=== PATIENT | male | born 1945 | race Two or more races ===

== ENCOUNTER 2022-10-02 14:54 | Emergency (ER) | payer OTHER ==
[~2022-10-02] VITALS: Ht 172.7 cm; Wt 64.5 kg
[2022-10-02 16:44] LABS: Urine Bacteria FEW /hpf (None Seen); Urine Blood 1+ /uL (Negative); Urine Clarity Clear (Clear); Urine Color Yellow (Yellow); Urine Hyaline Cast FEW /lpf (0 - 2); Urine Mucus FEW (None Seen); Urine Protein, UAD TRACE (Negative); Urine Specific Gravity 1.012 (1.001-1.035); Urine Urobilinogen Normal (Negative); Urine WBC <1 /hpf (0 - 3); Urine pH 5.5 (5.0-8.0)
[2022-10-02 17:12] LABS: Basophils # (auto) 0.1 10 ^3/uL (0-0.2); Basophils % (auto) 0.6 % (0.0-2.0); Eosinophils # (auto) 0.1 10 ^3/uL (0-0.8); Eosinophils % (auto) 0.7 % (0.0-7.0); Hematocrit 37.8 % (41.0-53.0); Hemoglobin 12.8 g/dL (13.5-17.5); Lymphocytes % (auto) 10.1 % (10.0-50.0); Mean Corpuscular Hemoglobin 30.3 pg (28.0-32.0); Mean Corpuscular Hgb Conc. 33.8 g/dL (32.0-36.0); Mean Corpuscular Volume 89.7 fL (80.0-100.0); Monocytes # (auto) 0.8 10 ^3/uL (0-1.3); Monocytes % (auto) 8.2 % (0.0-12.0); Neutrophils # (auto) 8.4 10 ^3/uL (1.6-8.6); Neutrophils % (auto) 80.4 % (37.0-80.0); Red Blood Cells 4.21 10^6/uL (4.5-5.90); Red Cell Distribution Width 12.7 % (11.8-14.3); White Blood Cell 10.4 10^3/uL (4.4-10.8)
[2022-10-02 17:31] LABS: Albumin 3.8 g/dL (3.4-5.0); Calcium 9.5 mg/dL (8.5-10.1)
[2022-10-02 17:34] LABS: BUN/Creatinine Ratio 10.5 (10.0-20.0); Bilirubin, Total 0.8 mg/dL (0.2-1.0); Total Protein 8.2 g/dL (6.4-8.2)
[2022-10-02] MEDS ORDERED: TAMS-35 PO ×3 (19:27→19:38)
[2022-10-02] MEDS ORDERED: HYDR-4902 PO (19:38)
[2022-10-02] MEDS ORDERED: HYDROcodone-ACET 5/325MG TAB PO ONE (19:45)
[2022-10-02 20:11] VITALS: BP 167/103; PULSE 97; RESP 20; TEMP 98; O2SAT 98
== END 2022-10-02 20:16 | disposition home or self-care (01) ==
LOC: ER 14:54
DX: N13.30 Unspecified hydronephrosis (principal); R33.9 Retention of urine, unspecified; Z79.899 Other long term (current) drug therapy
CPT/HCPCS: 36415; 51702; 74176; 80053; 81001; 85025

== ENCOUNTER → 2022-12-17 | Outpatient (CLI) | payer OTHER ==
[~2022-12-17] VITALS: Ht 152.4 cm; Wt 66.7 kg
[~2022-12-17] MED LIST: ADENOSINE 56 MG in GIVE UN-DILUTED 0 ML IV STA; HYDR-4902 PO; TAMS-35 PO
== END | disposition home or self-care (01) ==
LOC: XYW 09:13
PROVIDERS: ATTEND Student in an Organized Health Care Education/Training Program
DX: Z01.810 Encounter for preprocedural cardiovascular examination (principal); I70.0 Atherosclerosis of aorta; I10 Essential (primary) hypertension; N40.1 Benign prostatic hyperplasia with lower urinary tract symptoms
CPT/HCPCS: 78452; 93017; A9500; J0153

== ENCOUNTER 2023-01-03 06:09 | Inpatient (IN) | payer OTHER ==
[2022-12-31 14:49] LABS: Basophils # (auto) 0 10 ^3/uL (0-0.2); Basophils % (auto) 0.5 % (0.0-2.0); Eosinophils # (auto) 0.2 10 ^3/uL (0-0.8); Eosinophils % (auto) 2.2 % (0.0-7.0); Hematocrit 27.6 % (41.0-53.0); Hemoglobin 9.3 g/dL (13.5-17.5); Lymphocytes # (auto) 2.3 10 ^3/uL (0.4-5.4); Lymphocytes % (auto) 24.3 % (10.0-50.0); Mean Corpuscular Hemoglobin 30.3 pg (28.0-32.0); Mean Corpuscular Hgb Conc. 33.9 g/dL (32.0-36.0); Mean Corpuscular Volume 89.4 fL (80.0-100.0); Monocytes # (auto) 0.8 10 ^3/uL (0-1.3); Monocytes % (auto) 8.3 % (0.0-12.0); Neutrophils # (auto) 6.1 10 ^3/uL (1.6-8.6); Neutrophils % (auto) 64.7 % (37.0-80.0); Red Blood Cells 3.09 10^6/uL (4.5-5.90); Red Cell Distribution Width 13.2 % (11.8-14.3); White Blood Cell 9.5 10^3/uL (4.4-10.8)
[2022-12-31 15:14] LABS: INR 1.04 (0.9-1.15); Prothrombin Time 10.9 sec (9.3-11.8)
[2022-12-31 15:21] LABS: Urine Bacteria FEW /hpf (None Seen); Urine Blood 2+ /uL (Negative); Urine Budding Yeast MANY /hpf (None Seen); Urine Clarity CLOUDY (Clear); Urine Protein, UAD 1+ (Negative); Urine Specific Gravity 1.015 (1.001-1.035); Urine Urobilinogen Normal (Negative); Urine WBC 1320 /hpf (0 - 3); Urine WBC Clumps PRESENT /hpf (None Seen); Urine pH 6.5 (5.0-8.0)
[2022-12-31 15:26] LABS: Alanine Aminotransferase 43 U/L (7-40); Albumin 4.3 g/dL (3.2-4.8); Alkaline Phosphatase 88 U/L (46-116); Anion Gap 7 (5-15); Aspartate Aminotransferase 23 U/L (13-40); BUN/Creatinine Ratio 13.8 (10.0-20.0); Blood Urea Nitrogen 38 mg/dL (9-23); Calcium 10.1 mg/dL (8.5-10.1); Carbon Dioxide 23 mmol/L (20-30); Chloride 105 mmol/L (98-107); Glucose 76 mg/dL (74-106); Potassium 4.7 mmol/L (3.5-5.1); Sodium 135 mmol/L (136-145)
[2022-12-31 15:27] LABS: Bilirubin, Total 0.5 mg/dL (0.2-1.0); Total Protein 9.3 g/dL (5.7-8.2)
[2022-12-31 15:30] LABS: Urine Color STRAW (Yellow)
[~2023-01-03] VITALS: Ht 172.7 cm; Wt 59.6 kg
[~2023-01-03 06:09] MED LIST changes: -ADENOSINE 56 MG in GIVE UN-DILUTED 0 ML IV STA; +AMLO1TAB22 PO; -HYDR-4902 PO; +LOSA25TA15 PO
[2023-01-03] MEDS ORDERED: CIPROFLOXACIN 400MG/200ML 200 ML IV ONE (06:34)
[2023-01-03] MEDS ORDERED: PROPOFOL 10 MG/ML 20 ML IV ONE (07:04)
[2023-01-03] MEDS ORDERED: fentaNYL CITRATE 100 MCG/2 ML VL ONE ×2 (07:04→15:54)
[2023-01-03] MEDS ORDERED: ONDANSETRON HCL 4 MG/2 ML VIAL ONE (07:42)
[2023-01-03] MEDS ORDERED: ePHEDrine SULFATE 50 MG/ML AMP ONE (07:42)
[2023-01-03] MEDS ORDERED: DexAMETHasone SOD PHOS 10MG/1ML VIAL INJ ONE (07:42)
[2023-01-03] MEDS ORDERED: HYDROmorphone HCL 2 MG/ML VL/or syr ONE (07:58)
[2023-01-03] MEDS ORDERED: MORPHINE SULFATE INJ 2 MG/ml SYRG IV PRN ×2 (08:45→10:00)
[2023-01-03] MEDS ORDERED: NITROGLYCERIN 0.4 MG SL TAB SL PRN (08:45)
[2023-01-03] MEDS ORDERED: ONDANSETRON HCL 4 MG/2 ML VIAL IV PRN ×2 (09:00→10:00)
[2023-01-03] MEDS ORDERED: HYDROmorphone HCL 2 MG/ML VL/or syr IV PRN (09:00)
[2023-01-03] MEDS ORDERED: ACETAMINOPHEN 500 MG TAB PO PRN (10:00)
[2023-01-03] MEDS ORDERED: SODIUM CHLORIDE 0.9% 1,000 ML IV ONE (10:00)
[2023-01-03] MEDS: amLODIPine BESYLATE 5 MG TAB PO SCH (10:00)
[2023-01-03] MEDS ORDERED: LIDOCAINE 2%HCL (LOCAL ANESTH.) INJ 20ML MDV ONE (15:48)
[2023-01-03] MEDS ORDERED: IODIXANOL 320MG/ML 100ML BTL IV ONE (15:48)
[2023-01-03] MEDS ORDERED: MIDAZOLAM HCL 2MG/2ML 2ml VIAL (1mg/ml) ONE (15:54)
[2023-01-03] MEDS ORDERED: cefTRIAXone 1GM/50ML D5W 50 ML IV ONE (16:05)
[2023-01-03] MEDS ORDERED: hydrALAZINE HCL 20 MG/ML VL ONE (16:38)
[2023-01-03 17:31] VITALS: BP 121/73; PULSE 93; RESP 15; TEMP 98.9; O2SAT 100
[2023-01-03 17:44] VITALS: BP 114/72; PULSE 89; RESP 16; O2SAT 98
[2023-01-03 17:56] VITALS: BP 119/69; PULSE 85; RESP 18; O2SAT 99
[2023-01-03 18:11] VITALS: BP 111/75; PULSE 91; RESP 16; O2SAT 99
[2023-01-03 20:00] VITALS: O2SAT 99
[2023-01-03 22:00] VITALS: BP 125/68; PULSE 85; RESP 18; TEMP 97.8; O2SAT 99
[2023-01-04] VITALS (7 sets, daily range): BP systolic 103–128; BP diastolic 66–74; PULSE 70–82; RESP 16–21; TEMP 76–98.7; O2SAT 93–99
[2023-01-04] MEDS: HYDROcodone-ACET 5/325MG TAB PO PRN ×2 (03:08→22:30)
[2023-01-04 06:59] LABS: Basophils # (auto) 0 10 ^3/uL (0-0.2); Basophils % (auto) 0.2 % (0.0-2.0); Eosinophils # (auto) 0 10 ^3/uL (0-0.8); Lymphocytes # (auto) 1.3 10 ^3/uL (0.4-5.4); Monocytes # (auto) 0.7 10 ^3/uL (0-1.3); Neutrophils % (auto) 77.7 % (37.0-80.0)
[2023-01-04 07:01] LABS: Eosinophils % (auto) 0.2 % (0.0-7.0); Hematocrit 23.1 % (41.0-53.0); Lymphocytes % (auto) 14.3 % (10.0-50.0); Mean Corpuscular Hemoglobin 30.7 pg (28.0-32.0); Mean Corpuscular Hgb Conc. 34.5 g/dL (32.0-36.0); Monocytes % (auto) 7.6 % (0.0-12.0); Neutrophils # (auto) 6.9 10 ^3/uL (1.6-8.6); Red Cell Distribution Width 13.4 % (11.8-14.3); White Blood Cell 8.9 10^3/uL (4.4-10.8)
[2023-01-04 07:02] LABS: Chloride 107 mmol/L (98-107); Potassium 4.7 mmol/L (3.5-5.1); Sodium 135 mmol/L (136-145)
[2023-01-04 07:03] LABS: Anion Gap 7 (5-15); Calcium 9.2 mg/dL (8.5-10.1); Carbon Dioxide 21 mmol/L (20-30)
[2023-01-04 07:08] LABS: BUN/Creatinine Ratio 14.3 (10.0-20.0); Blood Urea Nitrogen 40 mg/dL (9-23); Glucose 91 mg/dL (74-106)
[2023-01-04] MEDS: cefTRIAXone 1GM/50ML D5W 50 ML IV SCH (09:39)
[2023-01-04] MEDS: amLODIPine BESYLATE 5 MG TAB PO SCH (10:00)
[2023-01-04] MEDS: DOCUSATE SOD 100 MG CAP PO PRN (17:31)
[2023-01-05] VITALS (7 sets, daily range): BP systolic 109–131; BP diastolic 65–75; PULSE 67–83; RESP 14–18; TEMP 97.8–98.5; O2SAT 96–100
[2023-01-05] MEDS: cefTRIAXone 1GM/50ML D5W 50 ML IV SCH (09:25)
[2023-01-05] MEDS: amLODIPine BESYLATE 5 MG TAB PO SCH (09:25)
[2023-01-05] MEDS: DOCUSATE SOD 100 MG CAP PO PRN (09:28)
[2023-01-05 14:04] LABS: Basophils # (auto) 0.1 10 ^3/uL (0-0.2); Eosinophils # (auto) 0.1 10 ^3/uL (0-0.8); Eosinophils % (auto) 1.6 % (0.0-7.0); Hematocrit 26.5 % (41.0-53.0); Hemoglobin 8.9 g/dL (13.5-17.5); Lymphocytes # (auto) 1.6 10 ^3/uL (0.4-5.4); Lymphocytes % (auto) 19.3 % (10.0-50.0); Mean Corpuscular Hgb Conc. 33.6 g/dL (32.0-36.0); Mean Corpuscular Volume 89.2 fL (80.0-100.0); Monocytes # (auto) 0.4 10 ^3/uL (0-1.3); Monocytes % (auto) 4.3 % (0.0-12.0); Neutrophils # (auto) 6.2 10 ^3/uL (1.6-8.6); Neutrophils % (auto) 73.8 % (37.0-80.0); Red Blood Cells 2.97 10^6/uL (4.5-5.90); Red Cell Distribution Width 13.8 % (11.8-14.3); White Blood Cell 8.5 10^3/uL (4.4-10.8)
[2023-01-05 14:05] LABS: Hemoglobin 8.8 g/dL (13.5-17.5); Mean Corpuscular Hemoglobin 30.4 pg (28.0-32.0); Mean Corpuscular Volume 89.4 fL (80.0-100.0); Red Blood Cells 2.91 10^6/uL (4.5-5.90); White Blood Cell 8.6 10^3/uL (4.4-10.8)
[2023-01-05 14:12] LABS: Chloride 105 mmol/L (98-107); Potassium 4.4 mmol/L (3.5-5.1); Sodium 135 mmol/L (136-145)
[2023-01-05 14:13] LABS: Anion Gap 9 (5-15); Calcium 8.8 mg/dL (8.7-10.4); Carbon Dioxide 21 mmol/L (20-30)
[2023-01-05 14:18] LABS: BUN/Creatinine Ratio 16.9 (10.0-20.0); Blood Urea Nitrogen 45 mg/dL (9-23); Glucose 146 mg/dL (74-106)
[2023-01-05] MEDS: HYDROcodone-ACET 5/325MG TAB PO PRN (15:26)
[2023-01-06 05:00] VITALS: BP 129/75; PULSE 81; RESP 18; TEMP 98.5; O2SAT 97
[2023-01-06 05:44] LABS: Basophils # (auto) 0 10 ^3/uL (0-0.2); Basophils % (auto) 0.6 % (0.0-2.0); Eosinophils # (auto) 0.2 10 ^3/uL (0-0.8); Eosinophils % (auto) 2.3 % (0.0-7.0); Hematocrit 24.9 % (41.0-53.0); Hemoglobin 8.6 g/dL (13.5-17.5); Lymphocytes # (auto) 1.6 10 ^3/uL (0.4-5.4); Lymphocytes % (auto) 20.2 % (10.0-50.0); Mean Corpuscular Hemoglobin 30.6 pg (28.0-32.0); Mean Corpuscular Hgb Conc. 34.4 g/dL (32.0-36.0); Mean Corpuscular Volume 89.1 fL (80.0-100.0); Monocytes # (auto) 0.7 10 ^3/uL (0-1.3); Monocytes % (auto) 9.2 % (0.0-12.0); Neutrophils # (auto) 5.3 10 ^3/uL (1.6-8.6); Neutrophils % (auto) 67.7 % (37.0-80.0); Red Blood Cells 2.79 10^6/uL (4.5-5.90); Red Cell Distribution Width 13.5 % (11.8-14.3); White Blood Cell 7.8 10^3/uL (4.4-10.8)
[2023-01-06 05:59] LABS: Alanine Aminotransferase 28 U/L (7-40); Albumin 3.6 g/dL (3.2-4.8); Alkaline Phosphatase 76 U/L (46-116); Anion Gap 7 (5-15); Aspartate Aminotransferase 21 U/L (13-40); BUN/Creatinine Ratio 15.1 (10.0-20.0); Blood Urea Nitrogen 40 mg/dL (9-23); Calcium 8.8 mg/dL (8.7-10.4); Carbon Dioxide 21 mmol/L (20-30); Chloride 106 mmol/L (98-107); Glucose 84 mg/dL (74-106); Potassium 4.5 mmol/L (3.5-5.1); Sodium 134 mmol/L (136-145)
[2023-01-06 06:00] LABS: Bilirubin, Total 0.3 mg/dL (0.2-1.0); Total Protein 7.7 g/dL (5.7-8.2)
[2023-01-06 08:00] VITALS: BP 144/76; PULSE 73; RESP 20; TEMP 98.8; O2SAT 97
[2023-01-06 08:47] VITALS: BP 144/76; PULSE 73; RESP 20; TEMP 98.8; O2SAT 97
[2023-01-06] MEDS: cefTRIAXone 1GM/50ML D5W 50 ML IV SCH (09:41)
[2023-01-06] MEDS: amLODIPine BESYLATE 5 MG TAB PO SCH (09:41)
[2023-01-06 13:00] VITALS: BP 127/77; PULSE 76; RESP 18; TEMP 99.3; O2SAT 99
[2023-01-06] MEDS ORDERED: DOCU-265 PO (13:11)
[2023-01-06] MEDS ORDERED: CEPH250C PO (13:11)
[2023-01-06 14:16] VITALS: BP 127/77; PULSE 76; RESP 18; TEMP 99.3; O2SAT 99
[2023-01-08 07:06] LABS: Immunoglobulin A 246 mg/dL (61-437); Immunoglobulin G, Serum 2954 mg/dL (603-1613); Immunoglobulin M 161 mg/dL (15-143)
[2023-01-08 08:07] LABS: PSA Free 3.67 ng/mL
[2023-01-08 13:06] LABS: Alpha-1-Globulin 0.2 g/dL (0.0-0.4); Alpha-2-Globulin 0.6 g/dL (0.4-1.0); Gamma Globulin 2.6 g/dL (0.4-1.8); Globulin Total 4.3 g/dL (2.2-3.9); Protein Total Serum 7.3 g/dL (6.0-8.5)
== END 2023-01-06 16:05 | disposition home or self-care (01) | DRG 717 ==
LOC: SUR 06:09 → OVERFLOW 08:44 → CENTRAL 13:38 → TELE-CENTR 01-05 11:43 → CENTRAL 01-05 11:44
PROVIDERS: ADMIT Urology; ATTEND Nurse Practitioner Acute Care
PROC: 0VB08ZX Excision of Prostate, Via Natural or Artificial Opening Endoscopic, Diagnostic (ICD-10-PCS; 2023-01-03)
PROC: 0TBC8ZZ Excision of Bladder Neck, Via Natural or Artificial Opening Endoscopic (ICD-10-PCS; 2023-01-03 07:26)
PROC: 0T763DZ Dilation of Right Ureter with Intraluminal Device, Percutaneous Approach (ICD-10-PCS; principal; 2023-01-04)
PROC: BT161ZZ Fluoroscopy of Right Ureter using Low Osmolar Contrast (ICD-10-PCS; 2023-01-04)
DX: N40.1 Benign prostatic hyperplasia with lower urinary tract symptoms (principal); N17.0 Acute kidney failure with tubular necrosis; N13.6 Pyonephrosis; N13.8 Other obstructive and reflux uropathy; C61 Malignant neoplasm of prostate; N18.9 Chronic kidney disease, unspecified; I12.9 Hypertensive chronic kidney disease with stage 1 through stage 4 chronic kidney disease, or unspecified chronic kidney disease; R79.89 Other specified abnormal findings of blood chemistry; R33.8 Other retention of urine; Z79.899 Other long term (current) drug therapy; Z80.0 Family history of malignant neoplasm of digestive organs; Z80.3 Family history of malignant neoplasm of breast; Z90.79 Acquired absence of other genital organ(s)
CPT/HCPCS: 36415; 74176; 76775; 76942; 78306; 80048; 80053; 81001; 82784; 83883; 84154; 84155; 84165; 85025; 85027; 85610; 85730; 86334; 87086; 99152; 99153; G0378; J0696; J1100; J2250; J2405; J2704; Q9967

== ENCOUNTER → 2023-03-27 | Outpatient (CLI) | payer OTHER ==
[~2023-03-27] MED LIST changes: +CEPH250C PO; +DOCU-265 PO
[2023-03-27 15:12] LABS: Basophils # (auto) 0 10 ^3/uL (0-0.2); Basophils % (auto) 0.8 % (0.0-2.0); Eosinophils # (auto) 0.1 10 ^3/uL (0-0.8); Eosinophils % (auto) 2.4 % (0.0-7.0); Hematocrit 36.6 % (41.0-53.0); Hemoglobin 12.3 g/dL (13.5-17.5); Lymphocytes # (auto) 1.4 10 ^3/uL (0.4-5.4); Lymphocytes % (auto) 22.7 % (10.0-50.0); Mean Corpuscular Hemoglobin 30.6 pg (28.0-32.0); Mean Corpuscular Hgb Conc. 33.5 g/dL (32.0-36.0); Mean Corpuscular Volume 91.4 fL (80.0-100.0); Monocytes # (auto) 0.4 10 ^3/uL (0-1.3); Monocytes % (auto) 6.1 % (0.0-12.0); Neutrophils # (auto) 4.3 10 ^3/uL (1.6-8.6); Nucleated Red Blood Cells % 0.1 %; Red Blood Cells 4.01 10^6/uL (4.5-5.90); Red Cell Distribution Width 12.7 % (11.8-14.3); White Blood Cell 6.3 10^3/uL (4.4-10.8)
[2023-03-27 15:30] LABS: Alanine Aminotransferase 33 U/L (7-40); Albumin 4.5 g/dL (3.2-4.8); Alkaline Phosphatase 79 U/L (46-116); Anion Gap 5 (5-15); Aspartate Aminotransferase 27 U/L (13-40); BUN/Creatinine Ratio 15.7 (10.0-20.0); Blood Urea Nitrogen 32 mg/dL (9-23); Calcium 10.5 mg/dL (8.5-10.1); Carbon Dioxide 24 mmol/L (20-30); Chloride 106 mmol/L (98-107); Glucose 75 mg/dL (74-106); Potassium 4.4 mmol/L (3.5-5.1); Sodium 135 mmol/L (136-145)
[2023-03-27 15:31] LABS: Bilirubin, Total 0.5 mg/dL (0.2-1.0); Total Protein 8.3 g/dL (5.7-8.2)
[2023-03-27 15:39] LABS: Prostate Specific Antigen 0.06 ng/mL (0.0-4.0)
[2023-03-27 15:42] LABS: Ferritin 419.5 ng/mL (22-322)
== END | disposition home or self-care (01) ==
LOC: LAB 14:18
DX: C61 Malignant neoplasm of prostate (principal)
CPT/HCPCS: 36415; 80053; 82728; 83540; 83615; 84153; 85025

== ENCOUNTER → 2023-08-13 | Outpatient (CLI) | payer OTHER ==
[~2023-08-13] MED LIST changes: -AMLO1TAB22 PO; -CEPH250C PO; -DOCU-265 PO; +LOSA-533 PO; -LOSA25TA15 PO; +RELU120T PO; -TAMS-35 PO
[2023-08-13 09:06] LABS: Urine Bacteria None Seen /hpf (None Seen)
[2023-08-13 09:27] LABS: Basophils # (auto) 0 10 ^3/uL (0-0.2); Basophils % (auto) 0.4 % (0.0-2.0); Eosinophils # (auto) 0.2 10 ^3/uL (0-0.8); Eosinophils % (auto) 2.9 % (0.0-7.0); Hematocrit 29.7 % (41.0-53.0); Hemoglobin 10.2 g/dL (13.5-17.5); Lymphocytes # (auto) 0.8 10 ^3/uL (0.4-5.4); Lymphocytes % (auto) 10.3 % (10.0-50.0); Mean Corpuscular Hemoglobin 31.2 pg (28.0-32.0); Mean Corpuscular Hgb Conc. 34.4 g/dL (32.0-36.0); Mean Corpuscular Volume 90.7 fL (80.0-100.0); Monocytes # (auto) 0.6 10 ^3/uL (0-1.3); Monocytes % (auto) 7.5 % (0.0-12.0); Neutrophils # (auto) 6.2 10 ^3/uL (1.6-8.6); Neutrophils % (auto) 78.9 % (37.0-80.0); Red Blood Cells 3.28 10^6/uL (4.5-5.90); Red Cell Distribution Width 11.8 % (11.8-14.3); White Blood Cell 7.8 10^3/uL (4.4-10.8)
[2023-08-13 09:42] LABS: Urine Blood TRACE /uL (Negative); Urine Budding Yeast OCCASIONAL /hpf (None Seen); Urine Clarity Turbid (Clear); Urine Color Colorless (Yellow); Urine Protein, UAD TRACE (Negative); Urine Specific Gravity 1.008 (1.001-1.035); Urine Urobilinogen Normal (Negative); Urine WBC 133 /hpf (0 - 3); Urine WBC Clumps PRESENT /hpf (None Seen); Urine pH 5.5 (5.0-9.0)
[2023-08-13 10:01] LABS: Alanine Aminotransferase 22 U/L (7-40); Albumin 4.3 g/dL (3.2-4.8); Alkaline Phosphatase 70 U/L (46-116); Anion Gap 8 (5-15); Aspartate Aminotransferase 12 U/L (13-40); BUN/Creatinine Ratio 15.8 (10.0-20.0); Bilirubin, Total 0.3 mg/dL (0.2-1.0); Blood Urea Nitrogen 44 mg/dL (9-23); Calcium 9.9 mg/dL (8.5-10.1); Carbon Dioxide 21 mmol/L (20-30); Chloride 109 mmol/L (98-107); Glucose 92 mg/dL (74-106); Potassium 4.4 mmol/L (3.5-5.1); Sodium 138 mmol/L (136-145); Total Protein 7.4 g/dL (5.7-8.2)
[2023-08-13 11:19] LABS: Creatinine, Urine 56.03 mg/dL (30.0-125.0)
== END | disposition home or self-care (01) ==
LOC: LAB 08:55
PROVIDERS: ATTEND Internal Medicine Nephrology
DX: N18.30 Chronic kidney disease, stage 3 unspecified (principal); D63.1 Anemia in chronic kidney disease; M10.9 Gout, unspecified; E56.9 Vitamin deficiency, unspecified; E21.3 Hyperparathyroidism, unspecified; R80.9 Proteinuria, unspecified
CPT/HCPCS: 36415; 80053; 81001; 82043; 82570; 84153; 84156; 85025

== ENCOUNTER → 2024-01-13 | Outpatient (CLI) | payer OTHER ==
[2024-01-13 10:01] LABS: Basophils # (auto) 0 10 ^3/uL (0-0.2); Basophils % (auto) 0.8 % (0.0-2.0); Eosinophils # (auto) 0.1 10 ^3/uL (0-0.8); Eosinophils % (auto) 2.1 % (0.0-7.0); Hematocrit 29.6 % (41.0-53.0); Hemoglobin 10.2 g/dL (13.5-17.5); Lymphocytes # (auto) 0.7 10 ^3/uL (0.4-5.4); Lymphocytes % (auto) 14.8 % (10.0-50.0); Mean Corpuscular Hemoglobin 31.5 pg (28.0-32.0); Mean Corpuscular Hgb Conc. 34.6 g/dL (32.0-36.0); Mean Corpuscular Volume 91.2 fL (80.0-100.0); Monocytes # (auto) 0.4 10 ^3/uL (0-1.3); Monocytes % (auto) 7.8 % (0.0-12.0); Neutrophils # (auto) 3.8 10 ^3/uL (1.6-8.6); Neutrophils % (auto) 74.5 % (37.0-80.0); Nucleated Red Blood Cells % 0.1 %; Platelet Count (auto) 201 10^3/uL (140-450); Red Blood Cells 3.25 10^6/uL (4.5-5.90); Red Cell Distribution Width 12.1 % (11.8-14.3)
[2024-01-13 10:13] LABS: Chloride 109 mmol/L (98-107); Potassium 4.1 mmol/L (3.5-5.1); Sodium 139 mmol/L (136-145)
[2024-01-13 10:14] LABS: Anion Gap 7 (5-15); Carbon Dioxide 23 mmol/L (20-31)
[2024-01-13 10:15] LABS: Calcium 10.7 mg/dL (8.7-10.4)
[2024-01-13 10:19] LABS: BUN/Creatinine Ratio 15.5 (10.0-20.0); Blood Urea Nitrogen 47 mg/dL (9-23); Glucose 84 mg/dL (74-106)
[2024-01-13 10:20] LABS: Magnesium 2.2 mg/dL (1.6-2.6)
[2024-01-13 10:21] LABS: Phosphorus 4.2 mg/dL (2.4-5.1)
== END | disposition home or self-care (01) ==
LOC: LAB 08:59
PROVIDERS: ATTEND Internal Medicine Nephrology
DX: C61 Malignant neoplasm of prostate (principal); R97.20 Elevated prostate specific antigen [PSA]; E11.22 Type 2 diabetes mellitus with diabetic chronic kidney disease; N18.30 Chronic kidney disease, stage 3 unspecified; E11.21 Type 2 diabetes mellitus with diabetic nephropathy; D63.1 Anemia in chronic kidney disease; N39.0 Urinary tract infection, site not specified; R80.9 Proteinuria, unspecified; E21.3 Hyperparathyroidism, unspecified; M10.9 Gout, unspecified; E55.9 Vitamin D deficiency, unspecified
CPT/HCPCS: 36415; 80048; 82306; 83735; 83970; 84100; 84153; 85025

== ENCOUNTER → 2024-02-13 | Day surgery (SDC) | payer OTHER ==
[2024-02-10 11:21] LABS: Urine Bacteria FEW /hpf (None Seen); Urine Blood TRACE /uL (Negative); Urine Clarity Clear (Clear); Urine Color Colorless (Yellow); Urine Protein, UAD Negative (Negative); Urine Specific Gravity 1.009 (1.001-1.035); Urine Squamous Epithelial Cell FEW /hpf (<5); Urine Urobilinogen Normal (Negative); Urine WBC 4 /hpf (0 - 3); Urine pH 5.5 (5.0-9.0)
[2024-02-10 11:29] LABS: Basophils # (auto) 0 10 ^3/uL (0-0.2); Basophils % (auto) 0.6 % (0.0-2.0); Eosinophils # (auto) 0.1 10 ^3/uL (0-0.8); Eosinophils % (auto) 1.7 % (0.0-7.0); Hematocrit 27.6 % (41.0-53.0); Hemoglobin 9.6 g/dL (13.5-17.5); Lymphocytes # (auto) 0.8 10 ^3/uL (0.4-5.4); Lymphocytes % (auto) 14.2 % (10.0-50.0); Mean Corpuscular Hemoglobin 31.3 pg (28.0-32.0); Mean Corpuscular Hgb Conc. 34.6 g/dL (32.0-36.0); Mean Corpuscular Volume 90.7 fL (80.0-100.0); Monocytes # (auto) 0.5 10 ^3/uL (0-1.3); Monocytes % (auto) 8.4 % (0.0-12.0); Neutrophils # (auto) 4.3 10 ^3/uL (1.6-8.6); Neutrophils % (auto) 75.1 % (37.0-80.0); Platelet Count (auto) 253 10^3/uL (140-450); Red Blood Cells 3.05 10^6/uL (4.5-5.90); Red Cell Distribution Width 11.8 % (11.8-14.3); White Blood Cell 5.8 10^3/uL (4.4-10.8)
[2024-02-10 11:45] LABS: INR 1.02 (0.9-1.15); Partial Thromboplastin Time 31.4 SEC (24.5-34.5); Prothrombin Time 10.8 sec (9.3-11.8)
[2024-02-10 12:09] LABS: Alanine Aminotransferase 15 U/L (7-40); Albumin 4.6 g/dL (3.2-4.8); Alkaline Phosphatase 87 U/L (46-116); Anion Gap 11 (5-15); Aspartate Aminotransferase 17 U/L (13-40); BUN/Creatinine Ratio 16.8 (10.0-20.0); Blood Urea Nitrogen 63 mg/dL (9-23); Calcium 10.7 mg/dL (8.7-10.4); Carbon Dioxide 24 mmol/L (20-31); Chloride 104 mmol/L (98-107); Glucose 93 mg/dL (74-106); Potassium 3.7 mmol/L (3.5-5.1); Sodium 139 mmol/L (136-145)
[2024-02-10 12:10] LABS: Bilirubin, Total 0.5 mg/dL (0.2-1.0); Total Protein 8.1 g/dL (5.7-8.2)
[~2024-02-13] VITALS: Ht 170.2 cm; Wt 70.3 kg
[~2024-02-13] MED LIST changes: +CIPROFLOXACIN 400MG/200ML 200 ML IV ONE; +DexAMETHasone SOD PHOS 10MG/1ML VIAL INJ ONE; +IOHEXOL 300 MG/ML 100ML BOTTLE IJ ONE; +ONDANSETRON HCL 4 MG/2 ML VIAL ONE; +PROPOFOL 10 MG/ML 20 ML IV ONE; +ePHEDrine SULFATE 50 MG/ML AMP ONE; +fentaNYL CITRATE 100 MCG/2 ML VL ONE
--- NOTE | 2024-02-13 11:36 | DVHNC2 ---
Procedure - OPERATIVE REPORT Pre-op. Diagnosis:1.Ureteral Stent (Foreign Body)2.Right hydronephrosis due to ureteral obstruction/stricture3.Stage 4 Prostate cancer4.Bladder neck obstruction Post-op. Diagnosis:1.Same as pre-op diagnosis Operation:1.Cystoscopy, Ureteral stent removal - Right2.Cystoscopy, Ureteral stent placement - Right Anesthesia:General Indications:Patient has chronic indwelling right ureteral stent due to obstructive right proximal ureteral stricture and metastatic prostate cancer.Risks of Infections and damage to the surrounding structures were discussed.Benefits of stent removal when it is no longer needed were explained.Informed consent obtained. Details of Procedure:Patient was place into a lithotomy position and prepped and draped in the usual manner. A 21 Fr. Cystoscope was assembled and introduced. Bladder neck obstruction was encountered and dilated. The existing right ureteral stent was removed with grasper.A sensor tip guide wire was advanced into the kidney and now a 6 Fr[address] x [address] stent was advanced into the kidney. Proper position was verified. The bladder was emptied and the cystoscope was removed. Cavazos catheter (20F) was placed temporarily for management of BNC. Patient tolerated the procedure well. Specimens:Right ureteral stent Complications:NoneFindings:Left UO difficult to identify. Notes:6 Fr[address] x [address] stent STACEY ARCOS MD Feb 13, 2024 11:36
[2024-02-13 12:16] VITALS: TEMP 97.5; O2SAT 97
[2024-02-13 12:46] VITALS: BP 118/76; PULSE 76; RESP 15; O2SAT 96
--- NOTE | 2024-02-13 12:51 | DVH ---
EXAM: XY C ARM FLUOROSCOPY UP TO 60MIN, XY KUB ABDOMEN SINGLE VIEW HISTORY: RIGHT URETERAL STENT EXCHANGE FINDINGS: Fluoroscopy was provided for an intraoperative procedure. A single image was obtained. 18.8 second s of fluoroscopic time was utilized. Cumulative radiation dose was reported at 3 mGy. IMPRESSION: 1. Fluoroscopy was provided for operative guidance. Please refer to the operative report for detaile d information.
== END | disposition home or self-care (01) ==
LOC: SUR 07:18
PROVIDERS: ATTEND Urology
DX: N13.1 Hydronephrosis with ureteral stricture, not elsewhere classified (principal); C61 Malignant neoplasm of prostate; N32.0 Bladder-neck obstruction; I12.9 Hypertensive chronic kidney disease with stage 1 through stage 4 chronic kidney disease, or unspecified chronic kidney disease; N18.9 Chronic kidney disease, unspecified; Z79.899 Other long term (current) drug therapy; Z98.890 Other specified postprocedural states
CPT/HCPCS: 36415; 52332; 74018; 80053; 81001; 85025; 85610; 85730; 87086; 88300; C1769; C2617; J0744; J1100; J2405; J2704; J3010; J7030; Q9967; 76000

== ENCOUNTER → 2024-03-03 | Outpatient (CLI) | payer OTHER ==
[~2024-03-03] MED LIST changes: -CIPROFLOXACIN 400MG/200ML 200 ML IV ONE; -DexAMETHasone SOD PHOS 10MG/1ML VIAL INJ ONE; -IOHEXOL 300 MG/ML 100ML BOTTLE IJ ONE; -ONDANSETRON HCL 4 MG/2 ML VIAL ONE; -PROPOFOL 10 MG/ML 20 ML IV ONE; -ePHEDrine SULFATE 50 MG/ML AMP ONE; -fentaNYL CITRATE 100 MCG/2 ML VL ONE
[2024-03-03 11:39] LABS: Chloride 106 mmol/L (98-107); Potassium 4.2 mmol/L (3.5-5.1); Sodium 139 mmol/L (136-145)
[2024-03-03 11:40] LABS: Anion Gap 8 (5-15); Carbon Dioxide 25 mmol/L (20-31)
[2024-03-03 11:45] LABS: BUN/Creatinine Ratio 17.8 (10.0-20.0); Glucose 92 mg/dL (74-106)
[2024-03-03 11:50] LABS: Blood Urea Nitrogen 59 mg/dL (9-23); Calcium 10.7 mg/dL (8.7-10.4)
== END | disposition home or self-care (01) ==
LOC: LAB 10:07
PROVIDERS: ATTEND Internal Medicine Nephrology
DX: E11.22 Type 2 diabetes mellitus with diabetic chronic kidney disease (principal); N18.30 Chronic kidney disease, stage 3 unspecified; D63.1 Anemia in chronic kidney disease; E11.21 Type 2 diabetes mellitus with diabetic nephropathy; N39.0 Urinary tract infection, site not specified; M10.9 Gout, unspecified; E21.3 Hyperparathyroidism, unspecified; E55.9 Vitamin D deficiency, unspecified; R80.9 Proteinuria, unspecified
CPT/HCPCS: 36415; 80048

== ENCOUNTER → 2024-05-05 | Outpatient (CLI) | payer OTHER ==
[2024-05-05 10:31] LABS: Basophils # (auto) 0 10 ^3/uL (0-0.2); Basophils % (auto) 0.7 % (0.0-2.0); Eosinophils # (auto) 0.1 10 ^3/uL (0-0.8); Eosinophils % (auto) 1.6 % (0.0-7.0); Hematocrit 25.1 % (41.0-53.0); Hemoglobin 8.8 g/dL (13.5-17.5); Lymphocytes # (auto) 0.9 10 ^3/uL (0.4-5.4); Lymphocytes % (auto) 13.6 % (10.0-50.0); Mean Corpuscular Hemoglobin 31.8 pg (28.0-32.0); Mean Corpuscular Hgb Conc. 35.2 g/dL (32.0-36.0); Mean Corpuscular Volume 90.4 fL (80.0-100.0); Monocytes # (auto) 0.6 10 ^3/uL (0-1.3); Monocytes % (auto) 8.4 % (0.0-12.0); Neutrophils % (auto) 75.7 % (37.0-80.0); Platelet Count (auto) 228 10^3/uL (140-450); Red Blood Cells 2.78 10^6/uL (4.5-5.90); Red Cell Distribution Width 12.5 % (11.8-14.3); White Blood Cell 6.6 10^3/uL (4.4-10.8)
[2024-05-05 10:57] LABS: Alanine Aminotransferase 17 U/L (7-40); Alkaline Phosphatase 80 U/L (46-116); Anion Gap 11 (5-15); Bilirubin, Total 0.5 mg/dL (0.2-1.0); Carbon Dioxide 22 mmol/L (20-31); Cholesterol 189 mg/dL (< 200); Glucose 95 mg/dL (74-106); HDL Cholesterol 56 mg/dL (40-59); Potassium 4.4 mmol/L (3.5-5.1); Sodium 141 mmol/L (136-145); Triglycerides 107 mg/dL (< 150)
[2024-05-05 11:04] LABS: Albumin 4.9 g/dL (3.2-4.8); Aspartate Aminotransferase 13 U/L (13-40); Blood Urea Nitrogen 75 mg/dL (9-23); Calcium 10.5 mg/dL (8.7-10.4); Chloride 108 mmol/L (98-107); LDL Cholesterol 114 mg/dL (< 100); Total Protein 8.3 g/dL (5.7-8.2)
== END | disposition home or self-care (01) ==
LOC: LAB 10:02
PROVIDERS: ATTEND Nurse Practitioner Family
DX: C61 Malignant neoplasm of prostate (principal); I12.9 Hypertensive chronic kidney disease with stage 1 through stage 4 chronic kidney disease, or unspecified chronic kidney disease; N18.4 Chronic kidney disease, stage 4 (severe); Z00.01 Encounter for general adult medical examination with abnormal findings
CPT/HCPCS: 36415; 80053; 80061; 84153; 84443; 85025

== ENCOUNTER → 2024-05-19 | Outpatient (CLI) | payer OTHER ==
[2024-05-19 14:46] LABS: Basophils # (auto) 0.1 10 ^3/uL (0-0.2); Eosinophils # (auto) 0.1 10 ^3/uL (0-0.8); Lymphocytes # (auto) 1.2 10 ^3/uL (0.4-5.4); Red Blood Cells 2.63 10^6/uL (4.5-5.90); Red Cell Distribution Width 12.3 % (11.8-14.3)
[2024-05-19 14:47] LABS: Basophils % (auto) 0.9 % (0.0-2.0); Eosinophils % (auto) 1.8 % (0.0-7.0); Hematocrit 23.9 % (41.0-53.0); Hemoglobin 8.3 g/dL (13.5-17.5); Lymphocytes % (auto) 16.6 % (10.0-50.0); Mean Corpuscular Hemoglobin 31.5 pg (28.0-32.0); Mean Corpuscular Hgb Conc. 34.7 g/dL (32.0-36.0); Mean Corpuscular Volume 90.7 fL (80.0-100.0); Monocytes # (auto) 0.7 10 ^3/uL (0-1.3); Monocytes % (auto) 9.2 % (0.0-12.0); Neutrophils # (auto) 5.2 10 ^3/uL (1.6-8.6); Neutrophils % (auto) 71.5 % (37.0-80.0); Platelet Count (auto) 233 10^3/uL (140-450); White Blood Cell 7.2 10^3/uL (4.4-10.8)
[2024-05-19 15:49] LABS: Alanine Aminotransferase 17 U/L (7-40); Alkaline Phosphatase 82 U/L (46-116); Anion Gap 11 (5-15); Aspartate Aminotransferase 16 U/L (13-40); BUN/Creatinine Ratio 14.2 (10.0-20.0); Calcium 10.2 mg/dL (8.7-10.4); Carbon Dioxide 22 mmol/L (20-31); Chloride 103 mmol/L (98-107); Glucose 99 mg/dL (74-106); Potassium 4.3 mmol/L (3.5-5.1); Sodium 136 mmol/L (136-145)
[2024-05-19 15:50] LABS: Bilirubin, Total 0.4 mg/dL (0.2-1.0)
[2024-05-19 15:51] LABS: % Iron Saturation 11.8 % (20-55)
[2024-05-19 15:54] LABS: Albumin 4.9 g/dL (3.2-4.8); Blood Urea Nitrogen 70 mg/dL (9-23); Total Protein 8.4 g/dL (5.7-8.2)
== END | disposition home or self-care (01) ==
LOC: LAB 14:35
PROVIDERS: ATTEND Nurse Practitioner Family
DX: C61 Malignant neoplasm of prostate (principal); N18.5 Chronic kidney disease, stage 5; D63.1 Anemia in chronic kidney disease
CPT/HCPCS: 36415; 80053; 82728; 83540; 83550; 85025

== ENCOUNTER 2024-05-27 09:36 | Emergency (ER) | payer OTHER ==
[~2024-05-27] VITALS: Ht 172.7 cm; Wt 68.9 kg
[2024-05-27 10:00] LABS: Urine Bacteria None Seen /hpf (None Seen)
[2024-05-27 10:15] LABS: Urine Blood TRACE /uL (Negative); Urine Clarity Clear (Clear); Urine Color Light-Yellow (Yellow); Urine Mucus FEW (None Seen); Urine Protein, UAD TRACE (Negative); Urine Specific Gravity 1.011 (1.001-1.035); Urine Squamous Epithelial Cell None Seen /hpf (<5); Urine Urobilinogen Normal (Negative); Urine WBC 6 /HPF (0-3); Urine pH 5.5 (5.0-9.0)
[2024-05-27 10:30] LABS: Basophils # (auto) 0.1 10 ^3/uL (0-0.2); Basophils % (auto) 0.9 % (0.0-2.0); Eosinophils # (auto) 0.1 10 ^3/uL (0-0.8); Eosinophils % (auto) 1.7 % (0.0-7.0); Hematocrit 26.5 % (41.0-53.0); Hemoglobin 9.1 g/dL (13.5-17.5); Lymphocytes # (auto) 0.9 10 ^3/uL (0.4-5.4); Lymphocytes % (auto) 13.7 % (10.0-50.0); Mean Corpuscular Hemoglobin 30.7 pg (28.0-32.0); Mean Corpuscular Hgb Conc. 34.3 g/dL (32.0-36.0); Mean Corpuscular Volume 89.4 fL (80.0-100.0); Monocytes # (auto) 0.5 10 ^3/uL (0-1.3); Monocytes % (auto) 6.6 % (0.0-12.0); Neutrophils # (auto) 5.2 10 ^3/uL (1.6-8.6); Neutrophils % (auto) 77.1 % (37.0-80.0); Nucleated Red Blood Cells % 0.1 %; Platelet Count (auto) 290 10^3/uL (140-450); Red Blood Cells 2.96 10^6/uL (4.5-5.90); Red Cell Distribution Width 12.1 % (11.8-14.3); White Blood Cell 6.8 10^3/uL (4.4-10.8)
[2024-05-27 10:39] LABS: Chloride 99 mmol/L (98-107); Potassium 3.6 mmol/L (3.5-5.1)
[2024-05-27 10:40] LABS: Anion Gap 14 (5-15); Carbon Dioxide 23 mmol/L (20-31)
[2024-05-27 10:44] LABS: Calcium 10.6 mg/dL (8.7-10.4); Sodium 136 mmol/L (136-145)
[2024-05-27 10:45] LABS: BUN/Creatinine Ratio 16.3 (10.0-20.0)
[2024-05-27 10:51] LABS: Glucose 109 mg/dL (74-106)
[2024-05-27 10:52] LABS: Blood Urea Nitrogen 101 mg/dL (9-23)
--- NOTE | 2024-05-27 11:05 | ED.PDOC ---
History of Present Illness HPI Comments 79M presents to the Er w/ daughter and w/ prior Hx of prostate cancer and has chemo but may be associated to the c/c of Flank pain. Daughter reports that they went to go see the pt's kidney doctor the other day and the kidney points went down and the doctor stated that the pt might have to get a nephrostomy soon. The pt states mild pain on the right flank. Denies chills, fever, N/V/D, SOB, CP or no other associated symptoms, modifiers, recent injuries or sick contacts at this time. Chief Complaint: Flank Pain Time Seen by MD: 10:20 Reviewed Notes: Nurses Notes, Medications, Allergies Allergies: Coded Allergies: NO KNOWN ALLERGIES (Unverified , 12/17/22) Home Meds Active Scripts Cephalexin (KEFLEX CAPSULE) 250 Mg Cp, 250 MG PO QID for 5 Days, #20 BOTTLE Prov:LOWELL GONZÁLES MD 05/27/24 Reported Medications Relugolix (Orgovyx) 120 Mg Tab, 50 MG PO DAILY, TAB 07/08/23 Losartan Potassium (Losartan Potassium) 25 Mg Tab, 25 MG PO BID, TAB 12/31/22 Information Source: Patient, Relative (Child) Mode of Arrival: Ambulatory Severity: Moderate Timing: Came on: Gradually Duration: Since onset Prehospital treatment: None Past Medical History PAST MEDICAL HISTORY: Cancer (Prostate cancer and had chemo), HTN, Denies Surgical History: Denies all surgeries Family History Family History: Reviewed,noncontributory to illness, Unknown Social History Smoker: Non-Smoker Alcohol: Denies ETOH Use Drugs: Denies Drug Use Lives In: Home Constitutional: denies: chills, diaphoresis, fatigue, fever, malaise, sweats, weakness, others EENTM: denies: blurred vision, double vision, ear bleeding, ear discharge, ear drainage, ear pain, ear ringing, eye pain, eye redness, hearing loss, mouth pain, mouth swelling, nasal discharge, nose bleeding, nose congestion, nose pain, photophobia, tearing, throat pain, throat swelling, voice changes, others Respiratory: denies: cough, hemoptysis, orthopnea, SOB at rest, shortness of breath, SOB with excertion, stridor, wheezing, others Cardiovascular: denies: chest pain, dizzy spells, diaphoresis, Dyspnea on exertion, edema, irregular heart beat, left arm pain, lightheadedness, palpitations, PND, syncope, others Gastrointestinal: denies: abdomen distended, abdominal pain, blood streaked bowels, constipated, diarrhea, dysphagia, difficulty swallowing, hematemesis, melena, nausea, poor appetite, poor fluid intake, rectal bleeding, rectal pain, vomiting, others Genitourinary: reports: flank pain; denies: burning, dysuria, frequency, hematuria, incontinence, penile discharge, penile sore, pain, testicle pain, testicle swelling, urgency, others Neurological: denies: dizziness, fainting, headache, left sided numbness, left sided weakness, numbness, paresthesia, pre-existing deficit, right sided numbness, right sided weakness, seizure, speech problems, tingling, tremors, weakness, others Musculoskeletal: denies: back pain, gout, joint pain, joint swelling, muscle pain, muscle stiffness, neck pain, others Integumetry: denies: bruises, change in color, change in hair/nails, dryness, laceration, lesions, lumps, rash, wounds, others Allergic/Immunocompromised: denies: Difficulty Healing, Frequent Infections, Hives, Itching, others Hematologic/Lymphatic: denies: anemia, blood clots, easy bleeding, easy bruising, swollen glands, others Endocrine: denies: excessive hunger, excessive sweating, excessive thirst, excessive urination, flushing, intolerance to cold, intolerance to heat, unexplained weight gain, unexplained weight loss, others Psychiatric: denies: anxiety, bipolar disorder, depression, hopeless, panic disorder, schizophrenia, sleepless, suicidal, others All Other Systems: Reviewed and Negative Physical Exam General Appearance: Moderate Distress, Normal HEENT: Normal ENT Inspection, Pharynx Normal, TMs Normal Neck: Full Range of Motion, Non-Tender, Normal, Normal Inspection Respiratory: Chest Non-Tender, Lungs Clear, No Accessory Muscle Use, No Respiratory Distress, Normal Breath Sounds Cardiovascular: No Edema, No JVD, No Murmur, No Gallop, Normal Peripheral Pulses, Regular Rate/Rhythm Breast Exam: Deferred Gastrointestinal: No Organomegaly, Non Tender, No Pulsatile Mass, Normal Bowel Sounds, Soft Genitalia: Deferred Pelvic: Deferred Rectal: Deferred Extremities: No calf tenderness, Normal capillary refill, Normal inspection, Normal range of motion, Non-tender, No pedal edema Musculoskeletal : Apperance: Normal Neurologic: Alert, hardware design engineer II-XII nml as Tested, No Motor Deficits, Normal Affect, Normal Mood, No Sensory Deficits Cerebellar Function: Normal Reflexes: Normal Skin: Dry, Normal Color, Warm Peripheral Pulses: 3+ Radial (R), 3+ Radial (L) Lymphatic: No Adenopathy Was a procedure done? Was a procedure done?: No Differential Dx Considerations may include: Anemia Electrolyte imbalance X-Ray, Labs, Meds, VS Vital Signs Date Time Temp Pulse Resp B/P (MAP) Pulse Ox O2 Delivery O2 Flow Rate FiO2 05/27/24 16:34 78 12 99 Room Air* 0 21 05/27/24 16:12 98.1 78 12 125/68 (87) 78 98.1 05/27/24 15:50 74 14 124/64 (84) 99 05/27/24 15:44 71 12 136/71 (92) 98 05/27/24 15:29 88 13 123/81 (95) 95 05/27/24 15:17 98.1 82 13 130/76 (94) 99 98.1 05/27/24 12:20 97.7 63 16 106/63 (77) 98 97.7 05/27/24 12:20 63 16 98 Room Air 05/27/24 09:49 97.9 73 20 131/71 (91) 100 97.9 Lab Test 05/27/24 12:10 05/27/24 10:07 05/27/24 09:50 Range/Units POC Glucose 123 H 70-106 mg/dl White Blood Count 6.8 4.4-10.8 10^3/uL Red Blood Count 2.96 L 4.5-5.90 10^6/uL Hemoglobin 9.1 L 13.5-17.5 g/dL Hematocrit 26.5 L 41.0-53.0 % Mean Corpuscular Volume 89.4 80.0-100.0 fL Mean Corpuscular Hemoglobin 30.7 28.0-32.0 pg Mean Corpuscular Hemoglobin Concent 34.3 32.0-36.0 g/dL Red Cell Distribution Width 12.1 11.8-14.3 % Platelet Count 290 140-450 10^3/uL Mean Platelet Volume 7.3 6.9-10.8 fL Neutrophils (%) (Auto) 77.1 37.0-80.0 % Lymphocytes (%) (Auto) 13.7 10.0-50.0 % Monocytes (%) (Auto) 6.6 0.0-12.0 % Eosinophils (%) (Auto) 1.7 0.0-7.0 % Basophils (%) (Auto) 0.9 0.0-2.0 % Neutrophils # (Auto) 5.2 1.6-8.6 10 ^3/uL Lymphocytes # (Auto) 0.9 0.4-5.4 10 ^3/uL Monocytes # (Auto) 0.5 0-1.3 10 ^3/uL Eosinophils # (Auto) 0.1 0-0.8 10 ^3/uL Basophils # (Auto) 0.1 0-0.2 10 ^3/uL Nucleated Red Blood Cells 0.1 % Prothrombin Time 10.3 9.3-11.8 sec Prothrombin Time INR 0.97 0.9-1.15 Sodium Level 136 136-145 mmol/L Potassium Level 3.6 3.5-5.1 mmol/L Chloride Level 99 98-107 mmol/L Carbon Dioxide Level 23 20-31 mmol/L Anion Gap 14 5-15 Blood Urea Nitrogen 101 *H 9-23 mg/dL Creatinine 6.18 H 0.700-1.30 mg/dL Glomerular Filtration Rate Calc 9 >90 mL/min BUN/Creatinine Ratio 16.3 10.0-20.0 Serum Glucose 109 H 74-106 mg/dL Calcium Level 10.6 H 8.7-10.4 mg/dL Urine Color Light-yellow Yellow Urine Clarity Clear Clear Urine pH 5.5 5.0-9.0 Urine Specific [place] 1.011 1.001-1.035 Urine Protein Trace H Negative Urine Ketones Negative Negative Urine Blood Trace H Negative /uL Urine Nitrite Negative Negative Urine Bilirubin Negative Negative Urine Urobilinogen Normal Negative mg/dL Urine Leukocyte Esterase 1+ Negative /uL Urine RBC <1 0 - 3 /hpf Urine Microscopic WBC 6 H 0-3 /HPF Urine Squamous Epithelial Cells None seen <5 /hpf Urine Bacteria None seen None Seen /hpf Urine Mucus Few None Seen Urine Glucose Normal Normal mg/dL Patient alert. History of kidney disease. Vitals stable. Answering questions. Kidney function elevated. Urinalysis shows UTI. Was given prescription of Keflex antibiotic. WBC within normal limits. Has a anemia. He was to follow up with nephrology. He was to follow up with the intervention radiologist for possible nephrostomy tube. Reviewed his history. Explained to the family. Is feeling much better. Had his nephrostomy tube. 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 Was told to follow up with his primary care physician. Was told to come back if there is any problem. Time of 1ST Reevaluation: 10:50 Reevaluation 1ST: Improved Patient Education/Counseling: Diagnosis, Treatment, Prognosis Family Education/Counseling: Diagnosis, Treatment, Prognosis Departure 1 Departure Time of Disposition: 11:22 Impression: Primary Impression: Chronic kidney disease Qualified Codes: N18.9 - Chronic kidney disease, unspecified Additional Impressions: Anemia Qualified Codes: D64.9 - Anemia, unspecified UTI (urinary tract infection) Qualified Codes: N30.00 - Acute cystitis without hematuria Disposition: 01 HOME / SELF CARE / HOMELESS Condition: Good e-Prescriptions Cephalexin (KEFLEX CAPSULE) 250 Mg Cp 250 MG PO QID for 5 Days, #20 BOTTLE Prov: LOWELL GONZÁLES MD 05/27/24 Discharged With: Self Critical Care Note Critical Care Time?: No Stability Stability form required: No Heart Score Heart Score: Heart Score Response (Comments) Value History N/A 0 EKG N/A 0 Age N/A 0 Risk Factors N/A 0 Troponin N/A 0 Total 0 I personally scribed for LOWELL GONZÁLES MD ([email or web address]) on 05/27/24 at 11:05. Electronically submitted by Wolfgang Doe ([email or web address]). LOWELL GONZÁLES MD May 27, 2024 11:05
[2024-05-27] MEDS ORDERED: CEPH250C PO (11:24)
[2024-05-27 12:09] LABS: INR 0.97 (0.9-1.15); Prothrombin Time 10.3 sec (9.3-11.8)
[2024-05-27] MEDS: MIDAZOLAM HCL 2MG/2ML 2ml VIAL (1mg/ml) ONE (14:07)
[2024-05-27] MEDS: fentaNYL CITRATE 100 MCG/2 ML VL ONE (14:07)
[2024-05-27] MEDS: ceFAZolin 1GM/50ML 50 ML IV ONE (14:08)
[2024-05-27] MEDS: LIDOCAINE 2%HCL (LOCAL ANESTH.) INJ 20ML MDV ONE (14:08)
[2024-05-27 15:17] VITALS: BP 130/76; PULSE 82; RESP 13; TEMP 98.1; O2SAT 99
[2024-05-27 15:29] VITALS: BP 123/81; PULSE 88; RESP 13; O2SAT 95
--- NOTE | 2024-05-27 15:31 | DVH ---
US US GUIDANCE FOR NEEDLE PLACEME, HISTORY: NEPHROSTOMY DRAIN PL PROCEDURE: Informed consent was obtained. The patient was placed on the fluoroscopic table in a prone position and IV sedation administered. 1 gram of Ancef was given. The right flank was prepped with c hlorhexidine which was allowed to dry and draped in the usual sterile fashion. Time out was performed . and the soft tissues infiltrated with 1% lidocaine local anesthetic. Utilizing ultrasound guidance, a 21 gauge Accu Stick needle was advanced from a posterolateral approach into an middle pole calyx, and a small amount of contrast was injected under fluoroscopy to confirm positioning. Over a mandril wire, exchange was made to a non-vascular access set, through which was advanced an 0.035 wire. Follo wing serial dilation, an 8.5 Ecuadorean multipurpose nephrostomy catheter was placed with tip pigtailed w ithin the renal pelvis. Position was confirmed with antegrade nephrostogram. The catheter was secured in place and connected to gravity drainage. A sterile dressing was applied. No immediate complicatio n was identified. DAP 117 FLUOROSCOPY TIME: 1.4 minutes. CONTRAST USED: 10 mL SEDATION: Dr. Rossy Cooley was personally responsible for the administration of moderate sedation during the procedure performed, including the use of an independent trained observer who had no other duties during the procedure. The drugs utilized were IV fentanyl and versed (see nursing log for details). The total time of supervision by the attending physician was approximately 45 minutes. FINDINGS: Severe dilated right renal collecting system involving the calyces/renal pelvis/ureter . Ne w 8.5 Ecuadorean nephrostomy tube via a posterior mid pole calyceal access, with loop coiled within the r enal pelvis. IMPRESSION: Severe right hydronephrosis, status post successful placement of 8.5 Ecuadorean right percutaneous nephro stomy catheter. PLAN: Routine catheter care with exchanges in 3 months. Bed rest for 3 hours.
[2024-05-27 15:44] VITALS: BP 136/71; PULSE 71; RESP 12; O2SAT 98
[2024-05-27 15:50] VITALS: BP 124/64; PULSE 74; RESP 14; O2SAT 99
[2024-05-27 16:12] VITALS: BP 125/68; TEMP 98.1
[2024-05-27 16:34] VITALS: PULSE 78; RESP 12; O2SAT 99
[2024-05-27] MEDS: HYDROcodone-ACET 10/325MG TAB PO ONE (17:37)
== END 2024-05-27 17:43 | disposition home or self-care (01) ==
LOC: ER 09:36
DX: I12.9 Hypertensive chronic kidney disease with stage 1 through stage 4 chronic kidney disease, or unspecified chronic kidney disease (principal); N18.9 Chronic kidney disease, unspecified; D64.9 Anemia, unspecified; N39.0 Urinary tract infection, site not specified; Z79.899 Other long term (current) drug therapy; Z85.46 Personal history of malignant neoplasm of prostate
CPT/HCPCS: 36415; 50432; 76942; 80048; 81001; 82947; 85025; 85610; 99285; C1729; C1769; C1894; 74425; 82962; 99152; J2250

== ENCOUNTER → 2024-06-01 | Outpatient (CLI) | payer OTHER ==
[~2024-06-01] MED LIST changes: +CEPH250C PO
[2024-06-01 13:14] LABS: Anion Gap 14 (5-15); Calcium 10.3 mg/dL (8.7-10.4); Carbon Dioxide 23 mmol/L (20-31)
[2024-06-01 13:19] LABS: BUN/Creatinine Ratio 20.1 (10.0-20.0); Chloride 95 mmol/L (98-107); Glucose 110 mg/dL (74-106); Potassium 2.9 mmol/L (3.5-5.1); Sodium 132 mmol/L (136-145)
[2024-06-01 13:21] LABS: Blood Urea Nitrogen 108 mg/dL (9-23)
== END | disposition home or self-care (01) ==
LOC: LAB 12:39
PROVIDERS: ATTEND Internal Medicine Nephrology
DX: E11.22 Type 2 diabetes mellitus with diabetic chronic kidney disease (principal); N18.30 Chronic kidney disease, stage 3 unspecified; E11.21 Type 2 diabetes mellitus with diabetic nephropathy; E21.3 Hyperparathyroidism, unspecified; E55.9 Vitamin D deficiency, unspecified; M10.9 Gout, unspecified; N39.0 Urinary tract infection, site not specified; R80.9 Proteinuria, unspecified; D63.1 Anemia in chronic kidney disease
CPT/HCPCS: 36415; 80048

== ENCOUNTER → 2024-06-01 | Outpatient (CLI) | payer OTHER ==
--- NOTE | 2024-06-01 20:27 | DVH ---
Procedure: NM BONE WHOLE BODY Exam Date: 06/01/2024 11:58 AM Reason for study/Clinical History: MALIGNANT NEOPLASM OF PROSTATE Comparison Study: Bone scan dated 01/05/2023 Nuclear Medicine Whole Body Bone Scan Technique: Following the intravenous administration of 27.2 millicuries of technetium 99m labeled MDP, whole bod y images in the anterior and posterior projections were obtained 3 hours following the administration of radiopharmaceutical. Additional delayed camera views of the pelvis were also obtained. Findings: There is slight heterogeneity of the bones with significant interval regression of the previously see n tracer activity in the ribs, vertebrae and pelvis. No suspicious activity is noted in the current e xam. Mild symmetric linear tracer activity in the bilateral lateral tibial cortices in the proximal mid tibia possibly related to renal osteodystrophy or stress reaction. Recommend clinical correlation . The expected mild activity is noted overlying both kidneys and the bladder without evidence of obstru ction. Impression: 1. 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 2. Mild symmetric linear tracer activity in the bilateral lateral tibial cortices in the proximal mid tibia possibly related to renal osteodystrophy or stress reaction. Recommend clinical correlation fu rther evaluation by radiograph.
== END | disposition home or self-care (01) ==
LOC: XYW 08:30
PROVIDERS: ATTEND Nurse Practitioner Family
DX: C61 Malignant neoplasm of prostate (principal)
CPT/HCPCS: 78306; A9503

== ENCOUNTER 2024-06-04 16:54 | Observation (INO) | payer OTHER ==
[~2024-06-04] VITALS: Ht 172.7 cm; Wt 66.7 kg
[2024-06-04] MEDS ORDERED: ACETAMINOPHEN 325 MG TAB PO PRN (17:45)
[2024-06-04] MEDS ORDERED: HYDROcodone-ACET 5/325MG TAB PO PRN (17:45)
[2024-06-04] MEDS ORDERED: ONDANSETRON HCL 4 MG/2 ML VIAL IV PRN (17:45)
--- NOTE | 2024-06-04 18:20 | DVHINCON2 ---
Date of service: Jun 04, 2024 Referring Physician Urology clinic Reason for Consultation Need for cystoscopy with stent removal History of Present Illness Patient has an indwelling right ureteral stent as well as a right percutaneous nephrostomy tube. He has history of metastatic prostate cancer and is undergoing hormonal therapy. He has an indwelling ureteral stent that was to be changed every six months, however he has a right nephrostomy tube placed instead this will be changed on a quarterly basis. He no longer needs the ureteral stent which is a foreign body that needs to be removed. I offered to remove the stent in the office under local anesthetic today, but he refused and wanted to have anesthesia Past Medical History Hypertension Prostate cancer metastatic Past Surgical History Prostate biopsy Cystoscopy with stent placement Family History: Patient reports no known family medical history. Allergies: Coded Allergies: NO KNOWN ALLERGIES (Unverified , 12/17/22) Home Meds Active Scripts Cephalexin (KEFLEX CAPSULE) 250 Mg Cp, 250 MG PO QID for 5 Days, #20 BOTTLE Prov:LOWELL GONZÁLES MD 05/27/24 Reported Medications Relugolix (Orgovyx) 120 Mg Tab, 50 MG PO DAILY, TAB 07/08/23 Losartan Potassium (Losartan Potassium) 25 Mg Tab, 25 MG PO BID, TAB 12/31/22 Current Medications Current Medications Medications (Trade) Dose Ordered Sig/Hema Route PRN Reason Start Time Stop Time Status Last Admin Sodium Chloride 1,000 ml @ 100 mls/hr Q10H IV 06/04/24 17:45 Acetaminophen (Tylenol Tablet) 650 mg Q6HP PRN PO PAIN SCALE 1-3 OR TEMP>100.4 06/04/24 17:45 Acetaminophen/ Hydrocodone Bitart ([place] 5/325MG Tab) 1 tab Q4HP PRN PO MODERATE PAIN (4-6 PAIN SCALE) 06/04/24 17:45 Hydromorphone HCl (Dilaudid Injection) 0.5 mg Q4HP PRN IV SEVERE PAIN (7-10 PAIN SCALE) 06/04/24 17:45 Ondansetron HCl (Zofran) 4 mg Q4HP PRN IV NAUSEA / VOMITING 06/04/24 17:45 Ceftriaxone Sodium 50 ml @ 100 mls/hr DAILY@09 IV 06/05/24 09:00 Pantoprazole Sodium (Protonix) 40 mg DAILY IV 06/05/24 10:00 UNV Review of Systems Denies any flank pain Physical Exam No acute distress Assessment Indwelling right ureteral stent, foreign body Metastatic prostate cancer Plan/Recommendation Cystoscopy with stent removal to be done under anesthesia. He may be discharged postoperatively if stable Plan discussed with: Patient, Other STACEY ARCOS MD Jun 04, 2024 18:20
[2024-06-04 18:30] VITALS: BP 138/82; PULSE 80; RESP 18; TEMP 98; O2SAT 98
--- NOTE | 2024-06-04 18:32 | DVHHPRES ---
History of Present Illness Resident Creating Document: SHE SOLOMON RESIDENT History of Present Illness Patient is 79-year-old male with past medical history of hypertension, stage IV prostate cancer, right hydronephrosis who came to the hospital after patient came to see Dr. Cornelius for urology evaluation. As per patient, patient underwent multiple ureteral stent exchange for hydronephrosis. Recently he underwent right nephrostomy tube as well. He was diagnosed with prostate cancer which is stage IV about a year ago and underwent radiation, but the complication of prostate cancer patient had hydronephrosis and requiring multiple ureter stent exchange. Patient complaining of mild discomfort over area of insertion of right nephrostomy tube, however denied any other symptoms including fever, chills, abdominal pain, chest pain, shortness of breath, any other symptom. Past medical history: Hypertension, prostate cancer stage IV status post radiation, right hydronephrosis Surgical history: Right-sided nephrostomy, multiple urethral exchange Allergy: None Social history: Lives with family, nonsmoker, no drug use. Medication: Review of Systems Constitutional: No: Fever, Chills, Sweats, Weakness, Malaise, Other Eyes: No: Pain, Vision change, Conjunctivae inflammation, Eyelid inflammation, Other, Redness ENT: No: Ear pain, Ear discharge, Nose pain, Nose discharge, Nose congestion, Mouth pain, Mouth swelling, Throat pain, Throat swelling, Other Respiratory: No: Cough, Dry, Shortness of breath, SOB with excertion, Wheezing, Hemoptysis, Pleuritic Pain, Sputum, Wheezing, Other Cardiovascular: No: Chest Pain, Palpitations, Orthopnea, Paroxysmal Noc. Dyspnea, Edema, Lt Headedness, Other Gastrointestinal: No: Nausea, Vomiting, Abdominal Pain, Diarrhea, Constipation, Melena, Hematochezia, Other Genitourinary: No Dysuria, No Frequency, No Incontinence, No Hematuria, No Retention, No Other Musculoskeletal: No: other, neck pain, shoulder pain, arm pain, back pain, hand pain, leg pain, foot pain Skin: No: Rash, Lesions, Jaundice, Bruising, Other Neurological: No: Weakness, Numbness, Incoordination, Change in speech, Confusion, Seizures, Other Allergies: Coded Allergies: NO KNOWN ALLERGIES (Unverified , 12/17/22) Medications Current Medications Medications Dose Ordered Sig/Hema Route Start Time Stop Time Status Last Admin Dose Admin Sodium Chloride 1,000 ml @ 100 mls/hr Q10H IV 06/04/24 17:45 Acetaminophen 650 mg Q6HP PRN PO 06/04/24 17:45 Acetaminophen/ Hydrocodone Bitart 1 tab Q4HP PRN PO 06/04/24 17:45 Hydromorphone HCl 0.5 mg Q4HP PRN IV 06/04/24 17:45 Ondansetron HCl 4 mg Q4HP PRN IV 06/04/24 17:45 Ceftriaxone Sodium 50 ml @ 100 mls/hr DAILY@09 IV 06/05/24 09:00 Exam General Appearance: Alert, Oriented X3 HEENT: PERRLA, EOMI Respiratory: Clear to auscultation, Normal air movement Cardiovascular: Normal S1, Normal S2 Abdominal: Normal bowel sounds, Soft, No tenderness, Other (Presence of right nephrostomy tube) Extremities: No clubbing, No cyanosis Skin: No rashes, No breakdown Neuro: Strength at 5/5 X4 ext, Normal tone, Sensation intact, Cranial nerves 3- 12 NL Assessment/Plan Assessment/Plan Right hydronephrosis Right ureteral obstruction status post right nephrostomy Stage 4 Prostate cancer Hypertension CKD stage 4 Acute on chronic anemia Plan/recommendation -urology consultation for stent exchange, continue with IV fluid -continue IV ceftriaxone -order urinalysis, CBC, CMP, PT INR, EKG, chest x-ray. -NPO -pain management with opioid as needed -PUD prophylaxis with Protonix -DVT prophylaxis with SCD Goals of care discussed for greater than 24 meds, full code status. Plan discussed with Dr. Sebastian Plan discussed with: Patient, Other (RN) My Orders Orders - SHE SOLOMON RESIDENT Procedure Category Date Status Time Pantoprazole PHA 06/04/24 Transmitted (Protonix) 18:15 Pantoprazole PHA 06/05/24 Transmitted (Protonix) 10:00 Date of Service: Jun 04, 2024 Billing Provider: SAMPSON SEBASTIAN MD Common Visit Codes: 41475-IEFPPGR INP/OBS CARE (HIGH) Secondary Visit Codes: 25120-SKNTBXMV CARE PLAN 30 MINUTES SHE SOLOMON Jun 04, 2024 18:32 SAMPSON SEBASTIAN MD Jun 04, 2024 19:31
--- NOTE | 2024-06-04 18:42 | ECG ---
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
[2024-06-04 18:48] LABS: Basophils # (auto) 0 10 ^3/uL (0-0.2); Basophils % (auto) 0.6 % (0.0-2.0); Eosinophils # (auto) 0.1 10 ^3/uL (0-0.8); Eosinophils % (auto) 1.6 % (0.0-7.0); Hematocrit 23.4 % (41.0-53.0); Hemoglobin 8.4 g/dL (13.5-17.5); Lymphocytes # (auto) 0.7 10 ^3/uL (0.4-5.4); Lymphocytes % (auto) 8.9 % (10.0-50.0); Mean Corpuscular Hemoglobin 31.3 pg (28.0-32.0); Mean Corpuscular Volume 87.1 fL (80.0-100.0); Monocytes # (auto) 0.5 10 ^3/uL (0-1.3); Monocytes % (auto) 6.8 % (0.0-12.0); Neutrophils # (auto) 6.2 10 ^3/uL (1.6-8.6); Neutrophils % (auto) 82.1 % (37.0-80.0); Platelet Count (auto) 319 10^3/uL (140-450); Red Blood Cells 2.69 10^6/uL (4.5-5.90); White Blood Cell 7.5 10^3/uL (4.4-10.8)
[2024-06-04 18:50] VITALS: RESP 18
[2024-06-04 18:58] LABS: Carbon Dioxide 21 mmol/L (20-31)
[2024-06-04] MEDS: PANTOPRAZOLE 40 MG/10 ML VIAL INJ IV ONE (19:00)
[2024-06-04] MEDS: cefTRIAXone 2GM/50ML D5W 50 ML IV ONE (19:00)
[2024-06-04] MEDS: SODIUM CHLORIDE 0.9% 1,000 ML IV SCH (19:00)
[2024-06-04 19:04] LABS: BUN/Creatinine Ratio 24.1 (10.0-20.0); Glucose 102 mg/dL (74-106)
[2024-06-04 19:10] LABS: INR 1.03 (0.9-1.15); Partial Thromboplastin Time 30.4 SEC (24.5-34.5); Prothrombin Time 10.9 sec (9.3-11.8)
[2024-06-04 19:39] LABS: Calcium 10.6 mg/dL (8.7-10.4); Chloride 97 mmol/L (98-107); Potassium 3.3 mmol/L (3.5-5.1)
[2024-06-04 19:48] LABS: Blood Urea Nitrogen 115 mg/dL (9-23)
[2024-06-04 19:55] LABS: Anion Gap 16 (5-15); Sodium 134 mmol/L (136-145)
[2024-06-04 20:00] VITALS: PULSE 77; RESP 18; O2SAT 99
[2024-06-04] MEDS ORDERED: HYDROmorphone HCL 2 MG/ML VL/or syr IV PRN (20:15)
--- NOTE | 2024-06-04 20:15 | DVHNC2 ---
Procedure - OPERATIVE REPORT Pre-op. Diagnosis: Ureteral Stent (Foreign Body) - RIGHT Right nephrostomy tube, in situ Post-op. Diagnosis: Same as pre-op diagnosis Operation: Cystoscopy, Ureteral stent removal - RIGHT Anesthesia: IV sedation Indications: The indications, risks, complications, alternatives and benefits of cystoscopy, with ureteral stent removal were described to patient. All questions were encouraged and answered. Patient was aware of risks/complications including but not limited to infection, bleeding, persistent pain, possible ureteral injury requiring additional surgical management.Benefits of stent removal when it is no longer needed were explained. Informed consent was obtained. Details of Procedure: After obtaining the consent, patient was taken to OR suite and underwent general anesthesia. With the patient positioned in the dorsal lithotomy, the area of the genitalia was prepped and draped in usual sterile fashion. Next, a 22 F Cystoscope was used to access the urethra and bladder. No tumors or stones were seen in the bladder. The right ureteral stent was identified and was grasped using alligator flexible graspers and removed in one piece without difficulty. The bladder was emptied and the cystoscope was removed. Patient tolerated the procedure well and general anesthesia was reversed. Patient was taken to recovery in stable condition. Specimens: Right Ureteral Stent Complications: None Findings: BUN/Cr elevated Notes: Patient has metastatic prostate cancer and chronic right ureteral stent exchange q 6 months. However, he now has right PNT instead. STACEY ARCOS MD Jun 04, 2024 20:15
[2024-06-04 20:23] LABS: Urine Bacteria None Seen /hpf (None Seen)
[2024-06-04 20:57] VITALS: PULSE 83; RESP 11; O2SAT 100
[2024-06-04 21:00] VITALS: BP 123/68; PULSE 77; RESP 18; TEMP 97.2; O2SAT 99
[2024-06-04 21:15] VITALS: PULSE 72; RESP 11; O2SAT 100
[2024-06-04 21:33] LABS: Urine Amorphous Crystal FEW /hpf (None Seen); Urine Blood TRACE /uL (Negative); Urine Clarity Clear (Clear); Urine Color Colorless (Yellow); Urine Protein, UAD TRACE (Negative); Urine Specific Gravity 1.009 (1.001-1.035); Urine Squamous Epithelial Cell None Seen /hpf (<5); Urine Urobilinogen Normal (Negative); Urine WBC 2 /HPF (0-3); Urine pH 5.5 (5.0-9.0)
[2024-06-04] MEDS: HYDROmorphone HCL 2 MG/ML VL/or syr IV PRN (23:53)
[2024-06-05 01:00] VITALS: BP 98/54; PULSE 67; RESP 17; TEMP 97.3; O2SAT 96
[2024-06-05 05:00] VITALS: BP 115/64; PULSE 70; RESP 18; TEMP 97.3; O2SAT 99
[2024-06-05 08:40] VITALS: BP 118/58; PULSE 67; RESP 16; TEMP 97.6; O2SAT 97
[2024-06-05] MEDS: POTASSIUM CHL 20 Meq TABLET PO ONE ×2 (09:02→11:23)
[2024-06-05] MEDS: cefTRIAXone 1GM/50ML D5W 50 ML IV SCH (09:02)
[2024-06-05] MEDS: PANTOPRAZOLE 40 MG/10 ML VIAL INJ IV SCH (09:02)
--- NOTE | 2024-06-05 09:33 | DVH ---
INDICATION: PRE OP, pain TECHNIQUE: Frontal view of the chest. COMPARISON: None FINDINGS: . The heart and mediastinal contours are grossly unremarkable. There is no evidence of pleural disea se. The lungs are clear. The bony structures of the chest are intact without fracture. IMPRESSION: 1. No evidence of acute disease.
[2024-06-05 10:08] LABS: Basophils # (auto) 0 10 ^3/uL (0-0.2); Basophils % (auto) 0.4 % (0.0-2.0); Eosinophils # (auto) 0.1 10 ^3/uL (0-0.8); Hematocrit 22.6 % (41.0-53.0); Hemoglobin 7.7 g/dL (13.5-17.5); Lymphocytes # (auto) 0.6 10 ^3/uL (0.4-5.4); Lymphocytes % (auto) 7.2 % (10.0-50.0); Mean Corpuscular Hemoglobin 30.3 pg (28.0-32.0); Mean Corpuscular Hgb Conc. 34.1 g/dL (32.0-36.0); Mean Corpuscular Volume 88.8 fL (80.0-100.0); Monocytes # (auto) 0.5 10 ^3/uL (0-1.3); Monocytes % (auto) 6.9 % (0.0-12.0); Neutrophils # (auto) 6.5 10 ^3/uL (1.6-8.6); Neutrophils % (auto) 84.5 % (37.0-80.0); Platelet Count (auto) 314 10^3/uL (140-450); Red Blood Cells 2.54 10^6/uL (4.5-5.90); Red Cell Distribution Width 11.9 % (11.8-14.3); White Blood Cell 7.7 10^3/uL (4.4-10.8)
[2024-06-05 10:16] LABS: Chloride 100 mmol/L (98-107)
[2024-06-05 10:17] LABS: Anion Gap 13 (5-15); Calcium 10.2 mg/dL (8.7-10.4); Carbon Dioxide 22 mmol/L (20-31); Potassium 3.2 mmol/L (3.5-5.1); Sodium 135 mmol/L (136-145)
[2024-06-05 10:22] LABS: BUN/Creatinine Ratio 23.5 (10.0-20.0)
[2024-06-05 10:25] LABS: Glucose 150 mg/dL (74-106)
[2024-06-05 10:26] LABS: Blood Urea Nitrogen 107 mg/dL (9-23)
[2024-06-05] MEDS ORDERED: CEPH250C PO (10:51)
[2024-06-05 11:52] VITALS: TEMP 36.4
--- NOTE | 2024-06-05 13:35 | DVHDSRES ---
Discharge Summary Date of Admission Resident Creating Document: SHE SOLOMON RESIDENT Jun 04, 2024 at 16:54 Date of Discharge: Jun 05, 2024 Admitting Diagnosis Abdominal pain Labs/Diagnostic Data: Laboratory Results Test 06/05/24 09:55 06/04/24 19:00 06/04/24 18:31 White Blood Count 7.7 10^3/uL (4.4-10.8) Red Blood Count 2.54 10^6/uL (4.5-5.90) Hemoglobin 7.7 g/dL (13.5-17.5) Hematocrit 22.6 % (41.0-53.0) Mean Corpuscular Volume 88.8 fL (80.0-100.0) Mean Corpuscular Hemoglobin 30.3 pg (28.0-32.0) Mean Corpuscular Hemoglobin Concent 34.1 g/dL (32.0-36.0) Red Cell Distribution Width 11.9 % (11.8-14.3) Platelet Count 314 10^3/uL (140-450) Mean Platelet Volume 7.0 fL (6.9-10.8) Neutrophils (%) (Auto) 84.5 % (37.0-80.0) Lymphocytes (%) (Auto) 7.2 % (10.0-50.0) Monocytes (%) (Auto) 6.9 % (0.0-12.0) Eosinophils (%) (Auto) 1.0 % (0.0-7.0) Basophils (%) (Auto) 0.4 % (0.0-2.0) Neutrophils # (Auto) 6.5 10 ^3/uL (1.6-8.6) Lymphocytes # (Auto) 0.6 10 ^3/uL (0.4-5.4) Monocytes # (Auto) 0.5 10 ^3/uL (0-1.3) Eosinophils # (Auto) 0.1 10 ^3/uL (0-0.8) Basophils # (Auto) 0 10 ^3/uL (0-0.2) Nucleated Red Blood Cells 0.0 % Sodium Level 135 mmol/L (136-145) Potassium Level 3.2 mmol/L (3.5-5.1) Chloride Level 100 mmol/L (98-107) Carbon Dioxide Level 22 mmol/L (20-31) Anion Gap 13 (5-15) Blood Urea Nitrogen 107 mg/dL (9-23) Creatinine 4.56 mg/dL (0.700-1.30) Glomerular Filtration Rate Calc 13 mL/min (>90) BUN/Creatinine Ratio 23.5 (10.0-20.0) Serum Glucose 150 mg/dL (74-106) Calcium Level 10.2 mg/dL (8.7-10.4) Magnesium Level 1.8 mg/dL (1.6-2.6) Urine Color Colorless (Yellow) Urine Clarity Clear (Clear) Urine pH 5.5 (5.0-9.0) Urine Specific [place] 1.009 (1.001-1.035) Urine Protein Trace (Negative) Urine Ketones Negative (Negative) Urine Blood Trace /uL (Negative) Urine Nitrite Negative (Negative) Urine Bilirubin Negative (Negative) Urine Urobilinogen Normal mg/dL (Negative) Urine Leukocyte Esterase Trace /uL (Negative) Urine RBC 1 /hpf (0 - 3) Urine Microscopic WBC 2 /HPF (0-3) Urine Squamous Epithelial Cells None seen /hpf (<5) Urine Amorphous Crystals Few /hpf (None Seen) Urine Bacteria None seen /hpf (None Seen) Urine Glucose Normal mg/dL (Normal) Prothrombin Time 10.9 sec (9.3-11.8) Prothrombin Time INR 1.03 (0.9-1.15) Activated Partial Thromboplast Time 30.4 SEC (24.5-34.5) Hemoglobin A1c 5.5 % A1C (<5.7) Other Laboratory Tests 06/05/24 09:55 Brief Hx & Hospital Course: History of Present Illness Patient is 79-year-old male with past medical history of hypertension, stage IV prostate cancer, right hydronephrosis who came to the hospital after patient came to see Dr. Cornelius for urology evaluation. As per patient, patient underwent multiple ureteral stent exchange for hydronephrosis. Recently he underwent right nephrostomy tube as well. He was diagnosed with prostate cancer which is stage IV about a year ago and underwent radiation, but the complication of prostate cancer patient had hydronephrosis and requiring multiple ureter stent exchange. Patient complaining of mild discomfort over area of insertion of right nephrostomy tube, however denied any other symptoms including fever, chills, abdominal pain, chest pain, shortness of breath, any other symptom. Hospital course: Patient underwent right ureteral stent removal by urologist Dr. Cornelius, patient was given IV antibiotic ceftriaxone, patient underwent procedure well without any complication. Patient also found to have CKD stage 4 with GFR 12 with elevated BUN/creatinine, patient is following with Nephrology for the same, followed with real estate office manager few days ago, family aware of kidney function, as appointment within three days as well with Nephrology. CKD stage 4 is likely related to prostate cancer likely obstructive, and they will follow up with Nephrology. Family and patient agreed with the discharge plan, patient discharged home. Condition at Discharge: Stable Final Diagnosis/Problems List Indwelling right ureteral stent foreign body removal CKD stage 4 Right hydronephrosis Right ureteral obstruction status post right nephrostomy Stage 4 Prostate cancer Hypertension Acute on chronic anemia Discharge Disposition: Home Discharge Instruct/Medications Diet: Renal Activity: No Restrictions, As Tolerated Follow Up/Referral: -follow up with PCP, nephrology and urology in 1 week Medications: see prescription Discharge Statement: "Patient was advised to return to the ER or call 911 if any headaches, dizziness, shortness of breath, chest pain, abdominal pain, bleeding, fevers, or worsening of medical condition. Patient was counseled about treatment plan, medications, possible side effects, patientverbalized understanding. All questions were answered to the best of my ability. This discharge took greater then 30 minutes in planning, reviewing documentation, counseling the patient, and discussing with other team members." ASSESSMENT ASSESSMENT Assessment Indwelling right ureteral stent foreign body removal CKD stage 4 Date of Service: Jun 05, 2024 Billing Provider: SAMPSON SWAIN MD Common Visit Codes: 49160-HGX/OBS DISCH DAY >30min SHE SOLOMON RESIDENT Jun 05, 2024 13:35 SAMPSON SWAIN MD Jun 05, 2024 14:20
== END 2024-06-05 12:40 | disposition home or self-care (01) ==
LOC: INTOOBSV 16:54 → CENTRAL 16:54
PROVIDERS: ADMIT Internal Medicine; ATTEND Internal Medicine
DX: N13.30 Unspecified hydronephrosis (principal); N36.8 Other specified disorders of urethra; C61 Malignant neoplasm of prostate; I12.9 Hypertensive chronic kidney disease with stage 1 through stage 4 chronic kidney disease, or unspecified chronic kidney disease; N18.4 Chronic kidney disease, stage 4 (severe); D63.1 Anemia in chronic kidney disease; Z79.899 Other long term (current) drug therapy; Z98.890 Other specified postprocedural states
CPT/HCPCS: 36415; 52310; 71045; 80048; 81001; 83036; 83735; 85025; 85610; 85730; 93005; 96365; 96366; 96375; 96376; A4315; A4344; C1769; G0378; J0696; J1171; J2250; J2470; J7030; J2405; J2704

== ENCOUNTER → 2024-06-17 | Outpatient (CLI) | payer OTHER ==
[2024-06-17 11:11] LABS: Alanine Aminotransferase 46 U/L (7-40); Albumin 4.2 g/dL (3.2-4.8); Alkaline Phosphatase 75 U/L (46-116); Anion Gap 10 (5-15); Aspartate Aminotransferase 22 U/L (13-40); BUN/Creatinine Ratio 20.9 (10.0-20.0); Bilirubin, Total 0.5 mg/dL (0.2-1.0); Blood Urea Nitrogen 71 mg/dL (9-23); Calcium 10.5 mg/dL (8.7-10.4); Carbon Dioxide 20 mmol/L (20-31); Chloride 108 mmol/L (98-107); Glucose 97 mg/dL (74-106); Potassium 4.4 mmol/L (3.5-5.1); Sodium 138 mmol/L (136-145); Total Protein 7.5 g/dL (5.7-8.2)
== END | disposition home or self-care (01) ==
LOC: LAB 10:17
PROVIDERS: ATTEND Internal Medicine Nephrology
DX: E11.22 Type 2 diabetes mellitus with diabetic chronic kidney disease (principal); N18.30 Chronic kidney disease, stage 3 unspecified; E11.21 Type 2 diabetes mellitus with diabetic nephropathy; E21.3 Hyperparathyroidism, unspecified; E55.9 Vitamin D deficiency, unspecified; M10.9 Gout, unspecified; N39.0 Urinary tract infection, site not specified; R80.9 Proteinuria, unspecified; D63.1 Anemia in chronic kidney disease
CPT/HCPCS: 36415; 80053

== ENCOUNTER 2024-06-29 12:03 | Emergency (ER) | payer OTHER ==
[~2024-06-29] VITALS: Ht 172.7 cm; Wt 66.6 kg
--- NOTE | 2024-06-29 12:43 | ED.PDOC ---
General HPI Comments 79 year old male presents to the ED with a chief complaint of LT flank pain onset 3 days. Patient began experiencing dysuria 3 days ago, was seen at urgent care today and was sent to ED. Patient states he is also experiencing LT flank pain. PMHx kidney cancer, HTN. Denies chest pain, shortness of breath, dizziness, fever, chills, nausea, vomiting, diarrhea. No other symptoms or modifying factors present at this time. Time Seen by MD: 12:25 Reviewed notes: Medications, Allergies Allergies: Coded Allergies: NO KNOWN ALLERGIES (Unverified , 12/17/22) Home Meds Active Scripts Cephalexin (KEFLEX CAPSULE) 250 Mg Cp, 250 MG PO BID for 4 Days, #8 CAP Prov:SHE SOLOMON RESIDENT 06/05/24 Reported Medications Relugolix (Orgovyx) 120 Mg Tab, 50 MG PO DAILY, TAB 07/08/23 Losartan Potassium (Losartan Potassium) 25 Mg Tab, 25 MG PO BID, TAB 12/31/22 Information Source: Patient, Relative (GrandChild) Mode of Arrival: Ambulatory Severity: Moderate Timing: Days Duration: Since onset Prehospital treatment: None Onset: Spontaneous Symptoms: Dysuria History of: UTI Location: (L)Flank associated signs and symptoms: Flank Pain, Dysuria Past Medical History PAST MEDICAL HISTORY: Cancer, HTN Surgical History: Denies all surgeries Family History Family History: Reviewed,noncontributory to illness, Unknown Social History Smoker: Non-Smoker Alcohol: Denies ETOH Use Drugs: Denies Drug Use Lives In: Home Constitutional: denies: chills, diaphoresis, fatigue, fever, malaise, sweats, weakness, others EENTM: denies: blurred vision, double vision, ear bleeding, ear discharge, ear drainage, ear pain, ear ringing, eye pain, eye redness, hearing loss, mouth pain, mouth swelling, nasal discharge, nose bleeding, nose congestion, nose pain, photophobia, tearing, throat pain, throat swelling, voice changes, others Respiratory: denies: cough, hemoptysis, orthopnea, SOB at rest, shortness of breath, SOB with excertion, stridor, wheezing, others Cardiovascular: denies: chest pain, dizzy spells, diaphoresis, Dyspnea on exertion, edema, irregular heart beat, left arm pain, lightheadedness, palpitations, PND, syncope, others Gastrointestinal: denies: abdomen distended, abdominal pain, blood streaked bowels, constipated, diarrhea, dysphagia, difficulty swallowing, hematemesis, melena, nausea, poor appetite, poor fluid intake, rectal bleeding, rectal pain, vomiting, others Genitourinary: reports: dysuria, flank pain (LT); denies: burning, frequency, hematuria, incontinence, penile discharge, penile sore, pain, testicle pain, testicle swelling, urgency, others Neurological: denies: dizziness, fainting, headache, left sided numbness, left sided weakness, numbness, paresthesia, pre-existing deficit, right sided numbness, right sided weakness, seizure, speech problems, tingling, tremors, weakness, others Musculoskeletal: denies: back pain, gout, joint pain, joint swelling, muscle pain, muscle stiffness, neck pain, others Integumetry: denies: bruises, change in color, change in hair/nails, dryness, laceration, lesions, lumps, rash, wounds, others Allergic/Immunocompromised: denies: Difficulty Healing, Frequent Infections, Hives, Itching, others Hematologic/Lymphatic: denies: anemia, blood clots, easy bleeding, easy bruising, swollen glands, others Endocrine: denies: excessive hunger, excessive sweating, excessive thirst, excessive urination, flushing, intolerance to cold, intolerance to heat, unexplained weight gain, unexplained weight loss, others Psychiatric: denies: anxiety, bipolar disorder, depression, hopeless, panic disorder, schizophrenia, sleepless, suicidal, others All Other Systems: Reviewed and Negative Physical Exam General Appearance: Moderate Distress, Normal HEENT: Normal ENT Inspection, Pharynx Normal, TMs Normal Neck: Full Range of Motion, Non-Tender, Normal, Normal Inspection Respiratory: Chest Non-Tender, Lungs Clear, No Accessory Muscle Use, No Respiratory Distress, Normal Breath Sounds Cardiovascular: No Edema, No JVD, No Murmur, No Gallop, Normal Peripheral Pulses, Regular Rate/Rhythm Breast Exam: Deferred Gastrointestinal: No Organomegaly, Non Tender, No Pulsatile Mass, Normal Bowel Sounds, Soft Genitalia: Deferred Pelvic: Deferred Rectal: Deferred Extremities: No calf tenderness, Normal capillary refill, Normal inspection, Normal range of motion, Non-tender, No pedal edema Musculoskeletal : Apperance: Normal Neurologic: Alert, electronics specialist II-XII nml as Tested, No Motor Deficits, Normal Affect, Normal Mood, No Sensory Deficits Cerebellar Function: NOT DONE Reflexes: NOT DONE Skin: Dry, Normal Color, Warm Peripheral Pulses: 3+ Radial (R), 3+ Radial (L) Lymphatic: No Adenopathy Was a procedure done? Was a procedure done?: No Differential Diagnosis Kidney stone (Female): Musculoskeletal pain, Urinary obstruction, Urolithiasis X-Ray, Labs, Meds, VS Vital Signs Date Time Temp Pulse Resp B/P (MAP) Pulse Ox O2 Delivery O2 Flow Rate FiO2 06/29/24 13:32 97.7 88 16 107/58 (74) 100 97.7 06/29/24 13:32 Room Air 0 Lab Test 06/29/24 13:10 06/29/24 13:04 Range/Units Urine Color Colorless Yellow Urine Clarity Turbid H Clear Urine pH 5.5 5.0-9.0 Urine Specific [place] 1.010 1.001-1.035 Urine Protein 1+ H Negative Urine Ketones Negative Negative Urine Blood Trace H Negative /uL Urine Nitrite Negative Negative Urine Bilirubin Negative Negative Urine Urobilinogen Normal Negative mg/dL Urine Leukocyte Esterase 3+ Negative /uL Urine RBC 9 0 - 3 /hpf Urine WBC Clumps Present None Seen /hpf Urine Microscopic WBC 558 H 0-3 /HPF Urine Squamous Epithelial Cells None seen <5 /hpf Urine Bacteria Few H None Seen /hpf Urine Glucose Normal Normal mg/dL White Blood Count 12.8 H 4.4-10.8 10^3/uL Red Blood Count 2.40 L 4.5-5.90 10^6/uL Hemoglobin 7.3 L 13.5-17.5 g/dL Hematocrit 21.0 L 41.0-53.0 % Mean Corpuscular Volume 87.6 80.0-100.0 fL Mean Corpuscular Hemoglobin 30.2 28.0-32.0 pg Mean Corpuscular Hemoglobin Concent 34.5 32.0-36.0 g/dL Red Cell Distribution Width 12.9 11.8-14.3 % Platelet Count 482 H 140-450 10^3/uL Mean Platelet Volume 6.8 L 6.9-10.8 fL Neutrophils (%) (Auto) 87.9 H 37.0-80.0 % Lymphocytes (%) (Auto) 4.0 L 10.0-50.0 % Monocytes (%) (Auto) 7.1 0.0-12.0 % Eosinophils (%) (Auto) 0.5 0.0-7.0 % Basophils (%) (Auto) 0.5 0.0-2.0 % Neutrophils # (Auto) 11.2 H 1.6-8.6 10 ^3/uL Lymphocytes # (Auto) 0.5 0.4-5.4 10 ^3/uL Monocytes # (Auto) 0.9 0-1.3 10 ^3/uL Eosinophils # (Auto) 0.1 0-0.8 10 ^3/uL Basophils # (Auto) 0.1 0-0.2 10 ^3/uL Nucleated Red Blood Cells 0.0 % Sodium Level 134 L 136-145 mmol/L Potassium Level 3.8 3.5-5.1 mmol/L Chloride Level 102 98-107 mmol/L Carbon Dioxide Level 19 L 20-31 mmol/L Anion Gap 13 5-15 Blood Urea Nitrogen 94 *H 9-23 mg/dL Creatinine 3.91 H 0.700-1.30 mg/dL Glomerular Filtration Rate Calc 15 >90 mL/min BUN/Creatinine Ratio 24.0 H 10.0-20.0 Serum Glucose 133 H 74-106 mg/dL Calcium Level 10.3 8.7-10.4 mg/dL Patient alert. Came in because of problem urinating. Vitals stable. Answering questions. Moving all extremities. Initially seen at urgent care was sent here. He is not in distress. No sign of sepsis. Reviewed his history. Continue monitoring. BUN creatinine elevated pain He does have kidney cancer. Nephrology consultation as outpatient. Urinalysis shows UTI. Was given Rocephin. Was given prescription of Bactrim DS. Explained to the patient. Was told to follow up with his primary care physician. Was told to come back if there is any problem. Time of 1ST Reevaluation: 12:55 Reevaluation 1ST: Unchanged Patient Education/Counseling: Diagnosis, Treatment, Prognosis Family Education/Counseling: Diagnosis, Treatment, Prognosis Departure 1 Departure Time of Disposition: 13:02 Impression: Primary Impression: UTI (urinary tract infection) Qualified Codes: N30.00 - Acute cystitis without hematuria Additional Impressions: HTN (hypertension) Qualified Codes: I10 - Essential (primary) hypertension Dysuria Disposition: HOME / SELF CARE / HOMELESS Condition: Good e-Prescriptions Sulfamethoxazole W/Trimethopri (Bactrim Ds Tablet) 1 Tab Tb 1 TAB PO BID for 10 Days, #20 TAB Prov: LOWELL GONZÁLES MD 06/29/24 Discharged With: Self Critical Care Note Critical Care Time?: No Stability Stability form required: No Heart Score Heart Score: Heart Score Response (Comments) Value History N/A 0 EKG N/A 0 Age N/A 0 Risk Factors N/A 0 Troponin N/A 0 Total 0 I personally scribed for LOWELL GONZÁLES MD ([email or web address]) on 06/29/24 at 12:42. Electronically submitted by Lana Guzman ([email or web address]). LOWELL GONZÁLES MD June 29, 2024 12:42
[2024-06-29 13:23] LABS: Basophils # (auto) 0.1 10 ^3/uL (0-0.2); Basophils % (auto) 0.5 % (0.0-2.0); Eosinophils # (auto) 0.1 10 ^3/uL (0-0.8); Eosinophils % (auto) 0.5 % (0.0-7.0); Hemoglobin 7.3 g/dL (13.5-17.5); Lymphocytes # (auto) 0.5 10 ^3/uL (0.4-5.4); Mean Corpuscular Hemoglobin 30.2 pg (28.0-32.0); Mean Corpuscular Hgb Conc. 34.5 g/dL (32.0-36.0); Mean Corpuscular Volume 87.6 fL (80.0-100.0); Monocytes # (auto) 0.9 10 ^3/uL (0-1.3); Monocytes % (auto) 7.1 % (0.0-12.0); Neutrophils # (auto) 11.2 10 ^3/uL (1.6-8.6); Neutrophils % (auto) 87.9 % (37.0-80.0); Platelet Count (auto) 482 10^3/uL (140-450); Red Cell Distribution Width 12.9 % (11.8-14.3); White Blood Cell 12.8 10^3/uL (4.4-10.8)
[2024-06-29 13:28] LABS: Chloride 102 mmol/L (98-107); Potassium 3.8 mmol/L (3.5-5.1)
[2024-06-29 13:29] LABS: Anion Gap 13 (5-15); Calcium 10.3 mg/dL (8.7-10.4)
[2024-06-29 13:35] LABS: Carbon Dioxide 19 mmol/L (20-31); Glucose 133 mg/dL (74-106); Sodium 134 mmol/L (136-145)
[2024-06-29 13:37] LABS: Blood Urea Nitrogen 94 mg/dL (9-23)
[2024-06-29 13:50] LABS: Urine Bacteria FEW /hpf (None Seen); Urine Blood TRACE /uL (Negative); Urine Clarity Turbid (Clear); Urine Color Colorless (Yellow); Urine Protein, UAD 1+ (Negative); Urine Squamous Epithelial Cell None Seen /hpf (<5); Urine Urobilinogen Normal (Negative); Urine WBC 558 /HPF (0-3); Urine WBC Clumps PRESENT /hpf (None Seen); Urine pH 5.5 (5.0-9.0)
[2024-06-29] MEDS ORDERED: BACDST PO (15:17)
[2024-06-29 15:56] VITALS: BP 114/61; TEMP 97.9
[2024-06-29 15:57] VITALS: PULSE 88; RESP 16; O2SAT 98
[2024-06-29] MEDS: cefTRIAXone SOD 1,000 MG VL IM ONE (15:59)
[2024-06-29] MEDS: LIDOCAINE 1% HCL (LOCAL ANESTH.) INJ 20ML MDV IJ ONE (16:05)
== END 2024-06-29 16:05 | disposition home or self-care (01) ==
LOC: ER 12:05
DX: N39.0 Urinary tract infection, site not specified (principal); I10 Essential (primary) hypertension; R30.0 Dysuria; Z79.899 Other long term (current) drug therapy
CPT/HCPCS: 36415; 80048; 81001; 85025; 96372; 99283; J0696; J2003

== ENCOUNTER → 2024-07-01 | Outpatient (CLI) | payer OTHER ==
[~2024-07-01] MED LIST changes: +BACDST PO
== END | disposition home or self-care (01) ==
LOC: LAB 09:56
PROVIDERS: ATTEND Urology
DX: N13.30 Unspecified hydronephrosis (principal); Z79.899 Other long term (current) drug therapy
CPT/HCPCS: 84153

== ENCOUNTER 2024-07-28 10:34 | Outpatient (CLI) | payer OTHER ==
[2024-07-28 10:51] LABS: Basophils # (auto) 0 10 ^3/uL (0-0.2); Eosinophils # (auto) 0.1 10 ^3/uL (0-0.8); Hemoglobin 7.4 g/dL (13.5-17.5); Monocytes # (auto) 0.5 10 ^3/uL (0-1.3)
[2024-07-28 10:53] LABS: Basophils % (auto) 0.6 % (0.0-2.0); Eosinophils % (auto) 2.1 % (0.0-7.0); Hematocrit 22.4 % (41.0-53.0); Lymphocytes # (auto) 0.7 10 ^3/uL (0.4-5.4); Lymphocytes % (auto) 11.4 % (10.0-50.0); Mean Corpuscular Hemoglobin 30.2 pg (28.0-32.0); Mean Corpuscular Hgb Conc. 33.1 g/dL (32.0-36.0); Mean Corpuscular Volume 91.3 fL (80.0-100.0); Monocytes % (auto) 8.6 % (0.0-12.0); Neutrophils # (auto) 4.7 10 ^3/uL (1.6-8.6); Neutrophils % (auto) 77.3 % (37.0-80.0); Platelet Count (auto) 280 10^3/uL (140-450); Red Blood Cells 2.45 10^6/uL (4.5-5.90); Red Cell Distribution Width 14.7 % (11.8-14.3); White Blood Cell 6.1 10^3/uL (4.4-10.8)
[2024-07-28 11:02] LABS: Urine Bacteria FEW /hpf (None Seen); Urine Blood 3+ /uL (Negative); Urine Budding Yeast FEW /hpf (None Seen); Urine Clarity Ex.Turbid (Clear); Urine Color Colorless (Yellow); Urine Protein, UAD 2+ (Negative); Urine Specific Gravity 1.011 (1.001-1.035); Urine Squamous Epithelial Cell None Seen /hpf (<5); Urine Urobilinogen Normal (Negative); Urine WBC 1013 /HPF (0-3); Urine WBC Clumps PRESENT /hpf (None Seen); Urine pH 5.5 (5.0-9.0)
[2024-07-28 11:31] LABS: Alanine Aminotransferase 14 U/L (7-40); Albumin 4.5 g/dL (3.2-4.8); Alkaline Phosphatase 83 U/L (46-116); Anion Gap 12 (5-15); Aspartate Aminotransferase 17 U/L (13-40); BUN/Creatinine Ratio 17.7 (10.0-20.0); Bilirubin, Total 0.4 mg/dL (0.2-1.0); Carbon Dioxide 21 mmol/L (20-31); Chloride 107 mmol/L (98-107); Glucose 94 mg/dL (74-106); Potassium 4.1 mmol/L (3.5-5.1); Sodium 140 mmol/L (136-145); Total Protein 7.9 g/dL (5.7-8.2)
[2024-07-28 11:37] LABS: Blood Urea Nitrogen 58 mg/dL (9-23); Calcium 10.5 mg/dL (8.7-10.4)
== END 2024-07-28 17:00 | disposition home or self-care (01) ==
LOC: LAB 10:34
PROVIDERS: ATTEND Internal Medicine Nephrology
DX: E11.22 Type 2 diabetes mellitus with diabetic chronic kidney disease (principal); E11.21 Type 2 diabetes mellitus with diabetic nephropathy; N18.30 Chronic kidney disease, stage 3 unspecified; E21.3 Hyperparathyroidism, unspecified; E55.9 Vitamin D deficiency, unspecified; D63.1 Anemia in chronic kidney disease; N39.0 Urinary tract infection, site not specified; R80.9 Proteinuria, unspecified; M10.9 Gout, unspecified
CPT/HCPCS: 36415; 80053; 81001; 85025

== ENCOUNTER 2024-08-11 15:31 | Outpatient (CLI) | payer OTHER ==
[2024-08-11 16:21] LABS: Urine Bacteria MOD /hpf (None Seen); Urine Blood 3+ /uL (Negative); Urine Clarity Ex.Turbid (Clear); Urine Color Light-Brown (Yellow); Urine Protein, UAD 1+ (Negative); Urine Specific Gravity 1.009 (1.001-1.035); Urine Squamous Epithelial Cell None Seen /hpf (<5); Urine Urobilinogen Normal (Negative); Urine WBC 3325 /HPF (0-3); Urine WBC Clumps PRESENT /hpf (None Seen); Urine pH 5.5 (5.0-9.0)
== END 2024-08-11 17:00 | disposition home or self-care (01) ==
LOC: LAB 15:31
PROVIDERS: ATTEND Urology
DX: C61 Malignant neoplasm of prostate (principal); Z79.899 Other long term (current) drug therapy
CPT/HCPCS: 81001; 84153; 87086; 87088; 87186

== ENCOUNTER 2024-09-08 10:19 | Outpatient (CLI) | payer OTHER | END 2024-09-08 17:00 | disposition home or self-care (01) | LOC: LAB 10:19 | PROVIDERS: ATTEND Radiology Radiation Oncology | DX: C61 Malignant neoplasm of prostate (principal) | CPT/HCPCS: 84153 ==

== ENCOUNTER 2024-09-16 09:34 | Outpatient (CLI) | payer OTHER ==
[2024-09-16 10:04] LABS: Hematocrit 23.3 % (41.0-53.0); Mean Corpuscular Hemoglobin 33.5 pg (28.0-32.0)
[2024-09-16 10:07] LABS: Hemoglobin 8.1 g/dL (13.5-17.5); Mean Corpuscular Volume 96.3 fL (80.0-100.0); Nucleated Red Blood Cells % 0.1 %
[2024-09-16 10:08] LABS: Anion Gap 11 (5-15); Carbon Dioxide 21 mmol/L (20-31); Chloride 106 mmol/L (98-107); Potassium 4.7 mmol/L (3.5-5.1); Sodium 138 mmol/L (136-145)
[2024-09-16 10:14] LABS: BUN/Creatinine Ratio 18.1 (10.0-20.0); Glucose 92 mg/dL (74-106)
[2024-09-16 10:15] LABS: Blood Urea Nitrogen 54 mg/dL (9-23); Calcium 10.8 mg/dL (8.7-10.4)
[2024-09-16 11:44] LABS: INR 1.03 (0.9-1.15); Partial Thromboplastin Time 30.6 SEC (24.5-34.5); Prothrombin Time 10.9 sec (9.3-11.8)
[2024-09-16] MEDS ORDERED: FERR325T24 PO (15:05)
[2024-09-16] MEDS ORDERED: POTA-180 PO (15:05)
[2024-09-16] MEDS ORDERED: FURO1TAB31 PO (15:05)
== END 2024-09-16 17:00 | disposition home or self-care (01) ==
LOC: LAB 09:34
PROVIDERS: ATTEND Urology
DX: Z93.6 Other artificial openings of urinary tract status (principal)
CPT/HCPCS: 36415; 80048; 85025; 85610; 85730

== ENCOUNTER 2024-09-18 08:57 | Day surgery (SDC) | payer OTHER ==
[~2024-09-18] VITALS: Ht 172.7 cm; Wt 65.3 kg
[~2024-09-18 08:57] MED LIST changes: -BACDST PO; -CEPH250C PO; +FERR325T24 PO; +FURO1TAB31 PO; -LOSA-533 PO; +POTA-180 PO
[2024-09-18] MEDS: MIDAZOLAM HCL 2MG/2ML 2ml VIAL (1mg/ml) ONE (10:05)
[2024-09-18] MEDS: fentaNYL CITRATE 100 MCG/2 ML VL ONE (10:05)
[2024-09-18] MEDS: LIDOCAINE 2%HCL (LOCAL ANESTH.) INJ 20ML MDV ONE (10:05)
[2024-09-18 10:30] VITALS: BP 135/77; PULSE 78; RESP 18; O2SAT 100
[2024-09-18 10:45] VITALS: BP 124/76; PULSE 70; RESP 17; O2SAT 99
[2024-09-18 11:00] VITALS: BP 130/73; PULSE 73; RESP 14; O2SAT 99
[2024-09-18 11:15] VITALS: BP 132/77; PULSE 76; RESP 14; O2SAT 99
--- NOTE | 2024-09-18 13:41 | DVH ---
PROCEDURE: Genitourinary catheter exchange Procedural Personnel Attending physician(s): PETE FREEMAN Fellow physician(s): None Resident physician(s): None Advanced practice provider(s): None Pre-procedure diagnosis: Prostate CA Post-procedure diagnosis: Same Indication: Routine scheduled exchange Additional clinical history: None Complications: No immediate complications. IMPRESSION: Successful routine right PCN exchange. Plan: Flush drain with 10 cc normal saline to maintain patency. Routine exchange in 3 months if urinary div ersion still needed. PROCEDURE SUMMARY - Target organ: Unilateral [place] kidney - Antegrade nephrostogram(s) via the existing access - Nephrostomy tube exchange - Additional procedure(s): None PROCEDURE DETAILS: Pre-procedure Consent: Informed consent for the procedure including risks, benefits and alternatives was obtained a nd time-out was performed prior to the procedure. Preparation: The site was prepared and draped using maximal sterile barrier technique including cutan eous antisepsis. Anesthesia/sedation Level of anesthesia/sedation: No sedation Anesthesia/sedation administered by: Not applicable Total intra-service sedation time (minutes): 0 Genitourinary catheter exchange Side:Right [place] Local anesthesia was administered. Initial nephrostogram was performed. A wire was placed through the existing tube and it was removed. The new tube was advanced over the wire and position was confirmed with contrast injection. Pre-existing genitourinary catheter: 8.5 Hebrew MPD Genitourinary catheter(s) placed: 8.5 Hebrew MPD Findings: Appropriate position of new catheter; Persistent dilation of right renal collecting system External catheter securement: Non-absorbable suture and adhesive anchoring device Additional genitourinary system intervention Side:Not applicable Genitourinary intervention: None Location of intervention: Not applicable Device used: Not applicable Description of intervention: Not applicable Post-intervention findings: Not applicable Contrast Contrast agent: Visipaque 320 Contrast volume (mL): 10 Radiation Dose Fluoroscopy time (seconds): 32 Reference air kerma (mGy): 1 Kerma area product (Gy-cm2): 0.24 Additional Details Additional description of procedure: None Registry event: V/3/f Device used: Not applicable Equipment details: None Specimens removed: None. A sample was not sent for analysis. Estimated blood loss (mL): Less than 10 Standardized report: [id number] Attestation Signer name: Pete Freeman I attest that I was present for the entire procedure. I reviewed the stored images and agree with the report as written.
== END 2024-09-18 11:30 | disposition home or self-care (01) ==
LOC: CATH 08:57
PROVIDERS: ATTEND Surgery
DX: Z46.82 Encounter for fitting and adjustment of non-vascular catheter (principal); C61 Malignant neoplasm of prostate; Z79.899 Other long term (current) drug therapy
CPT/HCPCS: 50435; C1729; C1769; J1644; 75984; 99152; J2250

== ENCOUNTER → 2024-09-28 | Outpatient (CLI) | payer OTHER ==
[2024-09-28 11:49] LABS: Hematocrit 24.1 % (41.0-53.0); Hemoglobin 8.1 g/dL (13.5-17.5); Mean Corpuscular Hemoglobin 30.2 pg (28.0-32.0); Mean Corpuscular Volume 90.1 fL (80.0-100.0); Nucleated Red Blood Cells % 0.0 %
[2024-09-28 12:04] LABS: Alanine Aminotransferase 13 U/L (7-40); Albumin 4.6 g/dL (3.2-4.8); Alkaline Phosphatase 78 U/L (46-116); Anion Gap 9 (5-15); BUN/Creatinine Ratio 15.4 (10.0-20.0); Calcium 9.8 mg/dL (8.7-10.4); Carbon Dioxide 23 mmol/L (20-31); Chloride 102 mmol/L (98-107); Glucose 89 mg/dL (74-106); Potassium 4.0 mmol/L (3.5-5.1)
[2024-09-28 12:13] LABS: Bilirubin, Total 0.3 mg/dL (0.2-1.0); Blood Urea Nitrogen 51 mg/dL (9-23); Sodium 134 mmol/L (136-145); Total Protein 8.2 g/dL (5.7-8.2)
[2024-09-28 12:25] LABS: Urine Protein, UAD 1+ (Negative); Urine WBC Clumps PRESENT /hpf (None Seen)
== END | disposition home or self-care (01) ==
LOC: LAB 11:32
PROVIDERS: ATTEND Nurse Practitioner Family
DX: R10.31 Right lower quadrant pain (principal)
CPT/HCPCS: 36415; 80053; 81001; 85025

== ENCOUNTER → 2024-10-09 | Outpatient (CLI) | payer OTHER ==
[2024-10-09 11:06] LABS: Urine Amorphous Crystal FEW /hpf (None Seen); Urine Budding Yeast FEW /hpf (None Seen); Urine Protein, UAD 1+ (Negative); Urine WBC Clumps PRESENT /hpf (None Seen)
[2024-10-09 11:23] LABS: Hematocrit 23.8 % (41.0-53.0); Hemoglobin 8.1 g/dL (13.5-17.5); Mean Corpuscular Hemoglobin 30.5 pg (28.0-32.0); Mean Corpuscular Volume 90.1 fL (80.0-100.0); Nucleated Red Blood Cells % 0.0 %
[2024-10-09 11:46] LABS: Chloride 101.0 mmol/L (98-107)
[2024-10-09 11:47] LABS: Anion Gap 12.0 (5-15); Calcium 9.6 mg/dL (8.7-10.4); Carbon Dioxide 21.0 mmol/L (20-31)
[2024-10-09 11:48] LABS: Protein, Urine 99.5 mg/dL (1-14)
[2024-10-09 11:52] LABS: BUN/Creatinine Ratio 17.9 (10.0-20.0)
[2024-10-09 11:54] LABS: Albumin 4.4 g/dL (3.2-4.8)
[2024-10-09 12:12] LABS: Blood Urea Nitrogen 64.0 mg/dL (9-23); Glucose 137.0 mg/dL (74-106); Potassium 3.5 mmol/L (3.5-5.1); Sodium 134.0 mmol/L (136-145)
[2024-10-09 12:44] LABS: Uric Acid 10.9 mg/dL (3.7-9.2)
== END | disposition home or self-care (01) ==
LOC: LAB 10:12
PROVIDERS: ATTEND Internal Medicine
DX: E11.22 Type 2 diabetes mellitus with diabetic chronic kidney disease (principal); E11.21 Type 2 diabetes mellitus with diabetic nephropathy; N18.30 Chronic kidney disease, stage 3 unspecified; E21.3 Hyperparathyroidism, unspecified; E55.9 Vitamin D deficiency, unspecified; N39.0 Urinary tract infection, site not specified; D63.1 Anemia in chronic kidney disease; M10.9 Gout, unspecified; R80.9 Proteinuria, unspecified
CPT/HCPCS: 36415; 80069; 81001; 82043; 82570; 83970; 84156; 84550; 85025

== ENCOUNTER 2024-10-26 11:15 | Outpatient (CLI) | payer OTHER | END 2024-10-26 17:00 | disposition home or self-care (01) | LOC: LAB 11:15 | PROVIDERS: ATTEND Urology | DX: R97.20 Elevated prostate specific antigen [PSA] (principal) | CPT/HCPCS: 84153 ==

== ENCOUNTER 2024-11-26 14:57 | Inpatient (IN) | payer OTHER ==
[~2024-11-26] VITALS: Ht 175.3 cm; Wt 61.9 kg
--- NOTE | 2024-11-26 15:27 | ED.PDOC ---
History of Present Illness Chief Complaint: General Weakness Time Seen by MD: 15:00 Allergies: Coded Allergies: NO KNOWN ALLERGIES (Unverified , 09/16/24) Home Meds Reported Medications Ferrous Sulfate (Ferrous Sulfate) 325 Mg Tab, 325 MG PO DAILY for LOW IRON, MG 09/16/24 Potassium Chloride (Potassium Chloride ER) 20 Meq Tab, 20 MEQ PO DAILY for SUPPLEMENT, TAB 09/16/24 Furosemide (Lasix) 40 Mg Tab, 40 MG PO BID for EDEMA, TAB 09/16/24 Relugolix (Orgovyx) 120 Mg Tab, 50 MG PO DAILY for PROSTATE CANCER, TAB 07/08/23 Mode of Arrival: Wheelchair Past Medical History PAST MEDICAL HISTORY: Cancer, HTN Surgical History: Denies all surgeries Family History Family History: Reviewed,noncontributory to illness, Unknown Social History Smoker: Non-Smoker Alcohol: Denies ETOH Use Drugs: Denies Drug Use Lives In: Home Time of 1ST Reevaluation: 15:30 SEPSIS Sepsis Screen Date sepsis recognized/suspect: June 29, 2024 Time Sepsis recognized/suspect: 1306 Recent Procedure: No On Antibiotic Therapy: No Respiratory Rate >20: No Temp<36 C (96.8 F) or >38.3 C: No New Acute Mental Status Change: No Is the patient on CPAP, BIPAP,: No Critical Care Note Critical Care Time?: No Stability Stability form required: No Heart Score Heart Score: Heart Score Response (Comments) Value History N/A 0 EKG N/A 0 Age N/A 0 Risk Factors N/A 0 Troponin N/A 0 Total 0 I personally scribed for MORENITA DEXTER MD ([email or web address]) on 11/26/24 at 15:27. Electr onically submitted by Carlota Mojica ([email or web address]). I personally scribed for MORENITA DEXTER MD ([email or web address]) on 11/26/24 at 15:38. Electronically submitted by Carlota Mojica ([email or web address]). MORENITA DEXTER MD Nov 26, 2024 15:27
--- NOTE | 2024-11-26 15:40 | ED.PDOC ---
History of Present Illness HPI Comments 79 y/o M, with PMHx of end-stage renal disease not on dialysis, cancer and HTN presents to the ED via EMS for CC of generalized weakness. Patient states, he has been experiencing right-hip pain sudden onset, today (11/26/24). Patient reports, that he has prostate cancer that recently metastasized to his spinal cord and bones of the lower extremity. Patient denies any trauma, injury, or fall. No other symptoms or modifying factors are present at this time. Vital signs were stable. Chief Complaint: General Weakness Time Seen by MD: 15:00 Reviewed Notes: Nurses Notes, Personal Development Coach Notes, Medications, Allergies Allergies: Coded Allergies: NO KNOWN ALLERGIES (Unverified , 09/16/24) Home Meds Reported Medications Ferrous Sulfate (Ferrous Sulfate) 325 Mg Tab, 325 MG PO DAILY for LOW IRON, MG 09/16/24 Potassium Chloride (Potassium Chloride ER) 20 Meq Tab, 20 MEQ PO DAILY for SUPPLEMENT, TAB 09/16/24 Furosemide (Lasix) 40 Mg Tab, 40 MG PO BID for EDEMA, TAB 09/16/24 Relugolix (Orgovyx) 120 Mg Tab, 50 MG PO DAILY for PROSTATE CANCER, TAB 07/08/23 Information Source: Patient, Emergency Med Personnel Mode of Arrival: EMS Severity: Moderate Timing: Days Duration: Since onset Prehospital treatment: None Past Medical History PAST MEDICAL HISTORY: Cancer, ESRD, HTN Surgical History: Denies all surgeries Family History Family History: Reviewed,noncontributory to illness, Unknown Social History Smoker: Non-Smoker Alcohol: Denies ETOH Use Drugs: Denies Drug Use Lives In: Home Constitutional: denies: chills, diaphoresis, fatigue, fever, malaise, sweats, weakness, others EENTM: denies: blurred vision, double vision, ear bleeding, ear discharge, ear drainage, ear pain, ear ringing, eye pain, eye redness, hearing loss, mouth pain, mouth swelling, nasal discharge, nose bleeding, nose congestion, nose lionel n, photophobia, tearing, throat pain, throat swelling, voice changes, others Respiratory: denies: cough, hemoptysis, orthopnea, SOB at rest, shortness of breath, SOB with excertion, stridor, wheezing, others Cardiovascular: denies: chest pain, dizzy spells, diaphoresis, Dyspnea on exertion, edema, irregular heart beat, left arm pain, lightheadedness, palpitations, PND, syncope, others Gastrointestinal: denies: abdomen distended, abdominal pain, blood streaked bowels, constipated, diarrhea, dysphagia, difficulty swallowing, hematemesis, melena, nausea, poor appetite, poor fluid intake, rectal bleeding, rectal pain, vomiting, others Genitourinary: denies: burning, dysuria, flank pain, frequency, hematuria, incontinence, penile discharge, penile sore, pain, testicle pain, testicle swelling, urgency, others Neurological: denies: dizziness, fainting, headache, left sided numbness, left sided weakness, numbness, paresthesia, pre-existing deficit, right sided numbness, right sided weakness, seizure, speech problems, tingling, tremors, weakness, others Musculoskeletal: reports: others (RIGHT HIP PAIN); denies: back pain, gout, joint pain, joint swelling, muscle pain, muscle stiffness, neck pain Integumetry: denies: bruises, change in color, change in hair/nails, dryness, laceration, lesions, lumps, rash, wounds, others Allergic/Immunocompromised: denies: Difficulty Healing, Frequent Infections, Hives, Itching, others Hematologic/Lymphatic: denies: anemia, blood clots, easy bleeding, easy bruising, swollen glands, others Endocrine: denies: excessive hunger, excessive sweating, excessive thirst, excessive urination, flushing, intolerance to cold, intolerance to heat, unexplained weight gain, unexplained weight loss, others Psychiatric: denies: anxiety, bipolar disorder, depression, hopeless, panic disorder, schizophrenia, sleepless, suicidal, others All Other Systems: Reviewed and Negative Physical Exam General Appearance: Moderate Distress (Due to right hip pain.), Normal HEENT: Normal ENT Inspection, Pharynx Normal, TMs Normal Neck: Full Range of Motion, Non-Tender, Normal, Normal Inspection Respiratory: Chest Non-Tender, Lungs Clear, No Accessory Muscle Use, No Respiratory Distress, Normal Breath Sounds Cardiovascular: No Edema, No JVD, No Murmur, No Gallop, Normal Peripheral Pulses, Regular Rate/Rhythm Breast Exam: Deferred Gastrointestinal: No Organomegaly, Non Tender, No Pulsatile Mass, Normal Bowel Sounds, Soft Genitalia: Deferred Pelvic: Deferred Rectal: Deferred Extremities: Other (Diffuse right hip pain extending into the thigh and back region. No signs of trauma. Reduced range of motion noted.) Neurologic: Alert Cerebellar Function: NOT DONE Reflexes: NOT DONE Skin: Dry, Normal Color, Warm Lymphatic: No Adenopathy Was a procedure done? Was a procedure done?: No Differential Dx Considerations may include: Right hip pain, sepsis, electrolyte abnormality, end-stage renal disease X-Ray, Labs, Meds, VS Vital Signs Date Time Temp Pulse Resp B/P (MAP) Pulse Ox O2 Delivery O2 Flow Rate FiO2 11/26/24 18:04 69 14 103/59 11/26/24 18:03 69 14 103/59 (74) 98 11/26/24 17:13 68 13 119/62 11/26/24 17:00 68 13 98 Room Air* 0 21 11/26/24 17:00 68 13 119/62 (81) 98 11/26/24 15:01 98.7 100 18 131/70 97 98.7 Lab Test 11/26/24 17:05 11/26/24 16:01 Range/Units Troponin I High Sensitivity 11 12 </=54 ng/L White Blood Count 10.6 4.4-10.8 10^3/uL Red Blood Count 2.63 L 4.5-5.90 10^6/uL Hemoglobin 7.9 L 13.5-17.5 g/dL Hematocrit 23.1 L 41.0-53.0 % Mean Corpuscular Volume 88.1 80.0-100.0 fL Mean Corpuscular Hemoglobin 30.0 28.0-32.0 pg Mean Corpuscular Hemoglobin Concent 34.0 32.0-36.0 g/dL Red Cell Distribution Width 14.7 H 11.8-14.3 % Platelet Count 313 140-450 10^3/uL Mean Platelet Volume 6.8 L 6.9-10.8 fL Neutrophils (%) (Auto) 83.2 H 37.0-80.0 % Lymphocytes (%) (Auto) 4.9 L 10.0-50.0 % Monocytes (%) (Auto) 11.7 0.0-12.0 % Eosinophils (%) (Auto) 0.0 0.0-7.0 % Basophils (%) (Auto) 0.2 0.0-2.0 % Neutrophils # (Auto) 8.8 H 1.6-8.6 10 ^3/uL Lymphocytes # (Auto) 0.5 0.4-5.4 10 ^3/uL Monocytes # (Auto) 1.2 0-1.3 10 ^3/uL Eosinophils # (Auto) 0 0-0.8 10 ^3/uL Basophils # (Auto) 0 0-0.2 10 ^3/uL Nucleated Red Blood Cells 0.0 % D-Dimer, Quantitative 1.72 H 0.0-0.49 mg/L FEU Sodium Level 133 L 136-145 mmol/L Potassium Level 4.0 3.5-5.1 mmol/L Chloride Level 97 L 98-107 mmol/L Carbon Dioxide Level 23 20-31 mmol/L Anion Gap 13 5-15 Blood Urea Nitrogen 79 H 9-23 mg/dL Creatinine 3.41 H 0.700-1.30 mg/dL Glomerular Filtration Rate Calc 18 >90 mL/min BUN/Creatinine Ratio 23.2 H 10.0-20.0 Serum Glucose 124 H 74-106 mg/dL Calcium Level 9.1 8.7-10.4 mg/dL B-Type Natriuretic Peptide 62.71 0-100 pg/mL Current Medications Medications (Trade) Dose Ordered Sig/Hema Route Start Time Stop Time Status Last Admin Hydromorphone HCl (Dilaudid Injection) 0.5 mg ONCE ONCE IM 11/26/24 15:45 11/26/24 15:46 DC 11/26/24 17:13 X-Ray, Labs, Meds, VS Comment All studies performed the ED were evaluated by me personally. Serum studies revealed a concerning anemic state, hyponatremia, display of the renal disease that has been known as well as an elevated D-dimer. Patient needs to be admitted for pain management of his intractable right hip pain concerns as well as discussions related to his renal disease issues and evaluation of his near critical anemia. Time of 1ST Reevaluation: 18:44 Reevaluation 1ST: Improved Consultation: PCP Patient Education/Counseling: Diagnosis, Treatment Family Education/Counseling: Diagnosis, Treatment, No Family Present SEPSIS Sepsis Screen Date sepsis recognized/suspect: June 29, 2024 Time Sepsis recognized/suspect: 1306 Recent Procedure: No On Antibiotic Therapy: No Respiratory Rate >20: No Temp<36 C (96.8 F) or >38.3 C: No New Acute Mental Status Change: No Is the patient on CPAP, BIPAP,: No Physician Orders Chest Portable (11/26/24 15:38) Heplock Iv (11/26/24 15:38) Electrocardigram (11/26/24 15:38) Troponin-I Hs (11/26/24 18:38) Sodium Chloride 0.9% (11/26/24 18:45) Vital Signs Date Time Temp Pulse Resp B/P (MAP) Pulse Ox O2 Delivery O2 Flow Rate FiO2 11/26/24 18:04 69 14 103/59 11/26/24 18:03 69 14 103/59 (74) 98 11/26/24 17:13 68 13 119/62 11/26/24 17:00 68 13 98 Room Air* 0 21 11/26/24 17:00 68 13 119/62 (81) 98 11/26/24 15:01 98.7 100 18 131/70 97 98.7 Laboratory Tests Test 11/26/24 16:01 White Blood Count 10.6 10^3/uL (4.4-10.8) Medications Medications Dose Ordered Sig/Hema Route Start Time Stop Time Status Last Admin Dose Admin Hydromorphone HCl 0.5 mg ONCE ONCE IM 11/26/24 15:45 11/26/24 15:46 DC 11/26/24 17:13 Departure 1 Departure Time of Disposition: 18:44 Impression: Primary Impression: Intractable pain Additional Impressions: End stage renal disease Anemia Hyponatremia Disposition: ADMITTED INPATIENT Condition: Fair Discharged With: Self Critical Care Note Critical Care Time?: No Stability Stability form required: No Heart Score Heart Score: Heart Score Response (Comments) Value History N/A 0 EKG N/A 0 Age N/A 0 Risk Factors N/A 0 Troponin N/A 0 Total 0 I personally scribed for JOHNY WALLS PAC ([email or web address]) on 11/26/24 at 15:40. Electronically submitted by Carlota Mojica ([email or web address]). I personally scribed for JOHNY WALLS PAC ([email or web address]) on 11/26/24 at 15:53. Electronically submitted by Carlota Mojica ([email or web address]). JOHNY WALLS PAC Nov 26, 2024 15:40
[2024-11-26 16:13] LABS: Hematocrit 23.1 % (41.0-53.0); Hemoglobin 7.9 g/dL (13.5-17.5); Mean Corpuscular Hemoglobin 30.0 pg (28.0-32.0)
[2024-11-26 16:14] LABS: Mean Corpuscular Volume 88.1 fL (80.0-100.0); Nucleated Red Blood Cells % 0.0 %
--- NOTE | 2024-11-26 16:21 | DVH ---
CHEST RADIOGRAPH Indication: Chest pain Technique: Single frontal view of the chest was obtained COMPARISON: XY CHEST TWO VIEWS ROUTINE on DOS: 09/16/24, XY CHEST PORTABLE on DOS: 06/05/24, XY CHEST T WO VIEWS ROUTINE on DOS: 02/10/24, XY CHEST TWO VIEWS ROUTINE on DOS: 07/08/23 FINDINGS: Lines and Tubes: None Lungs: Increased interstital prominence. This may represent pulmonary vascular congestion and/or beny l pneumonia. Clinical correlation advised. Pleura: No effusion. No pneumothorax. Cardiomediastinal contours: Unremarkable Bones: Unremarkable IMPRESSION: Increased interstital prominence. This may represent pulmonary vascular congestion and/or viral pneumonia. Clinical correlation advised.
[2024-11-26 16:25] LABS: Potassium 4.0 mmol/L (3.5-5.1)
[2024-11-26 16:26] LABS: Anion Gap 13 (5-15); Calcium 9.1 mg/dL (8.7-10.4); Carbon Dioxide 23 mmol/L (20-31); Chloride 97 mmol/L (98-107); Sodium 133 mmol/L (136-145)
[2024-11-26 16:31] LABS: BUN/Creatinine Ratio 23.2 (10.0-20.0)
[2024-11-26 16:33] LABS: Blood Urea Nitrogen 79 mg/dL (9-23); Glucose 124 mg/dL (74-106)
[2024-11-26 17:00] VITALS: PULSE 68; RESP 13; O2SAT 98
[2024-11-26] MEDS: HYDROmorphone HCL 2 MG/ML VL/or syr IM ONE (17:13)
[2024-11-26] MEDS: SODIUM CHLORIDE 0.9% 1,000 ML IV ONE (19:30)
[2024-11-26] MEDS: SODIUM CHLOR 0.9% PF (SALINE LOCK) 10ML VIAL/SYR IV SCH (22:38)
--- NOTE | 2024-11-26 23:18 | DVHHP2 ---
History of Present Illness Reason for Visit: Generalized weakness History of Present Illness The patient is a 79-year-old male with past medical history of end-stage renal disease not on dialysis, prostate cancer, and hypertension who presented to [facility] ED with complaint of generalized weakness. Patient state s, he has been experiencing sudden onset of right-hip pain, reports prostate cancer that recently metastasized to his spinal cord and bones of the lower extremity. Patient was seen and evaluated in the ED, laboratory data shows WBC 10.6, hemoglobin 7.9, hematocrit 23.1, platelets 313, sodium 133, potassium 4.0, BUN 79, creatinine 3.4, glucose 124, calcium 9.1, troponin 12, calcium 9.1, BNP 62.71, D-dimer 1.72, blood pressure 103/59, heart rate 69, temperature 98.7 F, O2 saturation 98% on oxygen. Chest x-ray revealing increased interstitial prominence; may represent pulmonary vascular congestion and/or viral pneumonia. Please see medication orders section in the computer. On my assessment, family member at bedside, patient denied chest pain, no headache, dizziness, diaphoresis, currently on oxygen, no diarrhea, nausea, vomiting, no fever, no chills. Patient was admitted for further evaluation and medical management. Past Medical History Prostate cancer, ESRD, HTN Past Surgical History Denies all surgeries Family History Reviewed, noncontributory to the management of this case. Past Social History The patient lives at home, denies smoking, alcohol or illicit drugs abuse. Review of Systems Constitutional: Yes: Weakness; No: Fever, Chills, Sweats, Malaise, Other Eyes: No: Pain, Vision change, Conjunctivae inflammation, Eyelid inflammation, Other, Redness ENT: No: Ear pain, Ear discharge, Nose pain, Nose discharge, Nose congestion, Mouth pain, Mouth swelling, Throat pain, Throat swelling, Other Respiratory: Shortness of breath; No: Cough, Dry, SOB with excertion, Wheezing, Hemoptysis, Pleuritic Pain, Sputum, Wheezing, Other Cardiovascular: No: Chest Pain, Palpitations, Orthopnea, Paroxysmal Noc. Dyspnea, Edema, Lt Headedness, Other Gastrointestinal: No: Nausea, Vomiting, Abdominal Pain, Diarrhea, Constipation, Melena, Hematochezia, Other Genitourinary: No Dysuria, No Frequency, No Incontinence, No Hematuria, No Retention, No Other Musculoskeletal: other (Right hip pain); No: neck pain, shoulder pain, arm pain, back pain, hand pain, leg pain, foot pain Skin: No: Rash, Lesions, Jaundice, Bruising, Other Neurological: Weakness; No: Numbness, Incoordination, Change in speech, Confusion, Seizures, Other Allergies: Coded Allergies: NO KNOWN ALLERGIES (Unverified , 09/16/24) Medications Current Medications Medications Dose Ordered Sig/Hema Route Start Time Stop Time Status Last Admin Dose Admin Azithromycin 250 ml @ 125 mls/hr DAILY IV 11/27/24 10:00 Multivit/Ca Carb/ B Cmplx/FA/Prenat 1 tab DAILY PO 11/27/24 10:00 Aspirin 81 mg DAILY PO 11/27/24 10:00 Sodium Chloride 10 ml Q8HR IV 11/26/24 22:00 11/26/24 22:38 10 ML Acetaminophen/ Hydrocodone Bitart 1 tab Q4HP PRN PO 11/26/24 21:00 Ondansetron HCl 4 mg Q4HP PRN IV 11/26/24 21:00 Docusate Sodium 100 mg BIDPRN PRN PO 11/26/24 21:00 Acetaminophen 650 mg Q6HP PRN PO 11/26/24 21:00 Exam Vital Signs Vital Signs Date Time Temp Pulse Resp B/P (MAP) Pulse Ox O2 Delivery O2 Flow Rate FiO2 11/26/24 18:04 69 14 103/59 11/26/24 18:03 98 11/26/24 17:00 Room Air* 0 21 11/26/24 15:01 98.7 98.7 General Appearance: Alert, Oriented X3, Cooperative, No acute distress HEENT: Atraumatic, PERRLA, EOMI, Mucous membr. moist/pink Respiratory: Normal air movement, Other (Diminished breath sounds) Cardiovascular: Regular rate, Normal S1, Normal S2, No murmurs Abdominal: Normal bowel sounds, Soft, No tenderness, No hepatospenomegaly, No masses Extremities: No clubbing, No cyanosis, No edema, Normal pulses, No tenderness/swelling Skin: No rashes, No breakdown, No significant lesion Neuro: Normal speech, Normal tone, Sensation intact, Cranial nerves 3-12 NL, Reflexes 2+, Other (Generalized weakness) Psych/Mental Status: Mental status NL, Mood NL Labs/Xrays Labs Test 11/26/24 17:05 11/26/24 16:01 Range/Units Troponin I High Sensitivity 11 </=54 ng/L White Blood Count 10.6 4.4-10.8 10^3/uL Red Blood Count 2.63 L 4.5-5.90 10^6/uL Hemoglobin 7.9 L 13.5-17.5 g/dL Hematocrit 23.1 L 41.0-53.0 % Mean Corpuscular Volume 88.1 80.0-100.0 fL Mean Corpuscular Hemoglobin 30.0 28.0-32.0 pg Mean Corpuscular Hemoglobin Concent 34.0 32.0-36.0 g/dL Red Cell Distribution Width 14.7 H 11.8-14.3 % Platelet Count 313 140-450 10^3/uL Mean Platelet Volume 6.8 L 6.9-10.8 fL Neutrophils (%) (Auto) 83.2 H 37.0-80.0 % Lymphocytes (%) (Auto) 4.9 L 10.0-50.0 % Monocytes (%) (Auto) 11.7 0.0-12.0 % Eosinophils (%) (Auto) 0.0 0.0-7.0 % Basophils (%) (Auto) 0.2 0.0-2.0 % Neutrophils # (Auto) 8.8 H 1.6-8.6 10 ^3/uL Lymphocytes # (Auto) 0.5 0.4-5.4 10 ^3/uL Monocytes # (Auto) 1.2 0-1.3 10 ^3/uL Eosinophils # (Auto) 0 0-0.8 10 ^3/uL Basophils # (Auto) 0 0-0.2 10 ^3/uL Nucleated Red Blood Cells 0.0 % D-Dimer, Quantitative 1.72 H 0.0-0.49 mg/L FEU Sodium Level 133 L 136-145 mmol/L Potassium Level 4.0 3.5-5.1 mmol/L Chloride Level 97 L 98-107 mmol/L Carbon Dioxide Level 23 20-31 mmol/L Anion Gap 13 5-15 Blood Urea Nitrogen 79 H 9-23 mg/dL Creatinine 3.41 H 0.700-1.30 mg/dL Glomerular Filtration Rate Calc 18 >90 mL/min BUN/Creatinine Ratio 23.2 H 10.0-20.0 Serum Glucose 124 H 74-106 mg/dL Calcium Level 9.1 8.7-10.4 mg/dL B-Type Natriuretic Peptide 62.71 0-100 pg/mL PATIENT: YOANA KAPADIA ACCT: [id number] UNIT: [id number] : 1945 LOC: ER ROOM / BED: / AGE / SEX: 79 / M ADM STATUS: REG ER SERVICE 1538 ORDERING PHYSICIAN: JOHNY WALLS PAC PROCEDURE(s): CXRP - CHEST PORTABLE REASON: Chest pain ORDER NUMBER(s): [id number], ACCESSION NUMBER(s): [id number] CHEST RADIOGRAPH Indication: Chest pain Technique: Single frontal view of the chest was obtained COMPARISON: XY CHEST TWO VIEWS ROUTINE on DOS: 09/16/24, XY CHEST PORTABLE on DOS: 06/05/24, XY CHEST TWO VIEWS ROUTINE on DOS: 02/10/24, XY CHEST TWO VIEWS ROUTINE on DOS: 07/08/23 FINDINGS: Lines and Tubes: None Lungs: Increased interstital prominence. This may represent pulmonary vascular congestion and/or viral pneumonia. Clinical correlation advised. Pleura: No effusion. No pneumothorax. Cardiomediastinal contours: Unremarkable Bones: Unremarkable IMPRESSION: Increased interstital prominence. This may represent pulmonary vascular congestion and/or viral pneumonia. Clinical correlation advised. SEPSIS Sepsis Screen Date sepsis recognized/suspect: Nov 26, 2024 Time Sepsis recognized/suspect: 1700 Recent Procedure: No On Antibiotic Therapy: No Respiratory Rate >20: No Heart Rate >90: No Temp<36 C (96.8 F) or >38.3 C: No SBP <90 or MAP <65 mmHG: No New Acute Mental Status Change: No Is the patient on CPAP, BIPAP,: No Physician Orders Chest Portable (11/26/24 15:38) Heplock Iv (11/26/24 15:38) Electrocardigram (11/26/24 15:38) Sodium Chloride 0.9% (11/26/24 18:45) Type And Screen (11/26/24 20:58) Azithromycin 500mg/ 250ml (Zithromax 50 (11/27/24 10:00) Nm Vq Scan (11/26/24 20:58) *Dr. Patricia Gracia -[place] Denn[place] (11/26/24 20:58) B-Complex W/ C & Folic Tablet (Nephro-Vi (11/27/24 10:00) Aspirin Tablet (11/27/24 10:00) Allergies (11/26/24 20:58) Code Status (11/26/24 20:58) Renal Standard(2gna,3gk,Lopho) (11/27/24 Breakfast) Sodium Chloride Lock (Saline Lock Ns) (11/26/24 22:00) Oxygen Per Hour (11/26/24 20:58) Hydrocodone-Acet 5/325mg Tab (Prospect 5/32 (11/26/24 21:00) Ondansetron Hcl (Zofran) (11/26/24 21:00) Docusate Sodium Capsule (Colace Capsule) (11/26/24 21:00) Fall Risk Precautions In Place QSHIFT (11/26/24 20:58) Complete Blood Count (11/27/24 04:00) Comprehensive Metabolic Panel (11/27/24 04:00) Condition: Serious (11/26/24 20:58) Acetaminophen Tablet (Tylenol Tablet) (11/26/24 21:00) Maintain Bed Rest (11/26/24 20:58) Sequential Compression Device (11/26/24 ) Vital Signs Date Time Temp Pulse Resp B/P (MAP) Pulse Ox O2 Delivery O2 Flow Rate FiO2 11/26/24 18:04 69 14 103/59 11/26/24 18:03 69 14 103/59 (74) 98 11/26/24 17:13 68 13 119/62 11/26/24 17:00 68 13 98 Room Air* 0 21 11/26/24 17:00 68 13 119/62 (81) 98 Laboratory Tests Test 11/26/24 16:01 White Blood Count 10.6 10^3/uL (4.4-10.8) Medications Medications Dose Ordered Sig/Hema Route Start Time Stop Time Status Last Admin Dose Admin Hydromorphone HCl 0.5 mg ONCE ONCE IM 11/26/24 15:45 11/26/24 15:46 DC 11/26/24 17:13 0.5 MG Sodium Chloride 10 ml Q8HR IV 11/26/24 22:00 11/26/24 22:38 10 ML Sodium Chloride 1,000 ml @ 150 mls/hr Q6H40M ONCE IV 11/26/24 18:45 11/27/24 01:24 11/26/24 19:30 150 MLS/HR Assessment/Plan Assessment/Plan Intractable pain Hyponatremia Elevated D-dimer End stage renal disease Anemia, unspecified Generalized weakness Pneumonia, unspecified organism Plan 1. Admit to telemetry unit 2. Breathing treatment 3. Pain control management 4. IV antibiotic management 5. Management of fluids and electrolytes 6. Consultation for hospitalist 7. Diagnostic test chest x-ray 8. DVT prophylaxis-on aspirin 9. Repeat labs CBC, CMP in a.m. 10. Home medication reviewed and reconciled 11. Continue with current medical management 12. Treatment plan discussed with patient and RN. Patient verbalized understanding. Plan discussed with: Patient, Other (RN) My Orders Orders - KAMI GRIER DNP Procedure Category Date Status Time Type And Screen BBK 11/26/24 In Process 20:58 Azithromycin 500mg/ PHA 11/27/24 In Process 250ml (Zithromax 50 10:00 Nm Vq Scan NM 11/26/24 Logged 20:58 *Dr. [facility] -[facility] CONS 11/26/24 Transmitted Jesi 20:58 B-Complex W/ C & PHA 11/27/24 In Process Folic Tablet 10:00 Aspirin Tablet PHA 11/27/24 In Process 10:00 Allergies JEREMY 11/26/24 In Process 20:58 Code Status CODE 11/26/24 Transmitted 20:58 Renal DIET 11/27/24 Transmitted Standard(2gna,3gk,Lopho) Breakfast Sodium Chloride Lock PHA 11/26/24 In Process (Saline Lock Ns) 22:00 Oxygen Per Hour RT 11/26/24 Transmitted 20:58 Hydrocodone-Acet PHA 11/26/24 In Process 5/325mg Tab (Prospect 21:00 Ondansetron Hcl PHA 11/26/24 In Process (Zofran) 21:00 Docusate Sodium PHA 11/26/24 In Process Capsule (Colace 21:00 Fall Risk Precautions JEREMY 11/26/[address] 20:58 Complete Blood Count LAB 11/27/24 Verified 04:00 Comprehensive LAB 11/27/24 Verified Metabolic Panel 04:00 Condition: Serious JEREMY 11/26/24 In Process 20:58 Acetaminophen Tablet PHA 11/26/24 In Process (Tylenol Tablet) 21:00 Maintain Bed Rest JEREMY 11/26/24 In Process 20:58 Sequential JEREMY 11/26/24 In Process Compression Device Problem List: (1) Intractable pain (2) Hyponatremia (3) Anemia, unspecified (4) End stage renal disease (5) Elevated d-dimer (6) Generalized weakness (7) Pneumonia, unspecified organism Date of Service: Nov 26, 2024 Billing Provider: KAMI GRIER DNP Common Visit Codes: 32660-ASVTMAP INP/OBS CARE (HIGH) KAMI GRIER DNP Nov 26, 2024 23:18
[2024-11-26] MEDS ORDERED: MORPHINE SULFATE INJ 2 MG/ml SYRG IV PRN (23:30)
[2024-11-26] MEDS ORDERED: NITROGLYCERIN 0.4 MG SL TAB SL PRN (23:30)
[2024-11-26] MEDS: AZITHROMYCIN 500MG/ 250ML 250 ML IV ONE (23:32)
[2024-11-27] VITALS (8 sets, daily range): BP systolic 130–140; BP diastolic 67–85; PULSE 67–81; RESP 16–20; TEMP 96.9–98.9; O2SAT 95–97
[2024-11-27] MEDS: ACETAMINOPHEN 325 MG TAB PO PRN (01:59)
[2024-11-27 07:46] LABS: Hematocrit 23.8 % (41.0-53.0); Hemoglobin 8.0 g/dL (13.5-17.5); Mean Corpuscular Hemoglobin 30.0 pg (28.0-32.0); Mean Corpuscular Volume 88.7 fL (80.0-100.0); Nucleated Red Blood Cells % 0.0 %
[2024-11-27] MEDS: ONDANSETRON HCL 4 MG/2 ML VIAL IV PRN (08:04)
[2024-11-27 08:05] LABS: Alanine Aminotransferase 38 U/L (7-40); Albumin 4.1 g/dL (3.2-4.8); Alkaline Phosphatase 94 U/L (46-116); Anion Gap 16 (5-15); BUN/Creatinine Ratio 19.3 (10.0-20.0); Bilirubin, Total 0.4 mg/dL (0.2-1.0); Calcium 9.9 mg/dL (8.7-10.4); Carbon Dioxide 25 mmol/L (20-31); Chloride 98 mmol/L (98-107); Potassium 3.7 mmol/L (3.5-5.1); Sodium 139 mmol/L (136-145); Total Protein 8.1 g/dL (5.7-8.2)
[2024-11-27 08:06] LABS: Blood Urea Nitrogen 64 mg/dL (9-23); Glucose 115 mg/dL (74-106)
[2024-11-27] MEDS: AZITHROMYCIN 500MG/ 250ML 250 ML IV SCH (09:34)
[2024-11-27] MEDS: B-COMPLEX W/ C & FOLIC ACID(NEPHROVITE TAB) PO SCH (09:34)
--- NOTE | 2024-11-27 11:40 | DVHPN2 ---
Reviewed: Care Plan, H&P, Labs, Medications, Previous Orders, Radiology Changes from previous H/P or p: No Changes General: Per HPI Eyes: No Pain, No Vision change, No Conjunctivae inflammation, No Eyelid inflammation, No Other, No Redness ENT: No Ear pain, No Ear discharge, No Nose pain, No Nose discharge, No Nose congestion, No Mouth pain, No Mouth swelling, No Throat pain, No Throat swelling, No Other Cardiovascular: No Chest Pain, No Palpitations, No Orthopnea, No Paroxysmal Noc. Dyspnea, No Edema, No Lt Headedness, No Other Respiratory: No Cough, No Dry; Shortness of breath; No SOB with excertion, No Wheezing, No Hemoptysis, No Pleuritic Pain, No Sputum, No Other Gastrointestinal: No Nausea, No Vomiting, No Abdominal Pain, No Diarrhea, No Constipation, No Melena, No Hematochezia, No Other Genitourinary: No Dysuria, No Frequency, No Incontinence, No Hematuria, No Retention, No Other Musculoskeletal: other (Right hip pain); No neck pain, No shoulder pain, No arm pain, No back pain, No hand pain, No leg pain, No foot pain Skin: No Rash, No Lesions, No Jaundice, No Bruising, No Other Objective Vitals Vital Signs Date Time Temp Pulse Resp B/P (MAP) Pulse Ox O2 Delivery O2 Flow Rate FiO2 11/27/24 08:36 97.5 71 16 130/67 (88) 96 97.5 11/27/24 02:49 Room Air* 0 21 Intake/Output Intake and Output 11/27/24 07:00 Intake Total 450 ml Output Total 120 ml Balance 330 ml Intake Oral 300 ml IV Total 150 ml Output Urine Total 120 ml Medications Current Medications Medications Dose Ordered Sig/Hema Route Start Time Stop Time Status Last Admin Dose Admin Azithromycin 250 ml @ 125 mls/hr DAILY IV 11/27/24 10:00 11/27/24 09:34 125 MLS/HR Multivit/Ca Carb/ B Cmplx/FA/Prenat 1 tab DAILY PO 11/27/24 10:00 11/27/24 09:34 1 TAB Aspirin 81 mg DAILY PO 11/27/24 10:00 11/27/24 09:34 81 MG Sodium Chloride 10 ml Q8HR IV 11/26/24 22:00 11/27/24 05:53 10 ML Acetaminophen/ Hydrocodone Bitart 1 tab Q4HP PRN PO 11/26/24 21:00 Ondansetron HCl 4 mg Q4HP PRN IV 11/26/24 21:00 11/27/24 08:04 4 MG Docusate Sodium 100 mg BIDPRN PRN PO 11/26/24 21:00 Acetaminophen 650 mg Q6HP PRN PO 11/26/24 21:00 11/27/24 01:59 650 MG Nitroglycerin 0.4 mg Q5MINP PRN SL 11/26/24 23:30 Morphine Sulfate 2 mg Q30M PRN IV 11/26/24 23:30 Laboratory Results Laboratory Tests 11/27/24 07:35 Chemistry Test 11/26/24 16:01 11/27/24 07:35 Calcium Level 9.1 mg/dL (8.7-10.4) 9.9 mg/dL (8.7-10.4) Albumin 4.1 g/dL (3.2-4.8) Total Protein 8.1 g/dL (5.7-8.2) Coagulation Test 11/26/24 16:01 D-Dimer, Quantitative 1.72 mg/L FEU (0.0-0.49) H Cardiac Markers Test 11/26/24 16:01 B-Type Natriuretic Peptide 62.71 pg/mL (0-100) LFT Test 11/27/24 07:35 Alanine Aminotransferase (ALT) 38 U/L (7-40) Alkaline Phosphatase 94 U/L (46-116) Aspartate Amino Transferase (AST) 29 U/L (13-40) Total Bilirubin 0.4 mg/dL (0.2-1.0) Labs and/or images reviewed: Labs reviewed by me, Image(s) reviewed by me Assessment/Plan Assessment/Plan The patient is a 79-year-old male with past medical history of end-stage renal disease not on dialysis, prostate cancer, and hypertension who presented to [facility] [place] ED with complaint of generalized weakness. Patient states, he has been experiencing sudden onset of right-hip pain, reports prostate cancer that recently metastasized to his spinal cord and bones of the lower extremity. Patient was seen and evaluated in the ED, laboratory data shows WBC 10.6, hemoglobin 7.9, hematocrit 23.1, platelets 313, sodium 133, potassium 4.0, BUN 79, creatinine 3.4, glucose 124, calcium 9.1, troponin 12, calcium 9.1, BNP 62.71, D-dimer 1.72, blood pressure 103/59, heart rate 69, temperature 98.7 F, O2 saturation 98% on oxygen. Chest x-ray revealing increased interstitial prominence; may represent pulmonary vascular congestion and/or viral pneumonia. Please see medication orders section in the computer. On my assessment, family member at bedside, patient denied chest pain, no headache, dizziness, diaphoresis, currently on oxygen, no diarrhea, nausea, vomiting, no fever, no chills. Patient was admitted for further evaluation and medical management. (1) Intractable pain (2) Hyponatremia (3) Anemia, unspecified (4) End stage renal disease (5) Elevated d-dimer (6) Generalized weakness (7) Pneumonia, unspecified organism Plan discussed with: Patient Date of Service: Nov 27, 2024 Billing Provider: CHRISTIANA ENRIQUEZ DO Common Visit Codes: [id number] INP/OBS CARE(HIGH) CHRISTIANA ENRIQUEZ DO Nov 27, 2024 11:40
[2024-11-27] MEDS: HYDROcodone-ACET 5/325MG TAB PO PRN (13:36)
--- NOTE | 2024-11-27 14:53 | DVH ---
EXAM: CT CT AB PEL WO CON-NO ORAL OR IV INDICATION: abd pain TECHNIQUE: Volumetric multidetector CT images of the abdomen and pelvis were obtained without contras t. All CT scans at this facility use dose modulation, iterative reconstruction, and/or weight based d osing when appropriate to reduce radiation dose to as low as reasonably achievable. COMPARISON: CT CT AB PEL WO CON-NO ORAL OR IV on DOS: 10/05/24 FINDINGS: [LOWER CHEST]: The partially visualized lung bases are clear without a pleural effusion. The cardiac size is normal without pericardial effusion. Coronary artery calcifications. [LIVER]: Normal hepatic size without suspicious focal lesion. [GALLBLADDER AND BILIARY TREE]: No cholelithiasis. [SPLEEN]: Unremarkable. [PANCREAS]: Unremarkable. [ADRENAL GLANDS]: Unremarkable [KIDNEYS]: Right-sided percutaneous nephrostomy tube benign-appearing cysts of the right kidney 2 mm nonobstructive right inferior renal caliceal stone. 1 mm nonobstructive left inferior renal caliceal stone. [BLADDER]: Decompressed [REPRODUCTIVE ORGANS]: Prostatectomy [BOWEL/MESENTERY]: Stomach is distended with air-fluid level No CT evidence of bowel obstruction. nor mal appendix slight mesorectal edema [ASCITES]: Absent [LYMPHADENOPATHY]: No pathologically enlarged lymph nodes by CT size criteria [VASCULATURE]: No aneurysmal dilatation. [ABDOMINAL WALL]: Small possible fat containing right inguinal hernia [MUSCULOSKELETAL]: Abnormal areas of sclerosis3 at L4, L3, L2, T12 likely compatible with osseous met astatic disease. Additional areas of sclerosis of bilateral pelvic bones and proximal femurs. Multifo ehsan degenerative change of the visualized spine. bone island of the left proximal femur extensive abn ormal soft tissue osseous involvement of the entirety of the S1 and S2 portions of the sacrum with si gnificant sacral canal invasion contributing to the presacral edema. Imaging findings corroborate chel or PSMA findings. IMPRESSION: 1. Air-fluid distention of the stomach correlate for underlying gastritis versus gastroparesis. 2. Known significant sacral canal invasion and osseous metastatic involvement of the sacrum corrobora ting prior PSMA finding. Likely possible extension into the presacral space given associated slight m esorectal fat plane edema
--- NOTE | 2024-11-27 17:48 | DVHINCON2 ---
Date of service: Nov 27, 2024 Referring Physician Rodolfo Navarro Reason for Consultation CKD History of Present Illness 79 Y/O M with history of CKD stage IV , obstructive uropathy s/p Rt nephrostomy, metastatic prostate cancer to the spine and bone, and hypertension presented with chief complaint of sudden onset right hip pain, and generalized weakness. labs show Cr of 3.31 mg/dl, GFR: 18 ml/min, and Hb: 8.0 mg/dl. CXR shows pulm congestion vs pneumonia. Patient has been admitted for intractable pain and pneumonia. I have been consulted for CKD . Past Medical History CKD HTN Prostate cancer Past Surgical History Prostatectomy Rt Nephrostomy placement Allergies: Coded Allergies: NO KNOWN ALLERGIES (Unverified , 09/16/24) Home Meds Reported Medications Ferrous Sulfate (Ferrous Sulfate) 325 Mg Tab, 325 MG PO DAILY for LOW IRON, MG 09/16/24 Potassium Chloride (Potassium Chloride ER) 20 Meq Tab, 20 MEQ PO DAILY for SUPPLEMENT, TAB 09/16/24 Furosemide (Lasix) 40 Mg Tab, 40 MG PO BID for EDEMA, TAB 09/16/24 Relugolix (Orgovyx) 120 Mg Tab, 50 MG PO DAILY for PROSTATE CANCER, TAB 07/08/23 Current Medications Current Medications Medications (Trade) Dose Ordered Sig/Hema Route PRN Reason Start Time Stop Time Status Last Admin Azithromycin 250 ml @ 125 mls/hr DAILY IV 11/27/24 10:00 11/27/24 09:34 Multivit/Ca Carb/ B Cmplx/FA/Prenat (Nephro-Thad Tablet) 1 tab DAILY PO 11/27/24 10:00 11/27/24 09:34 Aspirin 81 mg DAILY PO 11/27/24 10:00 11/27/24 09:34 Sodium Chloride (Saline Lock Ns) 10 ml Q8HR IV 11/26/24 22:00 11/27/24 14:28 Acetaminophen/ Hydrocodone Bitart (Ernest 5/325MG Tab) 1 tab Q4HP PRN PO MODERATE PAIN (4-6 PAIN SCALE) 11/26/24 21:00 Ondansetron HCl (Zofran) 4 mg Q4HP PRN IV NAUSEA / VOMITING 11/26/24 21:00 Hold 11/27/24 08:04 Docusate Sodium (Colace Capsule) 100 mg BIDPRN PRN PO FOR CONSTIPATION 11/26/24 21:00 Acetaminophen (Tylenol Tablet) 650 mg Q6HP PRN PO PAIN SCALE 1-3 OR TEMP>100.4 11/26/24 21:00 11/27/24 01:59 Nitroglycerin (Ntrostat Sublingual) 0.4 mg Q5MINP PRN SL FOR CHEST PAIN 11/26/24 23:30 Morphine Sulfate 2 mg Q30M PRN IV FOR CHEST PAIN 11/26/24 23:30 Megestrol Acetate (Megace Oral Suspension) 400 mg BID PO 11/27/24 22:00 Metoclopramide HCl (Reglan Injection) 5 mg Q6HPRN PRN IV NAUSEA / VOMITING 11/27/24 12:45 Family History: Diabetes mellitus (DM) FH: cancer Review of Systems as per HPI, all other systems were reviewed and are negative H&P Exam Vital Signs/I&O Vital Sign Date Time Temp Pulse Resp B/P (MAP) Pulse Ox O2 Delivery O2 Flow Rate FiO2 11/27/24 16:30 97.8 67 17 132/76 (94) 95 97.8 11/27/24 08:00 Room Air* 0 21 Intake and Output 11/26/24 11/27/24 19:00 07:00 Intake Total 450 ml Output Total 120 ml Balance 330 ml Intake Oral 300 ml IV Total 150 ml Output Urine Total 120 ml Physical Exam Gen: NAD HEENT: NC, AT Lungs: Crackles lung bases Cardiac: RRR, no murmur Abd: soft, no distention Neuro: no focal deficits Ext: no edema + Rt nephrostomy draining yellow urine Labs/Diagnostic Data Labs/Diagnostic Data Laboratory Tests Test 11/27/24 07:35 11/26/24 17:05 11/26/24 16:01 Range/Units White Blood Count 11.6 H 10.6 4.4-10.8 10^3/uL Red Blood Count 2.68 L 2.63 L 4.5-5.90 10^6/uL Hemoglobin 8.0 L 7.9 L 13.5-17.5 g/dL Hematocrit 23.8 L 23.1 L 41.0-53.0 % Mean Corpuscular Volume 88.7 88.1 80.0-100.0 fL Mean Corpuscular Hemoglobin 30.0 30.0 28.0-32.0 pg Mean Corpuscular Hemoglobin Concent 33.8 34.0 32.0-36.0 g/dL Red Cell Distribution Width 14.9 H 14.7 H 11.8-14.3 % Platelet Count 340 313 140-450 10^3/uL Mean Platelet Volume 6.9 6.8 L 6.9-10.8 fL Neutrophils (%) (Auto) 89.7 H 83.2 H 37.0-80.0 % Lymphocytes (%) (Auto) 3.0 L 4.9 L 10.0-50.0 % Monocytes (%) (Auto) 7.0 11.7 0.0-12.0 % Eosinophils (%) (Auto) 0.1 0.0 0.0-7.0 % Basophils (%) (Auto) 0.2 0.2 0.0-2.0 % Neutrophils # (Auto) 10.4 H 8.8 H 1.6-8.6 10 ^3/uL Lymphocytes # (Auto) 0.3 L 0.5 0.4-5.4 10 ^3/uL Monocytes # (Auto) 0.8 1.2 0-1.3 10 ^3/uL Eosinophils # (Auto) 0 0 0-0.8 10 ^3/uL Basophils # (Auto) 0 0 0-0.2 10 ^3/uL Nucleated Red Blood Cells 0.0 0.0 % Sodium Level 139 # 133 L 136-145 mmol/L Potassium Level 3.7 4.0 3.5-5.1 mmol/L Chloride Level 98 97 L 98-107 mmol/L Carbon Dioxide Level 25 23 20-31 mmol/L Anion Gap 16 H 13 5-15 Blood Urea Nitrogen 64 #H 79 H 9-23 mg/dL Creatinine 3.31 H 3.41 H 0.700-1.30 mg/dL Glomerular Filtration Rate Calc 18 18 >90 mL/min BUN/Creatinine Ratio 19.3 23.2 H 10.0-20.0 Serum Glucose 115 H 124 H 74-106 mg/dL Calcium Level 9.9 9.1 8.7-10.4 mg/dL Total Bilirubin 0.4 0.2-1.0 mg/dL Aspartate Amino Transferase (AST) 29 13-40 U/L Alanine Aminotransferase (ALT) 38 7-40 U/L Alkaline Phosphatase 94 46-116 U/L Total Protein 8.1 5.7-8.2 g/dL Albumin 4.1 3.2-4.8 g/dL Troponin I High Sensitivity 11 12 </=54 ng/L D-Dimer, Quantitative 1.72 H 0.0-0.49 mg/L FEU B-Type Natriuretic Peptide 62.71 0-100 pg/mL Assessment CKD Stage IV , GFR 18 ml/min Obstructive uropathy with Rt nephrostomy in place Intractable pain Metastatic prostate cancer to the spine and bone Hypertension Hyponatremia, resolved Anemia of CKD Plan: Continue IV antibiotics Lasix prn for oliguria pain control daily BMP, and CBC Strict I&Os Plan discussed with: Patient, Spouse, Daughter KASIE SHAW MD Nov 27, 2024 17:48
[2024-11-27] MEDS: MEGESTROL ACET 400MG/10ML ORAL SUSP PO SCH (22:34)
[2024-11-28] VITALS (8 sets, daily range): BP systolic 105–138; BP diastolic 66–84; PULSE 64–79; RESP 16–19; TEMP 97.9–98.9; O2SAT 18–97
--- NOTE | 2024-11-28 14:56 | DVHPN2 ---
Subjective The patient seen and examined at bedside. Lots of pain. Daughter at bedside. They want to know the CT result. Per family, patient loss all of appetite, lots of pain and weakness. The patient cannot walk for couple weeks because of pain. Reviewed: Care Plan, H&P, Labs, Medications, Previous Orders, Radiology Changes from previous H/P or p: No Changes General: Per HPI Eyes: No Pain, No Vision change, No Conjunctivae inflammation, No Eyelid inflammation, No Other, No Redness ENT: No Ear pain, No Ear discharge, No Nose pain, No Nose discharge, No Nose congestion, No Mouth pain, No Mouth swelling, No Throat pain, No Throat swelling, No Other Cardiovascular: No Chest Pain, No Palpitations, No Orthopnea, No Paroxysmal Noc. Dyspnea, No Edema, No Lt Headedness, No Other Respiratory: No Cough, No Dry; Shortness of breath; No SOB with excertion, No Wheezing, No Hemoptysis, No Pleuritic Pain, No Sputum, No Other Gastrointestinal: No Nausea, No Vomiting, No Abdominal Pain, No Diarrhea, No Constipation, No Melena, No Hematochezia, No Other Genitourinary: No Dysuria, No Frequency, No Incontinence, No Hematuria, No Retention, No Other Musculoskeletal: other (Right hip pain); No neck pain, No shoulder pain, No arm pain, No back pain, No hand pain, No leg pain, No foot pain Skin: No Rash, No Lesions, No Jaundice, No Bruising, No Other Objective Vitals Vital Signs Date Time Temp Pulse Resp B/P (MAP) Pulse Ox O2 Delivery O2 Flow Rate FiO2 11/28/24 09:00 98.6 79 18 105/66 (79) 18 98.6 11/28/24 08:00 Room Air* 0 21 Intake/Output Intake and Output 11/28/24 07:00 Intake Total 900 ml Output Total 1300 ml Balance -400 ml Intake Oral 650 ml IV Total 250 ml Output Urine Total 1300 ml # Voids 10 General Appearance: Alert, Oriented X3, Cooperative, No acute distress HEENT: Atraumatic, PERRLA, EOMI, Mucous membr. moist/pink Neck: Supple Lungs: Clear to auscultation, Normal air movement Cardiovascular: Regular rate, Normal S1, Normal S2, No murmurs, Gallops, Rubs Abdomen: Normal bowel sounds, Soft, No tenderness Neuro: Cranial nerves 3-12 NL Psych/Mental Status: Mental status NL Medications Current Medications Medications Dose Ordered Sig/Hema Route Start Time Stop Time Status Last Admin Dose Admin Azithromycin 250 ml @ 125 mls/hr DAILY IV 11/27/24 10:00 11/28/24 09:19 125 MLS/HR Multivit/Ca Carb/ B Cmplx/FA/Prenat 1 tab DAILY PO 11/27/24 10:00 11/28/24 09:19 1 TAB Aspirin 81 mg DAILY PO 11/27/24 10:00 11/28/24 09:19 81 MG Sodium Chloride 10 ml Q8HR IV 11/26/24 22:00 11/28/24 14:15 10 ML Acetaminophen/ Hydrocodone Bitart 1 tab Q4HP PRN PO 11/26/24 21:00 Ondansetron HCl 4 mg Q4HP PRN IV 11/26/24 21:00 Hold 11/27/24 08:04 4 MG Docusate Sodium 100 mg BIDPRN PRN PO 11/26/24 21:00 Acetaminophen 650 mg Q6HP PRN PO 11/26/24 21:00 11/27/24 01:59 650 MG Nitroglycerin 0.4 mg Q5MINP PRN SL 11/26/24 23:30 Morphine Sulfate 2 mg Q30M PRN IV 11/26/24 23:30 Megestrol Acetate 400 mg BID PO 11/27/24 22:00 11/28/24 09:18 400 MG Metoclopramide HCl 5 mg Q6HPRN PRN IV 11/27/24 12:45 Laboratory Results Laboratory Tests 11/27/24 07:35 Labs and/or images reviewed: Labs reviewed by me Assessment/Plan Assessment/Plan Intractable pain due to mets of prostate cancer to bone CT scan show: Known significant sacral canal invasion and osseous metastatic involvement of the sacrum corroborating prior PSMA finding. Likely possible extension into the presacral space given associated slight mesorectal fat plane edema Hyponatremia Anemia ESRD Gastritis Elevation of d-dimer Generalized weakness Pneumonia Nephrostomy tube Continue current management DW daughter regarding to prostate cancer with meds that invade his sacrum area. Explains that his weakness and pain and also lost of appetite due to prostate cancer with mets to bone. Will get PT Will give fentanyl patch 25mcg q 72 hours Family request hospice. Urology consult for nephrostomy tube since patient request change the tube. Continue IV antibiotic SW consult for hospice evaluation. Plan discussed with: Patient Date of Service: Nov 28, 2024 Billing Provider: GEORGES DANG MD Common Visit Codes: [id number] INP/OBS CARE(HIGH) GEORGES DANG MD Nov 28, 2024 14:56
[2024-11-28] MEDS ORDERED: LACTULOSE 20Gm/30ML SOLN PO PRN (16:45)
--- NOTE | 2024-11-28 17:18 | DVHINCON2 ---
Date of service: Nov 28, 2024 Referring Physician Hospitalist Reason for Consultation "Nephrostomy bag" History of Present Illness Patient known to me for prostate cancer, Stage IV, and right ureteral obstruction. He is managed by right nephrostomy tube exchanged q 4 months. Last exchange by IR service was on 09/18/24. Next exchange TBA in January. 79-year-old male with past medical history of end-stage renal disease not on dialysis, prostate cancer, and hypertension who presented to [facility] ED with complaint of generalized weakness. Patient states, he has been experiencing sudden onset of right-hip pain, reports prostate cancer that recently metastasized to his spinal cord and bones of the lower extremity. Patient was seen and evaluated in the ED, laboratory data shows WBC 10.6, hemoglobin 7.9, hematocrit 23.1, platelets 313, sodium 133, potassium 4.0, BUN 79, creatinine 3.4, glucose 124, calcium 9.1, troponin 12, calcium 9.1, BNP 62.71, D-dimer 1.72, blood pressure 103/59, heart rate 69, temperature 98.7 F, O2 saturation 98% on oxygen. Chest x-ray revealing increased interstitial prominence; may represent pulmonary vascular congestion and/or viral pneumonia. Please see medication orders section in the computer. On my assessment, family member at bedside, patient denied chest pain, no headache, dizziness, diaphoresis, currently on oxygen, no diarrhea, nausea, vomiting, no fever, no chills. Patient was admitted for further evaluation and medical management. Past Medical History Prostate cancer, ESRD, HTN Past Surgical History Prostate biopsy Cystoscopy with stent placement and removal Right PNT with exchanges Family History: Diabetes mellitus (DM) FH: cancer Allergies: Coded Allergies: NO KNOWN ALLERGIES (Unverified , 09/16/24) Home Meds Reported Medications Ferrous Sulfate (Ferrous Sulfate) 325 Mg Tab, 325 MG PO DAILY for LOW IRON, MG 09/16/24 Potassium Chloride (Potassium Chloride ER) 20 Meq Tab, 20 MEQ PO DAILY for SUPPLEMENT, TAB 09/16/24 Furosemide (Lasix) 40 Mg Tab, 40 MG PO BID for EDEMA, TAB 09/16/24 Relugolix (Orgovyx) 120 Mg Tab, 50 MG PO DAILY for PROSTATE CANCER, TAB 07/08/23 Current Medications Current Medications Medications (Trade) Dose Ordered Sig/Hema Route PRN Reason Start Time Stop Time Status Last Admin Megestrol Acetate (Megace Oral Suspension) 400 mg BID PO 11/27/24 22:00 11/28/24 09:18 Lactulose 30 ml Q8HR PRN PO CONSTIPATION 11/28/24 16:45 Trazodone HCl (Desyrel) 100 mg HS PO 11/28/24 22:00 Throat Lozenges (Cepastat Lozenges) 1 sandra Q2HP PRN MT FOR SORE THROAT 11/28/24 16:45 Review of Systems Constitutional: Yes: Weakness; No: Fever, Chills, Sweats, Malaise, Other Eyes: No: Pain, Vision change, Conjunctivae inflammation, Eyelid inflammation, Other, Redness ENT: No: Ear pain, Ear discharge, Nose pain, Nose discharge, Nose congestion, Mouth pain, Mouth swelling, Throat pain, Throat swelling, Other Respiratory: Shortness of breath; No: Cough, Dry, SOB with excertion, Wheezing, Hemoptysis, Pleuritic Pain, Sputum, Wheezing, Other Cardiovascular: No: Chest Pain, Palpitations, Orthopnea, Paroxysmal Noc. Dyspnea, Edema, Lt Headedness, Other Gastrointestinal: No: Nausea, Vomiting, Abdominal Pain, Diarrhea, Constipation, Melena, Hematochezia, Other Genitourinary: No Dysuria, No Frequency, No Incontinence, No Hematuria, No Retention, No Other Musculoskeletal: other (Right hip pain); No: neck pain, shoulder pain, arm pain, back pain, hand pain, leg pain, foot pain Skin: No: Rash, Lesions, Jaundice, Bruising, Other Neurological: Weakness; No: Numbness, Incoordination, Change in speech, Confusion, Seizures, Other Allergies: Coded Allergies: NO KNOWN ALLERGIES (Unverified , 09/16/24) Medications Current Medications Medications Dose Ordered Sig/Hema Route Start Time Stop Time Status Last Admin Dose Admin Azithromycin 250 ml @ 125 mls/hr DAILY IV 11/27/24 10:00 Multivit/Ca Carb/ B Cmplx/FA/Prenat 1 tab DAILY PO 11/27/24 10:00 Aspirin 81 mg DAILY PO 11/27/24 10:00 Sodium Chloride 10 ml Q8HR IV 11/26/24 22:00 11/26/24 22:38 10 ML Acetaminophen/ Hydrocodone Bitart 1 tab Q4HP PRN PO 11/26/24 21:00 Ondansetron HCl 4 mg Q4HP PRN IV 11/26/24 21:00 Docusate Sodium 100 mg BIDPRN PRN PO 11/26/24 21:00 Acetaminophen 650 mg Q6HP PRN PO 11/26/24 21:00 Vital Signs Date Time Temp Pulse Resp B/P (MAP) Pulse Ox O2 Delivery O2 Flow Rate FiO2 11/26/24 18:04 69 14 103/59 11/26/24 18:03 98 11/26/24 17:00 Room Air* 0 21 11/26/24 15:01 98.7 98.7 General Appearance: Alert, Oriented X3, Cooperative, No acute distress HEENT: Atraumatic, PERRLA, EOMI, Mucous membr. moist/pink Respiratory: Normal air movement, Other (Diminished breath sounds) Cardiovascular: Regular rate, Normal S1, Normal S2, No murmurs Abdominal: Normal bowel sounds, Soft, No tenderness, No hepatospenomegaly, No masses Right PNT in situ Extremities: No clubbing, No cyanosis, No edema, Normal pulses, No tenderness/swelling Skin: No rashes, No breakdown, No significant lesion Neuro: Normal speech, Normal tone, Sensation intact, Cranial nerves 3-12 NL, Reflexes 2+, Other (Generalized weakness) Psych/Mental Status: Mental status NL, Mood NL Vital Signs Vital Signs Date Time Temp Pulse Resp B/P (MAP) Pulse Ox O2 Delivery O2 Flow Rate FiO2 11/28/24 16:48 98.2 68 18 113/72 (86) 97 98.2 11/28/24 08:00 Room Air* 0 21 Physical Exam Vital Signs Date Time Temp Pulse Resp B/P (MAP) Pulse Ox O2 Delivery O2 Flow Rate FiO2 11/26/24 18:04 69 14 103/59 11/26/24 18:03 98 11/26/24 17:00 Room Air* 0 21 11/26/24 15:01 98.7 98.7 General Appearance: Alert, Oriented X3, Cooperative, No acute distress HEENT: Atraumatic, PERRLA, EOMI, Mucous membr. moist/pink Respiratory: Normal air movement, Other (Diminished breath sounds) Cardiovascular: Regular rate, Normal S1, Normal S2, No murmurs Abdominal: Normal bowel sounds, Soft, No tenderness, No hepatospenomegaly, No masses Extremities: No clubbing, No cyanosis, No edema, Normal pulses, No tenderness/swelling Skin: No rashes, No breakdown, No significant lesion Neuro: Normal speech, Normal tone, Sensation intact, Cranial nerves 3-12 NL, Reflexes 2+, Other (Generalized weakness) Psych/Mental Status: Mental status NL, Mood NL Labs/Diagnostic Data Labs Test 11/27/24 07:35 11/26/24 17:05 11/26/24 16:01 Range/Units White Blood Count 11.6 H 4.4-10.8 10^3/uL Red Blood Count 2.68 L 4.5-5.90 10^6/uL Hemoglobin 8.0 L 13.5-17.5 g/dL Hematocrit 23.8 L 41.0-53.0 % Mean Corpuscular Volume 88.7 80.0-100.0 fL Mean Corpuscular Hemoglobin 30.0 28.0-32.0 pg Mean Corpuscular Hemoglobin Concent 33.8 32.0-36.0 g/dL Red Cell Distribution Width 14.9 H 11.8-14.3 % Platelet Count 340 140-450 10^3/uL Mean Platelet Volume 6.9 6.9-10.8 fL Neutrophils (%) (Auto) 89.7 H 37.0-80.0 % Lymphocytes (%) (Auto) 3.0 L 10.0-50.0 % Monocytes (%) (Auto) 7.0 0.0-12.0 % Eosinophils (%) (Auto) 0.1 0.0-7.0 % Basophils (%) (Auto) 0.2 0.0-2.0 % Neutrophils # (Auto) 10.4 H 1.6-8.6 10 ^3/uL Lymphocytes # (Auto) 0.3 L 0.4-5.4 10 ^3/uL Monocytes # (Auto) 0.8 0-1.3 10 ^3/uL Eosinophils # (Auto) 0 0-0.8 10 ^3/uL Basophils # (Auto) 0 0-0.2 10 ^3/uL Nucleated Red Blood Cells 0.0 % Sodium Level 139 # 136-145 mmol/L Potassium Level 3.7 3.5-5.1 mmol/L Chloride Level 98 98-107 mmol/L Carbon Dioxide Level 25 20-31 mmol/L Anion Gap 16 H 5-15 Blood Urea Nitrogen 64 #H 9-23 mg/dL Creatinine 3.31 H 0.700-1.30 mg/dL Glomerular Filtration Rate Calc 18 >90 mL/min BUN/Creatinine Ratio 19.3 10.0-20.0 Serum Glucose 115 H 74-106 mg/dL Calcium Level 9.9 8.7-10.4 mg/dL Total Bilirubin 0.4 0.2-1.0 mg/dL Aspartate Amino Transferase (AST) 29 13-40 U/L Alanine Aminotransferase (ALT) 38 7-40 U/L Alkaline Phosphatase 94 46-116 U/L Total Protein 8.1 5.7-8.2 g/dL Albumin 4.1 3.2-4.8 g/dL Troponin I High Sensitivity 11 </=54 ng/L D-Dimer, Quantitative 1.72 H 0.0-0.49 mg/L FEU B-Type Natriuretic Peptide 62.71 0-100 pg/mL Assessment Right PNT in situ Metastatic prostate cancer CKD Plan/Recommendation PSA IR management of right PNT Nephrostogram Plan discussed with: Patient, Other STACEY ARCOS MD Nov 28, 2024 17:18
[2024-11-28] MEDS: THROAT LOZENGES(CEPASTAT) MT PRN (19:12)
[2024-11-28] MEDS: fentaNYL 25MCG/HR 25 MCG/HR PAT TD SCH (21:37)
[2024-11-28] MEDS: METOCLOPRAMIDE HCL 5MG/ml INJ 2ml VIAL IV PRN (23:50)
[2024-11-29] VITALS (8 sets, daily range): BP systolic 112–137; BP diastolic 70–80; PULSE 78–88; RESP 15–19; TEMP 97.5–98.8; O2SAT 94–97
--- NOTE | 2024-11-29 13:06 | DVHPN2 ---
Subjective The patient seen and examined at bedside. Lots of pain but improved with fentanyl patch. Daughter at bedside. Patient still constipate, despite lactulose. Reviewed: Care Plan, H&P, Labs, Medications, Previous Orders, Radiology Changes from previous H/P or p: No Changes General: Per HPI Eyes: No Pain, No Vision change, No Conjunctivae inflammation, No Eyelid inflammation, No Other, No Redness ENT: No Ear pain, No Ear discharge, No Nose pain, No Nose discharge, No Nose congestion, No Mouth pain, No Mouth swelling, No Throat pain, No Throat swelling, No Other Cardiovascular: No Chest Pain, No Palpitations, No Orthopnea, No Paroxysmal Noc. Dyspnea, No Edema, No Lt Headedness, No Other Respiratory: No Cough, No Dry; Shortness of breath; No SOB with excertion, No Wheezing, No Hemoptysis, No Pleuritic Pain, No Sputum, No Other Gastrointestinal: No Nausea, No Vomiting, No Abdominal Pain, No Diarrhea, No Constipation, No Melena, No Hematochezia, No Other Genitourinary: No Dysuria, No Frequency, No Incontinence, No Hematuria, No Retention, No Other Musculoskeletal: other (Right hip pain); No neck pain, No shoulder pain, No arm pain, No back pain, No hand pain, No leg pain, No foot pain Skin: No Rash, No Lesions, No Jaundice, No Bruising, No Other Objective Vitals Vital Signs Date Time Temp Pulse Resp B/P (MAP) Pulse Ox O2 Delivery O2 Flow Rate FiO2 11/29/24 12:43 98.8 83 17 112/72 (85) 95 98.8 11/29/24 07:45 Room Air* 0 21 Intake/Output Intake and Output 11/29/24 07:00 Intake Total 1792 ml Output Total 1282 ml Balance 510 ml Intake Oral 1792 ml Output Urine Total 1282 ml General Appearance: Alert, Oriented X3, Cooperative, No acute distress HEENT: Atraumatic, PERRLA, EOMI, Mucous membr. moist/pink Neck: Supple Lungs: Clear to auscultation, Normal air movement Cardiovascular: Regular rate, Normal S1, Normal S2, No murmurs, Gallops, Rubs Abdomen: Normal bowel sounds, Soft, No tenderness Neuro: Cranial nerves 3-12 NL Psych/Mental Status: Mental status NL Medications Current Medications Medications Dose Ordered Sig/Hema Route Start Time Stop Time Status Last Admin Dose Admin Azithromycin 250 ml @ 125 mls/hr DAILY IV 11/27/24 10:00 11/29/24 09:24 125 MLS/HR Multivit/Ca Carb/ B Cmplx/FA/Prenat 1 tab DAILY PO 11/27/24 10:00 11/29/24 09:24 1 TAB Aspirin 81 mg DAILY PO 11/27/24 10:00 11/29/24 09:24 81 MG Sodium Chloride 10 ml Q8HR IV 11/26/24 22:00 11/29/24 05:48 10 ML Acetaminophen/ Hydrocodone Bitart 1 tab Q4HP PRN PO 11/26/24 21:00 Ondansetron HCl 4 mg Q4HP PRN IV 11/26/24 21:00 Hold 11/27/24 08:04 4 MG Docusate Sodium 100 mg BIDPRN PRN PO 11/26/24 21:00 Acetaminophen 650 mg Q6HP PRN PO 11/26/24 21:00 11/27/24 01:59 650 MG Nitroglycerin 0.4 mg Q5MINP PRN SL 11/26/24 23:30 Morphine Sulfate 2 mg Q30M PRN IV 11/26/24 23:30 Megestrol Acetate 400 mg BID PO 11/27/24 22:00 11/29/24 09:24 400 MG Metoclopramide HCl 5 mg Q6HPRN PRN IV 11/27/24 12:45 11/28/24 23:50 5 MG Lactulose 30 ml Q8HR PRN PO 11/28/24 16:45 Trazodone HCl 100 mg HS PO 11/28/24 22:00 11/28/24 21:25 100 MG Throat Lozenges 1 kenna Q2HP PRN MT 11/28/24 16:45 11/28/24 21:38 1 KENNA Fentanyl 25 mcg Q72H TD 11/28/24 21:00 11/28/24 21:37 25 MCG Laboratory Results Laboratory Tests 11/27/24 07:35 Microbiology Microbiology Date/Time Source Procedure Growth Status 11/28/24 04:00 Voided Urine Urine Culture - Preliminary Resulted Labs and/or images reviewed: Labs reviewed by me Assessment/Plan Assessment/Plan Intractable pain due to mets of prostate cancer to bone CT scan show: Known significant sacral canal invasion and osseous metastatic involvement of the sacrum corroborating prior PSMA finding. Likely possible extension into the presacral space given associated slight mesorectal fat plane edema Hyponatremia Anemia ESRD Gastritis Elevation of d-dimer Generalized weakness Pneumonia Nephrostomy tube Continue current management Continue PT Continue fentanyl patch 25mcg q 72 hours Family request hospice. Urology consult for nephrostomy tube since patient request change the tube. Continue IV antibiotic Waiting for hospice evaluation. Plan discussed with: Patient, Daughter My Orders Orders - GEORGES DANG MD Procedure Category Date Status Time Lactulose Oral PHA 11/28/24 In Process 16:45 Trazodone Hcl PHA 11/28/24 In Process (Desyrel) 22:00 Throat Lozenges PHA 11/28/24 In Process (Cepastat Lozenges) 16:45 * Urology Consult CONS 11/28/24 Transmitted 16:36 * Property Condition Assessor CONS 11/28/24 Transmitted Consult Fentanyl 25mcg/Hr PHA 11/28/24 In Process (Duragesic 25mcg/Hr) 21:00 Date of Service: Nov 29, 2024 Billing Provider: GEORGES DANG MD Common Visit Codes: [id number] INP/OBS CARE(HIGH) GEORGES DANG MD Nov 29, 2024 13:06
[2024-11-29] MEDS: DOCUSATE SOD 100 MG CAP PO PRN (17:38)
[2024-11-30] VITALS (7 sets, daily range): BP systolic 106–129; BP diastolic 63–81; PULSE 71–95; RESP 14–18; TEMP 97.7–98.8; O2SAT 94–98
--- NOTE | 2024-11-30 11:06 | DVHPN2 ---
Subjective The patient seen and examined at bedside. Lots of pain but improved with fentanyl patch. Daughter at bedside. Patient still constipate, despite lactulose. Patient also asking for breathrough pain meds. He cannot tolerate [place], he vomits them all out, and now cannot eat anything. Reviewed: Care Plan, H&P, Labs, Medications, Previous Orders, Radiology Changes from previous H/P or p: No Changes General: Per HPI Eyes: No Pain, No Vision change, No Conjunctivae inflammation, No Eyelid inflammation, No Other, No Redness ENT: No Ear pain, No Ear discharge, No Nose pain, No Nose discharge, No Nose congestion, No Mouth pain, No Mouth swelling, No Throat pain, No Throat swelling, No Other Cardiovascular: No Chest Pain, No Palpitations, No Orthopnea, No Paroxysmal Noc. Dyspnea, No Edema, No Lt Headedness, No Other Respiratory: No Cough, No Dry; Shortness of breath; No SOB with excertion, No Wheezing, No Hemoptysis, No Pleuritic Pain, No Sputum, No Other Gastrointestinal: No Nausea, No Vomiting, No Abdominal Pain, No Diarrhea, No Constipation, No Melena, No Hematochezia, No Other Genitourinary: No Dysuria, No Frequency, No Incontinence, No Hematuria, No Retention, No Other Musculoskeletal: other (Right hip pain); No neck pain, No shoulder pain, No arm pain, No back pain, No hand pain, No leg pain, No foot pain Skin: No Rash, No Lesions, No Jaundice, No Bruising, No Other Objective Vitals Vital Signs Date Time Temp Pulse Resp B/P (MAP) Pulse Ox O2 Delivery O2 Flow Rate FiO2 11/30/24 08:36 97.7 85 14 106/63 (77) 94 97.7 11/29/24 20:00 Room Air* 0 21 Intake/Output Intake and Output 11/30/24 07:00 Intake Total 1610 ml Output Total 500 ml Balance 1110 ml Intake Oral 1360 ml IV Total 250 ml Output Urine Total 500 ml # Voids 6 General Appearance: Alert, Oriented X3, Cooperative, No acute distress HEENT: Atraumatic, PERRLA, EOMI, Mucous membr. moist/pink Neck: Supple Lungs: Clear to auscultation, Normal air movement Cardiovascular: Regular rate, Normal S1, Normal S2, No murmurs, Gallops, Rubs Abdomen: Normal bowel sounds, Soft, No tenderness Neuro: Cranial nerves 3-12 NL Psych/Mental Status: Mental status NL Medications Current Medications Medications Dose Ordered Sig/Hema Route Start Time Stop Time Status Last Admin Dose Admin Azithromycin 250 ml @ 125 mls/hr DAILY IV 11/27/24 10:00 11/30/24 10:15 125 MLS/HR Multivit/Ca Carb/ B Cmplx/FA/Prenat 1 tab DAILY PO 11/27/24 10:00 11/29/24 09:24 1 TAB Aspirin 81 mg DAILY PO 11/27/24 10:00 11/29/24 09:24 81 MG Sodium Chloride 10 ml Q8HR IV 11/26/24 22:00 11/30/24 05:37 10 ML Acetaminophen/ Hydrocodone Bitart 1 tab Q4HP PRN PO 11/26/24 21:00 Ondansetron HCl 4 mg Q4HP PRN IV 11/26/24 21:00 Hold 11/27/24 08:04 4 MG Docusate Sodium 100 mg BIDPRN PRN PO 11/26/24 21:00 11/29/24 17:38 100 MG Acetaminophen 650 mg Q6HP PRN PO 11/26/24 21:00 11/29/24 17:38 650 MG Nitroglycerin 0.4 mg Q5MINP PRN SL 11/26/24 23:30 Morphine Sulfate 2 mg Q30M PRN IV 11/26/24 23:30 Megestrol Acetate 400 mg BID PO 11/27/24 22:00 11/29/24 09:24 400 MG Metoclopramide HCl 5 mg Q6HPRN PRN IV 11/27/24 12:45 11/30/24 10:16 5 MG Lactulose 30 ml Q8HR PRN PO 11/28/24 16:45 Trazodone HCl 100 mg HS PO 11/28/24 22:00 11/28/24 21:25 100 MG Throat Lozenges 1 kenna Q2HP PRN MT 11/28/24 16:45 11/28/24 21:38 1 KENNA Fentanyl 25 mcg Q72H TD 11/28/24 21:00 11/28/24 21:37 25 MCG Hydromorphone HCl 0.5 mg Q6HPRN PRN IV 11/30/24 11:00 UNV Laboratory Results Laboratory Tests 11/27/24 07:35 Microbiology Microbiology Date/Time Source Procedure Growth Status 11/28/24 04:00 Voided Urine Urine Culture - Preliminary Resulted Labs and/or images reviewed: Labs reviewed by me Assessment/Plan Assessment/Plan Intractable pain due to mets of prostate cancer to bone CT scan show: Known significant sacral canal invasion and osseous metastatic involvement of the sacrum corroborating prior PSMA finding. Likely possible extension into the presacral space given associated slight mesorectal fat plane edema Hyponatremia Anemia ESRD Gastritis Elevation of d-dimer Generalized weakness Pneumonia Nephrostomy tube Intractable nausea/vomiting Continue current management Continue PT Continue fentanyl patch 25mcg q 72 hours Family request hospice. Urology will change nephrostomy tube today Continue IV antibiotic Family agree with hospice. will dc when patient pain improved. Zofran PRN for nausea/vomiting GI consult for intractable nausea/vomiting. Plan discussed with: Patient, Daughter My Orders Orders - GEORGES DANG MD Procedure Category Date Status Time Hydromorphone PHA 11/30/24 Logged Injection (Dilaudid 11:00 Date of Service: Nov 30, 2024 Billing Provider: GEORGES DANG MD Common Visit Codes: [id number] INP/OBS CARE(HIGH) GEORGES DANG MD Nov 30, 2024 11:06
[2024-11-30] MEDS: FLEET ENEMA(ADULT) 135 ML PR ONE (13:30)
[2024-11-30] MEDS: HYDROmorphone HCL 2 MG/ML VL/or syr IV PRN (13:39)
--- NOTE | 2024-11-30 22:36 | DVHINCON2 ---
Date of service: Nov 30, [address] Marie Reason for Consultation Abdominal pain and abnormal finding GI tract imaging History of Present Illness 79-year-old male with history of prostate cancer, Stage IV, and right ureteral obstruction. He is managed by right nephrostomy tube exchanged q 4 months. Last exchange by IR service was on 09/18/24. Next exchange TBA in January. Patient was admitted by generalized weakness right hip pain. Currently he is complaining of abdominal discomfort. CT scan of the abdomen pelvis shows gastr oparesis possible gastritis and gastric distention. I was asked to evaluate him for possible endoscopy Past Medical History Past Medical History Prostate cancer, ESRD, HTN Past Surgical History Past Surgical History Prostate biopsy Cystoscopy with stent placement and removal Right PNT with exchanges Family History: Diabetes mellitus (DM) FH: cancer Allergies: Coded Allergies: NO KNOWN ALLERGIES (Unverified , 09/16/24) Home Meds Reported Medications Ferrous Sulfate (Ferrous Sulfate) 325 Mg Tab, 325 MG PO DAILY for LOW IRON, MG 09/16/24 Potassium Chloride (Potassium Chloride ER) 20 Meq Tab, 20 MEQ PO DAILY for SUPPLEMENT, TAB 09/16/24 Furosemide (Lasix) 40 Mg Tab, 40 MG PO BID for EDEMA, TAB 09/16/24 Relugolix (Orgovyx) 120 Mg Tab, 50 MG PO DAILY for PROSTATE CANCER, TAB 07/08/23 Current Medications Current Medications Medications (Trade) Dose Ordered Sig/Hema Route PRN Reason Start Time Stop Time Status Last Admin Hydromorphone HCl (Dilaudid Injection) 0.5 mg Q6HPRN PRN IV MODERATE PAIN (4-6 PAIN SCALE) 11/30/24 11:00 11/30/24 21:53 Vital Signs Vital Signs Date Time Temp Pulse Resp B/P (MAP) Pulse Ox O2 Delivery O2 Flow Rate FiO2 11/30/24 21:53 79 16 123/75 11/30/24 21:00 98.2 98 98.2 11/29/24 20:00 Room Air* 0 21 Physical Exam General Appearance: Alert, Oriented X3, Cooperative, No acute distress HEENT: Atraumatic, PERRLA, EOMI, Mucous membr. moist/pink Neck: Supple Lungs: Clear to auscultation, Normal air movement Cardiovascular: Regular rate, Normal S1, Normal S2, No murmurs, Gallops, Rubs Abdomen: Normal bowel sounds, Soft, mild epigastric tenderness Neuro: Cranial nerves 3-12 NL Psych/Mental Status: Mental status NL Labs/Diagnostic Data Labs Test 11/28/24 18:11 11/27/24 07:35 11/26/24 17:05 11/26/24 16:01 Range/Units White Blood Count 11.6 H 4.4-10.8 10^3/uL Red Blood Count 2.68 L 4.5-5.90 10^6/uL Hemoglobin 8.0 L 13.5-17.5 g/dL Hematocrit 23.8 L 41.0-53.0 % Mean Corpuscular Volume 88.7 80.0-100.0 fL Mean Corpuscular Hemoglobin 30.0 28.0-32.0 pg Mean Corpuscular Hemoglobin Concent 33.8 32.0-36.0 g/dL Red Cell Distribution Width 14.9 H 11.8-14.3 % Platelet Count 340 140-450 10^3/uL Mean Platelet Volume 6.9 6.9-10.8 fL Neutrophils (%) (Auto) 89.7 H 37.0-80.0 % Lymphocytes (%) (Auto) 3.0 L 10.0-50.0 % Monocytes (%) (Auto) 7.0 0.0-12.0 % Eosinophils (%) (Auto) 0.1 0.0-7.0 % Basophils (%) (Auto) 0.2 0.0-2.0 % Neutrophils # (Auto) 10.4 H 1.6-8.6 10 ^3/uL Lymphocytes # (Auto) 0.3 L 0.4-5.4 10 ^3/uL Monocytes # (Auto) 0.8 0-1.3 10 ^3/uL Eosinophils # (Auto) 0 0-0.8 10 ^3/uL Basophils # (Auto) 0 0-0.2 10 ^3/uL Nucleated Red Blood Cells 0.0 % Sodium Level 139 # 136-145 mmol/L Potassium Level 3.7 3.5-5.1 mmol/L Chloride Level 98 98-107 mmol/L Carbon Dioxide Level 25 20-31 mmol/L Anion Gap 16 H 5-15 Blood Urea Nitrogen 64 #H 9-23 mg/dL Creatinine 3.31 H 0.700-1.30 mg/dL Glomerular Filtration Rate Calc 18 >90 mL/min BUN/Creatinine Ratio 19.3 10.0-20.0 Serum Glucose 115 H 74-106 mg/dL Calcium Level 9.9 8.7-10.4 mg/dL Total Bilirubin 0.4 0.2-1.0 mg/dL Aspartate Amino Transferase (AST) 29 13-40 U/L Alanine Aminotransferase (ALT) 38 7-40 U/L Alkaline Phosphatase 94 46-116 U/L Total Protein 8.1 5.7-8.2 g/dL Albumin 4.1 3.2-4.8 g/dL Troponin I High Sensitivity 11 </=54 ng/L D-Dimer, Quantitative 1.72 H 0.0-0.49 mg/L FEU B-Type Natriuretic Peptide 62.71 0-100 pg/mL Microbiology Date/Time Source Procedure Growth Status 11/28/24 04:00 Voided Urine Urine Culture - Final Complete CT SCAN ABD PELVIS IMPRESSION: 1. Air-fluid distention of the stomach correlate for underlying gastritis versus gastroparesis. 2. Known significant sacral canal invasion and osseous metastatic involvement of the sacrum corroborating prior PSMA finding. Likely possible extension into the presacral space given associated slight mesorectal fat plane edema Problems(with codes): (1) Generalized weakness (2) Anemia (3) Intractable pain (4) End stage renal disease (5) UTI (urinary tract infection) (6) Chronic kidney disease Plan/Recommendation Plan Continue PT Continue fentanyl patch 25mcg q 72 hours I will schedule him for an possible endoscopy on 12/01/2024 to evaluate his GI symptoms Urology consult for nephrostomy tube since patient request change the tube. Continue IV antibiotic Waiting for hospice evaluation. Plan discussed with: Patient YASMINE BAPTISTE MD Nov 30, 2024 22:36
[2024-12-01] VITALS (10 sets, daily range): BP systolic 98–150; BP diastolic 64–86; PULSE 51–94; RESP 14–20; TEMP 36.9; O2SAT 95–100
[2024-12-01 09:07] LABS: Prostate Specific Antigen 0.2 ng/mL (0.0-4.0)
[2024-12-01] MEDS ORDERED: IOHEXOL 300 MG/ML 100ML BOTTLE IJ ONE (09:12)
[2024-12-01] MEDS ORDERED: LIDOCAINE 2%HCL (LOCAL ANESTH.) INJ 10ml MDV ONE (09:44)
--- NOTE | 2024-12-01 10:30 | DVHPN2 ---
Subjective The patient seen and examined at bedside. Lots of pain but improved with fentanyl patch. Daughter at bedside. Patient still constipate, despite lactulose. Patient also asking for breathrough pain meds. He cannot tolerate [place], he vomits them all out, and now cannot eat anything. Reviewed: Care Plan, H&P, Labs, Medications, Previous Orders, Radiology General: Per HPI Eyes: No Pain, No Vision change, No Conjunctivae inflammation, No Eyelid inflammation, No Other, No Redness ENT: No Ear pain, No Ear discharge, No Nose pain, No Nose discharge, No Nose congestion, No Mouth pain, No Mouth swelling, No Throat pain, No Throat swelling, No Other Cardiovascular: No Chest Pain, No Palpitations, No Orthopnea, No Paroxysmal Noc. Dyspnea, No Edema, No Lt Headedness, No Other Respiratory: No Cough, No Dry; Shortness of breath; No SOB with excertion, No Wheezing, No Hemoptysis, No Pleuritic Pain, No Sputum, No Other Gastrointestinal: No Nausea, No Vomiting, No Abdominal Pain, No Diarrhea, No Constipation, No Melena, No Hematochezia, No Other Genitourinary: No Dysuria, No Frequency, No Incontinence, No Hematuria, No Retention, No Other Musculoskeletal: other (Right hip pain); No neck pain, No shoulder pain, No arm pain, No back pain, No hand pain, No leg pain, No foot pain Skin: No Rash, No Lesions, No Jaundice, No Bruising, No Other Objective Vitals Vital Signs Date Time Temp Pulse Resp B/P (MAP) Pulse Ox O2 Delivery O2 Flow Rate FiO2 12/01/24 09:00 98.4 87 14 98/64 (75) 97 98.4 11/30/24 20:00 Room Air* 0 21 Intake/Output Intake and Output 12/01/24 07:00 Intake Total 1405 ml Output Total 400 ml Balance 1005 ml Intake Oral 1405 ml Output Urine Total 400 ml # Bowel Movements 2 General Appearance: Alert, Oriented X3, Cooperative, No acute distress HEENT: Atraumatic, PERRLA, EOMI, Mucous membr. moist/pink Neck: Supple Lungs: Clear to auscultation, Normal air movement Cardiovascular: Regular rate, Normal S1, Normal S2, No murmurs, Gallops, Rubs Abdomen: Normal bowel sounds, Soft, No tenderness Neuro: Cranial nerves 3-12 NL Psych/Mental Status: Mental status NL Medications Current Medications Medications Dose Ordered Sig/Hema Route Start Time Stop Time Status Last Admin Dose Admin Azithromycin 250 ml @ 125 mls/hr DAILY IV 11/27/24 10:00 11/30/24 10:15 125 MLS/HR Multivit/Ca Carb/ B Cmplx/FA/Prenat 1 tab DAILY PO 11/27/24 10:00 11/29/24 09:24 1 TAB Aspirin 81 mg DAILY PO 11/27/24 10:00 11/29/24 09:24 81 MG Sodium Chloride 10 ml Q8HR IV 11/26/24 22:00 12/01/24 05:59 10 ML Acetaminophen/ Hydrocodone Bitart 1 tab Q4HP PRN PO 11/26/24 21:00 Hold Ondansetron HCl 4 mg Q4HP PRN IV 11/26/24 21:00 Hold 11/27/24 08:04 4 MG Docusate Sodium 100 mg BIDPRN PRN PO 11/26/24 21:00 11/29/24 17:38 100 MG Acetaminophen 650 mg Q6HP PRN PO 11/26/24 21:00 11/29/24 17:38 650 MG Nitroglycerin 0.4 mg Q5MINP PRN SL 11/26/24 23:30 Morphine Sulfate 2 mg Q30M PRN IV 11/26/24 23:30 Megestrol Acetate 400 mg BID PO 11/27/24 22:00 11/29/24 09:24 400 MG Metoclopramide HCl 5 mg Q6HPRN PRN IV 11/27/24 12:45 11/30/24 10:16 5 MG Lactulose 30 ml Q8HR PRN PO 11/28/24 16:45 Trazodone HCl 100 mg HS PO 11/28/24 22:00 11/30/24 21:42 100 MG Throat Lozenges 1 kenna Q2HP PRN MT 11/28/24 16:45 11/28/24 21:38 1 KENNA Fentanyl 25 mcg Q72H TD 11/28/24 21:00 11/28/24 21:37 25 MCG Hydromorphone HCl 0.5 mg Q6HPRN PRN IV 11/30/24 11:00 12/01/24 06:00 0.5 MG Laboratory Results Laboratory Tests 11/27/24 07:35 Microbiology Microbiology Date/Time Source Procedure Growth Status 11/28/24 04:00 Voided Urine Urine Culture - Final Complete Assessment/Plan Assessment/Plan Intractable pain due to mets of prostate cancer to bone CT scan show: Known significant sacral canal invasion and osseous metastatic involvement of the sacrum corroborating prior PSMA finding. Likely possible extension into the presacral space given associated slight mesorectal fat plane edema Hyponatremia Anemia ESRD Gastritis Elevation of d-dimer Generalized weakness Pneumonia Nephrostomy tube Intractable nausea/vomiting Continue current management Continue PT Continue fentanyl patch 25mcg q 72 hours Family request hospice. Urology will change nephrostomy tube today Continue IV antibiotic Family agree with hospice. will dc when patient pain improved. Zofran PRN for nausea/vomiting GI consult for intractable nausea/vomiting. My Orders Orders - GEORGES DANG MD Procedure Category Date Status Time Hydromorphone PHA 11/30/24 In Process Injection (Dilaudid 11:00 * Gi [facility] CONS 11/30/24 Transmitted 13:22 Change Perc. Drain W XY 12/01/24 Taken Contrast 09:33 GEORGES DANG MD Dec 01, 2024 10:30
[2024-12-01] MEDS ORDERED: FENT25DI2 TD (11:35)
[2024-12-01] MEDS ORDERED: DOCU-265 PO (11:35)
[2024-12-01] MEDS ORDERED: TRAZ-227 PO (11:35)
[2024-12-01] MEDS ORDERED: MEGE1SUS5 PO (11:39)
[2024-12-01] MEDS ORDERED: AZIT-185 PO (11:39)
--- NOTE | 2024-12-01 11:41 | DVHDS2 ---
Discharge Summary Date of Admission Nov 26, 2024 at 23:17 Date of Discharge: Dec 01, 2024 Admitting Diagnosis Intractable pain Hyponatremia Anemia ESRD Gastritis Elevation of d-dimer Generalized weakness Pneumonia Nephrostomy tube Labs/Diagnostic Data: Laboratory Results Test 11/28/24 18:11 11/27/24 07:35 11/26/24 17:05 11/26/24 16:01 Free Prostate Specific Antigen 0.08 ng/mL (N/A) Percent Free Prostate Specific Ag 40.0 % (.) Prostate Specific Antigen Total 0.2 ng/mL (0.0-4.0) White Blood Count 11.6 10^3/uL (4.4-10.8) Red Blood Count 2.68 10^6/uL (4.5-5.90) Hemoglobin 8.0 g/dL (13.5-17.5) Hematocrit 23.8 % (41.0-53.0) Mean Corpuscular Volume 88.7 fL (80.0-100.0) Mean Corpuscular Hemoglobin 30.0 pg (28.0-32.0) Mean Corpuscular Hemoglobin Concent 33.8 g/dL (32.0-36.0) Red Cell Distribution Width 14.9 % (11.8-14.3) Platelet Count 340 10^3/uL (140-450) Mean Platelet Volume 6.9 fL (6.9-10.8) Neutrophils (%) (Auto) 89.7 % (37.0-80.0) Lymphocytes (%) (Auto) 3.0 % (10.0-50.0) Monocytes (%) (Auto) 7.0 % (0.0-12.0) Eosinophils (%) (Auto) 0.1 % (0.0-7.0) Basophils (%) (Auto) 0.2 % (0.0-2.0) Neutrophils # (Auto) 10.4 10 ^3/uL (1.6-8.6) Lymphocytes # (Auto) 0.3 10 ^3/uL (0.4-5.4) Monocytes # (Auto) 0.8 10 ^3/uL (0-1.3) Eosinophils # (Auto) 0 10 ^3/uL (0-0.8) Basophils # (Auto) 0 10 ^3/uL (0-0.2) Nucleated Red Blood Cells 0.0 % Sodium Level 139 mmol/L (136-145) Potassium Level 3.7 mmol/L (3.5-5.1) Chloride Level 98 mmol/L (98-107) Carbon Dioxide Level 25 mmol/L (20-31) Anion Gap 16 (5-15) Blood Urea Nitrogen 64 mg/dL (9-23) Creatinine 3.31 mg/dL (0.700-1.30) Glomerular Filtration Rate Calc 18 mL/min (>90) BUN/Creatinine Ratio 19.3 (10.0-20.0) Serum Glucose 115 mg/dL (74-106) Calcium Level 9.9 mg/dL (8.7-10.4) Total Bilirubin 0.4 mg/dL (0.2-1.0) Aspartate Amino Transferase (AST) 29 U/L (13-40) Alanine Aminotransferase (ALT) 38 U/L (7-40) Alkaline Phosphatase 94 U/L (46-116) Total Protein 8.1 g/dL (5.7-8.2) Albumin 4.1 g/dL (3.2-4.8) Troponin I High Sensitivity 11 ng/L (</=54) D-Dimer, Quantitative 1.72 mg/L FEU (0.0-0.49) B-Type Natriuretic Peptide 62.71 pg/mL (0-100) Other Laboratory Tests 11/27/24 07:35 Brief Hx & Hospital Course: . This is a 79 years old male with past medical history of end-stage renal disease, not on hemodialysis, prostate cancer, nephrostomy tube, hypertension presented to emergency department because of generalized weakness. Patient also has been experience a sudden onset of right hip pain. He said that he had prostate cancer that recently metastasized to his spinal cord and bone of both lower extremity. The patient was admitted for pneumonia. The patient was put on IV antibiotic with Rocephin and Zithromax. The patient also complained of severe pain. However the patient can not tolerate oral pain medication. Every time he takes medication he vomited the mouth. The patient was put on fentanyl patch. The patient's pain tolerate better after received fentanyl patch. Patient however still requiring breakthrough pain with Dilaudid. The patient's CT scan abdomen pelvis showed:1. Air-fluid distention of the stomach correlate for underlying gastritis versus gastroparesis. Known significant sacral canal invasion and osseous metastatic involvement of the sacrum corroborating prior PSMA finding. Likely possible extension into the presacral space given associated slight mesorectal fat plane edema. The patient nephrostomy tube did not work so we consulted Urology and nephrostomy tube was changed by Dr. Cornelius, urologist. The patient also unable to keep food down. Dr. Craig, GI specialist did a endoscopy today. It showed: 2-3 cm sliding-type hiatal hernia with grade B to C erosive esophagitis with distal esophageal ulcers extending into the distal 5 cm of the esophagus. [id number] gastroparesis with retained bile and gastric contents in the proximal stomach with some gastric distention. Otherwise normal examination up to the 2nd and 3rd part of the duodenal with no evidence of gastroduodenal obstruction . The biopsy was done and she recommend the patient to follow up with her in a couple weeks for biopsy report. Patient also was recommended to put on Protonix 40 mg p.o. daily and Carafate a 1000 mg p.o. twice per day. If his intractable nausea and vomiting is not improved, she recommend gastric empty studying. I also discussed in length with the family regarding to his prostate cancer with metastasized. His pain that severe and it cause him not able to walk that well. So hospice is the best option for the patient plan of care now. The family agree and request hospice evaluation. [facility] came and talk to the family and accepted the patient to their service so today after EGD I discharge the patient home with hospice protocol. Advised the patient to follow up with primary care physician 1-2 weeks. Follow up with Dr. Cornelius per schedule. Physical exam: HEENT: Normocephalic atraumatic pupils equal react to light and accommodation. Extraocular muscles intact, conjunctiva pink, oropharynx moist, no thrush, no exudate. Lymphatic: No lymphadenopathy Cardiovascular exam: S1, S2 was heard. No murmurs, rubs, gallops Lung: Clear on auscultation bilaterally, no wheeze, rale, rhonchi. GI: Abdominal soft, nondistended, nontenderness, positive bowel sounds. Extremity: No crepitus, cyanosis, edema. Pedal pulses present bilateral. Full range of motion. Skin: Normal turgor, no rash. Psych: Alert, oriented x3. Neurology: No focal deficits, cranial nerve II to XII grossly intact. This medical document was created using an electronic medical record system with [employer] direct computerized dictation system. Although this document has been carefully reviewed, there may still be some phonetic and typographical errors. These areas are purely typographical due to imperfections of the software programs, and do not reflect any compromise in the patient's medical care. Condition at Discharge: Guarded Final Diagnosis/Problems List Intractable pain due to mets of prostate cancer to bone CT scan show: Known significant sacral canal invasion and osseous metastatic involvement of the sacrum corroborating prior PSMA finding. Likely possible extension into the presacral space given associated slight mesorectal fat plane edema Hyponatremia Anemia ESRD Gastritis Elevation of d-dimer Generalized weakness Pneumonia Nephrostomy tube status post exchange Intractable nausea/vomiting Adult failure to thrive Discharge Disposition: Hospice - Home Discharge Instruct/Medications Diet: Regular Activity: No Restrictions, As Tolerated Follow Up/Referral: pcp 1-[address] Cornelius, urologist per schedule Oncologist per schedule Scheduled Azithromycin (Zithromax Tablet), 250 MG PO DAILY Fentanyl (Fentanyl), 25 MCG TD every 72 hours Ferrous Sulfate (Ferrous Sulfate), 325 MG PO DAILY, (Reported) Furosemide (Lasix), 40 MG PO BID, (Reported) Megestrol Acetate (Appetite) (Megestrol Acetate), 625 MG PO BID Pantoprazole Sodium Sesquihydr (Protonix), 40 MG PO DAILY Potassium Chloride (Potassium Chloride ER), 20 MEQ PO DAILY, (Reported) Relugolix (Orgovyx), 50 MG PO DAILY, (Reported) Sucralfate (Carafate Susp), 10 ML PO BID Trazodone Hcl (Trazodone Hcl), 100 MG PO HS Scheduled PRN Docusate Sodium (Docusate Sodium), 100 MG PO BIDPRN PRN Discharge Statement: "Patient was advised to return to the ER or call 911 if any headaches, dizziness, shortness of breath, chest pain, abdominal pain, bleeding, fevers, or worsening of medical condition. Patient was counseled about treatment plan, medications, possible side effects, patientverbalized understanding. All questions were answered to the best of my ability. This discharge took greater then 30 minutes in planning, reviewing documentation, counseling the patient, and discussing with other team members." ASSESSMENT ASSESSMENT Assessment Failure to thrive, Prostate cancer with mets Date of Service: Dec 01, 2024 Billing Provider: GEORGES DANG MD Common Visit Codes: 81735-WNF/OBS DISCH DAY >30min GEORGES DANG MD Dec 01, 2024 11:41
--- NOTE | 2024-12-01 13:00 | DVH ---
EXAM: XY CHANGE PERC. DRAIN W CONTRAST DATE OF SERVICE: 12/01/2024 10:07 AM ORD ERING PHYSICIAN: GEORGES DANG REASON FOR EXAM: Suboptimal position of right nephrostomy catheter. TECHNIQUE: Genitourinary catheter exchange Side:Right ak chin Local anesthesia was administered. Initial nephrostogram was performed. A wire was placed through the existing tube and it was removed. The new tube was advanced over the wire and position was confirmed with contrast injection. Pre-existing genitourinary catheter: 8.5 Stateless MPD Genitourinary catheter(s) placed: 8.5 Stateless MPD Findings: Appropriate position of new catheter; no significant dilation of right renal collecting sy stem External catheter securement: Non-absorbable suture and adhesive anchoring device COMPARISON: XY ANTEGRADE NEPHROSTOGRAM on DOS: 12/01/24, XY PERCUTANEOUS NEPHROSTOMY on DOS: 09/18/24, XY CHANGE PERC. DRAIN W CONTRAST on DOS: 09/18/24, XY PERCUTANEOUS NEPHROSTOMY on DOS: 05/27/24, US KIDNE Y on DOS: 05/21/24, XY CHANGE PERC. DRAIN W CONTRAST on DOS: 09/18/24 FINDINGS: Appropriate position of new catheter; no significant dilation of right renal collecting s ystem. Contrast agent: Visipaque 320 Contrast volume (mL): 10 Radiation dose fluoroscopy time (seconds): 32 Reference air kerma (mGy): 8.8 kerma area product (Gy-cm2): 248.49 IMPRESSION: Successful right nephrostomy exchange. Plan: Flush drain with 10 cc normal saline to maintain patency. Routine exchange in 3 months if urinary div ersion still needed.
--- NOTE | 2024-12-01 13:00 | DVH ---
PROCEDURE: Antegrade Nephrostogram HISTORY: right nephrostomy status OPERATORS: Ankit Moreau DOCUMENTATION: Informed consent was obtained and a procedural time out was performed. SEDATION: No sedation FLUORO TIME: 0.2 minutes Dose: 172.14 TECHNIQUE: Existing right nephrostomy catheter was disconnected from the drainage bag. Catheter hub w as sterilized and contrast was injected under fluroscopy guidance. There was good opacification with adequate decompression of the collecting system;however catheter side hole was outside of the kidney. FINDINGS: Right nephrostomy catheter tip is identified within the collecting system with sidehole out side of the right kidney . IMPRESSION: 1. Right nephrostomy catheter has been pulled back slightly with pigtail still in the collecting syst em. The right nephrostomy catheter will be replaced.
[2024-12-01] MEDS ORDERED: NALOXONE HCL 0.4 MG/ML VIAL ONE (15:18)
[2024-12-01] MEDS ORDERED: FLUMAZENIL 0.1 MG/ML INJ 10ML MDV IV ONE (15:18)
[2024-12-01] MEDS ORDERED: SODIUM CHLORIDE LOCK 10 ML ONE (15:18)
[2024-12-01] MEDS: MIDAZOLAM HCL 5 MG/ML-1ML VIAL ONE (15:38)
[2024-12-01] MEDS: fentaNYL CITRATE 100 MCG/2 ML VL ONE (15:38)
[2024-12-01] MEDS: diphenhdrAMINE HCL 50 MG/1 ML VL ONE (15:46)
--- NOTE | 2024-12-01 16:09 | DVHOP2 ---
Operative Report DATE OF OPERATION: 12/01/24 PROCEDURE: Upper Endoscopy with biopsy. PREOPERATIVE INDICATION: The patient is a 79 -year-old male undergoing endoscopy for epigastric pain and abnormal finding GI tract imaging POSTOPERATIVE DIAGNOSES: 1. 2-3 cm sliding-type hiatal hernia with grade B to C erosive esophagitis with distal esophageal ulcers extending into the distal 5 cm of the esophagus 2. [id number] gastroparesis with retained bile and gastric contents in the proximal stomach with some gastric distention 3. Otherwise normal examination up to the 2nd and 3rd part of the duodenal with no evidence of gastroduodenal obstruction PROCEDURE PERFORMED BY: Yasmine Craig GI NURSE: Alexa SCOPE: Olympus videoendoscope. ASA CLASS: 3 PREOPERATIVE MEDICATIONS: Versed 2 mg, Fentanyl 50 mcg, Benadryl 25 mg I administered moderate sedation throughout this _10_ minutes procedure. An independent trained observer pushed medications at my direction, and monitored the patient's level of consciousness and physiological status throughout. PROCEDURE IN DETAIL: After obtaining an informed consent, the patient was placed on left lateral decubitus position. The patient was then sedated with the above medications. A bite block was placed between his teeth. The endoscope was then passed through the oropharynx, into the esophagus, and through the stomach and pylorus up to the second and third part of the duodenum. The endoscope was then withdrawn. The 2nd and 3rd part of the duodenum and the duodenal bulb were normal. The pre-pyloric area and antrum showed mild gastritis There was no evidence of pyloric channel stenosis or duodenal obstruction up to the 3rd part of the duodenum. Patient had mild gastric distention possibly suggestive of gastroparesis On retroflexion and straight on view the patient had moderate amount of retained gastric food contents and bile in the proximal stomach and fundus The endoscope was then withdrawn into the distal esophagus where the patient had a 3 cm sliding-type hiatal hernia with grade C erosive esophagitis There were esophageal ulcers extending into the distal 5 cm of the esophagus. Duodenal gastric and esophageal biopsies were obtained The remaining distal and proximal esophagus and oropharynx were unremarkable The patient tolerated the procedure well without difficulty. COMPLICATIONS : None SPECIMENS: Duodenal biopsies Gastric biopsies Distal esophageal biopsies DISPOSITION: Transfer back to the floor Stable PLAN: 1. Await for biopsy result 2. Will place pt on Protonix 40 mg bid IV 3. Carafate suspension 1 g p.o. twice a day 4. Reglan IV 5 mg q.8 hours 5. Consider gastric emptying study and/or small-bowel series if symptoms persist YASMINE CRAIG MD Dec 01, 2024 16:09
[2024-12-01] MEDS: LIDOCAINE VISCOUS 2% 15ML UD ONE (17:55)
[2024-12-01] MEDS ORDERED: METOCLOPRAMIDE HCL 5MG/ml INJ 2ml VIAL IV SCH (22:00)
[2024-12-01] MEDS ORDERED: SUCRALFATE 1 GM/10 ML ORAL SUSP PO SCH (22:00)
[2024-12-01] MEDS ORDERED: PANTOPRAZOLE 40 MG/10 ML VIAL INJ IV SCH (22:00)
--- NOTE | 2024-12-02 09:17 | ECG ---
[facility] Test Date: 2024-11-26 Test Time: 14:59:27 Pat Name: YOANA KAPADIA Department: [facility] ED Patient ID: [id number] Room: 0289T B Gender: M Electronic [employer] Officer: MARRY : 1945 Requested By: JOHNY WALLS Order Number: [id number] Reading MD: All Rahman Measurements Intervals [place] Rate: 86 P: 50 GA: 139 QRS: 71 QRSD: 91 T: 17 QT: 398 QTc: 476 Interpretive Statements Sinus rhythm Borderline T abnormalities, anterior leads Borderline prolonged QT interval Electronically Signed On 12-05-2024 18:33:54 PDT by All Rahman Please click the below link to view image of tracing.
[2024-12-02] MEDS ORDERED: PANT40TA2 PO (10:21)
[2024-12-02] MEDS ORDERED: SUCR1SUS26 PO (10:21)
== END 2024-12-01 19:54 | disposition hospice, inpatient (51) | DRG 193 ==
LOC: ER 14:57 → EDBD 14:57 → OVERFLOW 23:17 → TELE-EAST 11-27 02:50 → TELE-WESTW 11-30 12:07
PROVIDERS: ADMIT Internal Medicine; ATTEND Internal Medicine
PROC: 0DB98ZX Excision of Duodenum, Via Natural or Artificial Opening Endoscopic, Diagnostic (ICD-10-PCS; 2024-12-01)
PROC: 0DB68ZX Excision of Stomach, Via Natural or Artificial Opening Endoscopic, Diagnostic (ICD-10-PCS; 2024-12-01)
PROC: 0DB58ZX Excision of Esophagus, Via Natural or Artificial Opening Endoscopic, Diagnostic (ICD-10-PCS; 2024-12-01)
PROC: 0T9030Z Drainage of Right Kidney with Drainage Device, Percutaneous Approach (ICD-10-PCS; principal; 2024-12-01 15:32)
DX: J18.9 Pneumonia, unspecified organism (principal); N18.6 End stage renal disease; K22.10 Ulcer of esophagus without bleeding; E87.1 Hypo-osmolality and hyponatremia; I12.0 Hypertensive chronic kidney disease with stage 5 chronic kidney disease or end stage renal disease; C79.51 Secondary malignant neoplasm of bone; C61 Malignant neoplasm of prostate; R62.7 Adult failure to thrive; D63.1 Anemia in chronic kidney disease; N13.9 Obstructive and reflux uropathy, unspecified; K29.70 Gastritis, unspecified, without bleeding; K44.9 Diaphragmatic hernia without obstruction or gangrene; K31.89 Other diseases of stomach and duodenum; K31.84 Gastroparesis; G89.3 Neoplasm related pain (acute) (chronic); Z93.6 Other artificial openings of urinary tract status; Z83.3 Family history of diabetes mellitus; Z68.20 Body mass index [BMI] 20.0-20.9, adult
CPT/HCPCS: 36415; 43239; 50432; 71045; 74176; 74425; 75984; 80048; 80053; 83880; 84154; 84484; 85025; 85379; 86850; 86900; 86901; 87086; 93005; 96365; 96372; 97110; 97116; 97163; 97530; C1729; G0378; J2003; J2250; J2405